=== PATIENT | male | born 1990 | race Caucasian/White ===

== ENCOUNTER → 2017-01-16 | Outpatient (CLI) | payer OTHER | END | disposition home or self-care (01) | LOC: CPPFTMAIN 11:48 | PROVIDERS: ATTEND Family Medicine | DX: J45.40 Moderate persistent asthma, uncomplicated (principal) | CPT/HCPCS: 94060; 94726; 94729 ==

== ENCOUNTER → 2017-08-08 | Outpatient (CLI) | payer OTHER ==
--- NOTE | 2017-08-15 10:40 | P.ARTDOP ---
Arterial Doppler LOWER EXTREMITY ARTERIAL DOPPLER: DATE OF SERVICE: 08/08/2017 Reason for study: Foot pain. Doppler waveforms: Multiphasic bilaterally throughout. Pulse volume recording: Normal configuration. Pressure gradients: None. Ankle-brachial indices: Greater than 1 bilaterally. Toe pressures: 77 on the right, 98 on the left Impression: Normal study.
== END | disposition home or self-care (01) ==
LOC: RADUSWWP 12:45
PROVIDERS: ATTEND Family Medicine
DX: R20.2 Paresthesia of skin (principal)
CPT/HCPCS: 93923

== ENCOUNTER 2017-09-08 08:36 | Emergency (ER) | payer OTHER ==
[2017-09-08 08:45] VITALS: PULSE 83; TEMP 98.2
--- NOTE | 2017-09-08 10:07 | ED ---
URI HPI - General Chief Complaint: Upper Respiratory Infection Stated Complaint: drainage Time Seen by Provider: 09/08/17 08:53 Source: patient, RN notes reviewed Mode of arrival: ambulatory Limitations: no limitations - History of Present Illness Initial Comments: This a 27-year-old male presents emergency Department with chief complaint of cough congestion over the last week. Patient states symptoms do not seem to be improving. He states he did have a fever beginning and states that currently he just feels very rundown and achy. He's been taking some DayQuil and NyQuil with minimal relief. He denies any shortness of breath though that he does have asthma and uses his breathing treatments as needed. Patient denies any nausea vomiting diarrhea constipation - Related Data Home Medications Medication Instructions Recorded Confirmed Albuterol Nebulized [Ventolin 2.5 mg INHALATION DAILY PRN 03/27/17 03/27/17 Nebulized] Aspirin 325 mg PO DAILY PRN 03/27/17 03/27/17 Budesonide-Formot 160-4.5 Mcg 2 puff INHALATION BID PRN 03/27/17 03/27/17 [Symbicort 160-4.5 Mcg Inhaler] Montelukast [Singulair] 10 mg PO HS 03/27/17 03/27/17 Allergies Allergy/AdvReac Type Severity Reaction Status Date / Time egg Allergy Rash/Hives Verified 09/08/17 08:46 latex Allergy Rash/Hives Verified 09/08/17 08:46 Penicillins Allergy Unknown Verified 09/08/17 08:46 antibiotics Allergy Unknown Uncoded 09/08/17 08:46 antihistamines Allergy Unknown Uncoded 09/08/17 08:46 Review of Systems ROS Statement: Those systems with pertinent positive or pertinent negative responses have been documented in the HPI. ROS Other: All systems not noted in ROS Statement are negative. Past Medical History Past Medical History: Asthma, GERD/Reflux, Osteoarthritis (OA), Pneumonia Additional Past Medical History / Comment(s): eosinophilic gastroenteritis, osteoporosis, History of Any Multi-Drug Resistant Organisms: None Reported Past Surgical History: Unable to Obtain Additional Past Surgical History / Comment(s): surgery for undescended testicle , EGD, colonocopy Past Anesthesia/Blood Transfusion Reactions: Previous Problems w/ Anesthesia, Motion Sickness Additional Past Anesthesia/Blood Transfusion Reaction / Comment(s): "My heart stopped and I stopped breathing age 10 during a EGD/colonoscopy", was done at [facility] about 15 yrs ago. Past Psychological History: Anxiety, Depression, PTSD Smoking Status: Never smoker Past Alcohol Use History: None Reported Past Drug Use History: None Reported - Past Family History Mother Family Medical History: Cancer Father Family Medical History: Cancer General Exam Limitations: no limitations General appearance: alert, in no apparent distress Head exam: Present: atraumatic, normocephalic, normal inspection Eye exam: Present: normal appearance, PERRL, EOMI. Absent: scleral icterus, conjunctival injection, periorbital swelling ENT exam: Present: normal exam, normal oropharynx, mucous membranes moist, TM's normal bilaterally, normal external ear exam Neck exam: Present: normal inspection, full ROM. Absent: tenderness, meningismus, lymphadenopathy Respiratory exam: Present: normal lung sounds bilaterally. Absent: respiratory distress, wheezes, rales, rhonchi, stridor Cardiovascular Exam: Present: regular rate, normal rhythm, normal heart sounds. Absent: systolic murmur, diastolic murmur, rubs, gallop, clicks Course Vital Signs 09/08/17 08:43 Temperature 98.2 F Pulse Rate 83 Respiratory 22 Rate Blood Pressure 115/86 O2 Sat by Pulse 100 Oximetry Medical Decision Making - Medical Decision Making 27-year-old male presented for cough congestion. Patient has influenza a chest x-ray within normal limits. Patient symptoms aren't present for 5-6 days will not be treated with him was reviewed at this time. Patient will follow-up for recheck. - Lab Data Lab Results 09/08/17 Range/Units 09:17 Influenza Type A RNA Detected H (Not Detectd) Influenza Type B (PCR) Not Detected (Not Detectd) Disposition Clinical Impression: Influenza Disposition: HOME SELF-CARE Condition: Stable Instructions: Influenza (ED) Additional Instructions: Please return to the Emergency Department if symptoms worsen or any other concerns. Referrals: Breanna Mao MD [Primary Care Provider] - 1-2 days Time of Disposition: 10:23
--- NOTE | 2017-09-08 10:21 | XR ---
EXAMINATION TYPE: XR chest 2V DATE OF EXAM: 09/08/2017 HISTORY: Cough. REFERENCE: Previous study dated 09/13/2015. FINDINGS: The lungs are clear. Pleural space are clear. The heart is not enlarged. IMPRESSION: NORMAL CHEST.
[2017-09-08 10:38] VITALS: BP 121/56; RESP 20
== END 2017-09-08 10:38 | disposition home or self-care (01) ==
LOC: EC 08:36
DX: J10.1 Influenza due to other identified influenza virus with other respiratory manifestations (principal); J45.909 Unspecified asthma, uncomplicated; Z79.899 Other long term (current) drug therapy; Z88.0 Allergy status to penicillin; Z88.1 Allergy status to other antibiotic agents; Z88.8 Allergy status to other drugs, medicaments and biological substances; Z91.012 Allergy to eggs; Z91.040 Latex allergy status; Z87.01 Personal history of pneumonia (recurrent)
CPT/HCPCS: 71046; 87502; 99283

== ENCOUNTER → 2018-10-03 | Outpatient (CLI) | payer OTHER ==
--- NOTE | 2018-10-03 16:12 | XR ---
EXAMINATION TYPE: XR chest 1V DATE OF EXAM: 10/03/2018 COMPARISON: Prior chest x-ray 09/08/2017 HISTORY: Abdominal pain, bowel habit changes TECHNIQUE: Single frontal view of the chest is obtained. FINDINGS: There is no focal air space opacity, pleural effusion, or pneumothorax seen. The cardiac silhouette size is within normal limits. The osseous structures are intact. IMPRESSION: No acute process.
--- NOTE | 2018-10-03 16:13 | XR ---
EXAMINATION TYPE: XR abdomen 2V DATE OF EXAM: 10/03/2018 4:08 PM CLINICAL HISTORY: Lower abdominal pain TECHNIQUE: Supine and upright views of the abdomen were obtained. COMPARISON: None. FINDINGS: There is a dextroscoliotic curvature on the upright view does not persist on the supine vie w and is positional. Scattered gas is seen in non-distended small bowel loops. Gas and fecal material is seen in non-distended colon. There is no pneumoperitoneum or abnormal calcification appreciated. The lung bases are clear and the osseous structures are intact. IMPRESSION: Nonobstructive bowel gas pattern.
== END | disposition home or self-care (01) ==
LOC: RADXRMAIN 15:48
PROVIDERS: ATTEND Family Medicine
DX: R10.84 Generalized abdominal pain (principal); R19.4 Change in bowel habit
CPT/HCPCS: 71045; 74019

== ENCOUNTER → 2018-10-04 | Outpatient (CLI) | payer OTHER ==
--- NOTE | 2018-10-04 10:47 | US ---
EXAMINATION TYPE: US abdomen complete DATE OF EXAM: 10/04/2018 COMPARISON: NONE CLINICAL HISTORY: R10.84 Gen Abd Pain, R19.4 Bowel Habit Changes. EXAM MEASUREMENTS: Liver Length: 12.7 cm Gallbladder Wall: 0.3 cm CBD: 0.3 cm Spleen: 10.3 cm Right Kidney: 9.8 x 3.6 x 4.4 cm Left Kidney: 9.4 x 5.1 x 4.3 cm Pancreas: Tail obscured by overlying bowel gas Liver: wnl Gallbladder: Wall measuring upper limits of normal Evidence for sonographic Woodruff's sign: No CBD: wnl Spleen: wnl Right Kidney: No hydronephrosis or masses seen Left Kidney: No hydronephrosis or masses seen Upper IVC: wnl Abd Aorta: wnl The liver is homogenous. The intrahepatic portion of the IVC and proximal abdominal aorta are within normal limits. There is no evidence of cholelithiasis. Common bile duct is unremarkable. The visu alized portions of the pancreas are homogenous. The spleen is unremarkable. Kidneys are symmetric a nd free of hydronephrosis. No renal lesions are seen. IMPRESSION: Gallbladder wall appears upper limits of normal. Otherwise unremarkable abdominal ultraso und. HIDA scan with CCK could evaluate for chronic cholecystitis or biliary dyskinesia there is furth er clinical concern.
== END | disposition home or self-care (01) ==
LOC: RADUSWWP 10:08
PROVIDERS: ATTEND Family Medicine
DX: R10.84 Generalized abdominal pain (principal); R19.4 Change in bowel habit
CPT/HCPCS: 76700

== ENCOUNTER → 2018-10-26 | Outpatient (CLI) | payer OTHER ==
--- NOTE | 2018-10-26 14:39 | NM ---
EXAMINATION TYPE: NM hepatobiliary w CCK DATE OF EXAM: 10/26/2018 COMPARISON: Abdominal ultrasound dated 10/04/2018 HISTORY: Abdominal pain TECHNIQUE: After the intravenous administration of 5.1 mCi Tc 99m Mebrofenin hepatobiliary scintigrap hy is performed. Immediate images post injection. FINDINGS: There is satisfactory initial accumulation of tracer by the liver. The gallbladder is visualized wit hin 34 minutes. The small bowel activity is noted within 12 minutes. At one hour CCK was administer ed, patient was injected with 1.1 mcg of Kinevac, and gallbladder ejection fraction is calculated at 19 %, abnormal. Therefore there is no scintigraphic evidence of cystic or common bile duct obstructi on to suggest acute cholecystitis or gallbladder dyskinesia. IMPRESSION: 1. Abnormal gallbladder ejection fraction of 19% corresponding to biliary dyskinesia. 2. No scintigraphic evidence of acute or chronic cholecystitis.
== END | disposition home or self-care (01) ==
LOC: RADNMMAIN 11:45
PROVIDERS: ATTEND Family Medicine
DX: K82.8 Other specified diseases of gallbladder (principal)
CPT/HCPCS: 78227; A9537; J2805

== ENCOUNTER 2019-11-03 18:16 | Emergency (ER) | payer OTHER ==
[2019-11-03 18:23] VITALS: BP 121/76; PULSE 81; TEMP 98
[2019-11-03 18:43] VITALS: RESP 16
--- NOTE | 2019-11-03 19:10 | XR ---
EXAMINATION TYPE: XR chest 2V DATE OF EXAM: 11/03/2019 COMPARISON: 10/03/2018 HISTORY: Chest pain. Cough TECHNIQUE: FINDINGS: Heart and mediastinum are normal. Lungs are clear. Diaphragm is normal. Bony thorax is inta ct. IMPRESSION: Normal chest. No change.
--- NOTE | 2019-11-03 19:23 | ED ---
URI HPI - General Chief Complaint: Upper Respiratory Infection Stated Complaint: REJI Time Seen by Provider: 11/03/19 18:27 Source: patient Mode of arrival: ambulatory Limitations: no limitations - History of Present Illness Initial Comments: Patient is a 29-year-old male presenting to emergency Department with complaints of a mild cough 2 days. He states he has a history of severe asthma. He did call his PCPs office today but they were not able to see him for a checkup so patient said to come to the ER. He denies any fever, shortness of breath, chest pain, abdominal pain, nausea, vomiting. He simply states that he feels like his cough is getting worse and he feels like he might need a round of steroids. He said he tried his nebulizer treatment at home with only mild improvement in symptoms. He has no other complaints at this time. Upon arrival to the ER, his vital signs are stable. - Related Data Home Medications Medication Instructions Recorded Confirmed Albuterol Nebulized [Ventolin 2.5 mg INHALATION DAILY PRN 03/27/17 03/27/17 Nebulized] Aspirin 325 mg PO DAILY PRN 03/27/17 03/27/17 Budesonide-Formot 160-4.5 Mcg 2 puff INHALATION BID PRN 03/27/17 03/27/17 [Symbicort 160-4.5 Mcg Inhaler] Montelukast [Singulair] 10 mg PO HS 03/27/17 03/27/17 Previous Rx's Medication Instructions Recorded methylPREDNISolone [Medrol Dose 4 mg PO DIRECTED #1 pack 11/03/19 Pack] Allergies Allergy/AdvReac Type Severity Reaction Status Date / Time egg Allergy Rash/Hives Verified 11/03/19 18:23 latex Allergy Rash/Hives Verified 11/03/19 18:23 Penicillins Allergy Unknown Verified 11/03/19 18:23 antibiotics Allergy Unknown Uncoded 11/03/19 18:23 antihistamines Allergy Unknown Uncoded 11/03/19 18:23 Review of Systems ROS Statement: Those systems with pertinent positive or pertinent negative responses have been documented in the HPI. ROS Other: All systems not noted in ROS Statement are negative. Past Medical History Past Medical History: Asthma, GERD/Reflux, Osteoarthritis (OA), Pneumonia Additional Past Medical History / Comment(s): eosinophilic gastroenteritis, osteoporosis, History of Any Multi-Drug Resistant Organisms: None Reported Past Surgical History: Unable to Obtain Additional Past Surgical History / Comment(s): surgery for undescended testicle, EGD, colonocopy Past Anesthesia/Blood Transfusion Reactions: Previous Problems w/ Anesthesia, Motion Sickness Additional Past Anesthesia/Blood Transfusion Reaction / Comment(s): "My heart stopped and I stopped breathing age 10 during a EGD/colonoscopy", was done at [facility] about 15 yrs ago. Past Psychological History: Anxiety, Depression, PTSD Smoking Status: Never smoker Past Alcohol Use History: None Reported Past Drug Use History: None Reported - Past Family History Mother Family Medical History: Cancer Father Family Medical History: Cancer General Exam - General Exam Comments Initial Comments: GENERAL: Well-appearing, well-nourished and in no acute distress. HEAD: Atraumatic, normocephalic. EYES: Pupils equal round and reactive to light, extraocular movements intact, sclera anicteric, conjunctiva are normal. ENT: TMs normal, nares patent, oropharynx clear without exudates. Moist mucous membranes. NECK: Normal range of motion, supple without lymphadenopathy or JVD. LUNGS: Breath sounds clear to auscultation bilaterally and equal. No wheezes rales or rhonchi. HEART: Regular rate and rhythm without murmurs, rubs or gallops. ABDOMEN: Soft, nontender, normoactive bowel sounds. No guarding, no rebound. No masses appreciated. : Deferred EXTREMITIES: Normal range of motion, no pitting or edema. No clubbing or cyanosis. NEUROLOGICAL: Normal speech, normal gait. PSYCH: Normal mood, normal affect. SKIN: Warm, Dry, normal turgor, no rashes or lesions noted. Limitations: no limitations Course Vital Signs 11/03/19 11/03/19 18:20 18:42 Temperature 98.0 F Pulse Rate 81 Respiratory 18 16 Rate Blood Pressure 121/76 O2 Sat by Pulse 99 Oximetry Medical Decision Making - Medical Decision Making Patient is a 29-year-old male presenting with a cough 2 days. He does have a history of severe asthma. Patient's exam is unremarkable. His vital signs are stable. Chest x-ray shows no acute findings. Patient is influenza-negative. I discussed with patient this is most likely viral in nature. He will be given a short course of steroids secondary to acute asthma exacerbation. He is in agreement with this plan of care. Patient will follow up with PCP as needed. Return parameters were discussed with the patient and he verbalized understanding. Case discussed with Dr. Diaz. - Lab Data Lab Results 11/03/19 Range/Units 18:37 Influenza Type A RNA Not Detected (Not Detectd) Influenza Type B (PCR) Not Detected (Not Detectd) Disposition Clinical Impression: Viral infection Disposition: HOME SELF-CARE Condition: Stable Instructions (If sedation given, give patient instructions): Upper Respiratory Infection (ED) Additional Instructions: Please return to the Emergency Department if symptoms worsen or any other concerns. Take steroids as prescribed. Follow-up with PCP as needed. Prescriptions: methylPREDNISolone [Medrol Dose Pack] 4 mg PO DIRECTED #1 pack Is patient prescribed a controlled substance at d/c from ED?: No Referrals: Breanna Mao MD [Primary Care Provider] - 1-2 days
== END 2019-11-03 19:28 | disposition home or self-care (01) ==
LOC: EC 18:16
DX: B34.9 Viral infection, unspecified (principal); J45.901 Unspecified asthma with (acute) exacerbation; Z79.899 Other long term (current) drug therapy; Z88.0 Allergy status to penicillin; Z91.040 Latex allergy status; Z88.1 Allergy status to other antibiotic agents; Z88.8 Allergy status to other drugs, medicaments and biological substances; Z91.012 Allergy to eggs
CPT/HCPCS: 71046; 87502; 99285

== ENCOUNTER 2020-02-26 06:04 | Emergency (ER) | payer OTHER ==
[2020-02-26] MEDS ORDERED: IPRATROPIUM-ALBUTEROL 3 ML NEB INHALATION STA (06:29)
--- NOTE | 2020-02-26 06:35 | ED ---
SOB HPI - General Chief Complaint: Shortness of Breath Stated Complaint: REIJ Time Seen by Provider: 02/26/20 06:15 Source: patient Mode of arrival: ambulatory - History of Present Illness Initial Comments: Patient is a 30-year-old male, with history of asthma, presenting to the emergency Department with complaints of shortness of breath and chest tightness over the last week. Patient states he was seen at [facility] 2 days ago for same complaint and was sent home with a steroid Dosepak. He states his chest x- ray was clear at that time. He states he did try an albuterol treatment at approximately 11 PM or midnight last night. He states he woke up this morning feeling the same so he wanted to be seen again. He states that his family member recently tested positive for COVID, so he was concerned for that as well and wanted to be tested. He denies any recent fever, chills, nausea, vomiting. He states he has had one episode of diarrhea. He has no further complaints at this time. Upon arrival to the ER, his vital signs are stable. - Related Data Home Medications Medication Instructions Recorded Confirmed Albuterol Nebulized [Ventolin 2.5 mg INHALATION DAILY PRN 03/27/17 03/27/17 Nebulized] Aspirin 325 mg PO DAILY PRN 03/27/17 03/27/17 Budesonide-Formot 160-4.5 Mcg 2 puff INHALATION BID PRN 03/27/17 03/27/17 [Symbicort 160-4.5 Mcg Inhaler] Montelukast [Singulair] 10 mg PO HS 03/27/17 03/27/17 Previous Rx's Medication Instructions Recorded methylPREDNISolone [Medrol Dose 4 mg PO DIRECTED #1 pack 11/03/19 Pack] Allergies Allergy/AdvReac Type Severity Reaction Status Date / Time egg Allergy Rash/Hives Verified 02/26/20 06:12 latex Allergy Rash/Hives Verified 02/26/20 06:12 Penicillins Allergy Unknown Verified 02/26/20 06:12 antibiotics Allergy Unknown Uncoded 11/03/19 18:23 antihistamines Allergy Unknown Uncoded 11/03/19 18:23 Review of Systems ROS Statement: Those systems with pertinent positive or pertinent negative responses have been documented in the HPI. ROS Other: All systems not noted in ROS Statement are negative. Past Medical History Past Medical History: Asthma, GERD/Reflux, Osteoarthritis (OA), Pneumonia Additional Past Medical History / Comment(s): eosinophilic gastroenteritis, osteoporosis, History of Any Multi-Drug Resistant Organisms: None Reported Past Surgical History: Unable to Obtain Additional Past Surgical History / Comment(s): surgery for undescended testicle, EGD, colonocopy Past Anesthesia/Blood Transfusion Reactions: Previous Problems w/ Anesthesia, Motion Sickness Additional Past Anesthesia/Blood Transfusion Reaction / Comment(s): "My heart stopped and I stopped breathing age 10 during a EGD/colonoscopy", was done at [facility] about 15 yrs ago. Past Psychological History: Anxiety, Depression, PTSD Smoking Status: Never smoker Past Alcohol Use History: Occasional Past Drug Use History: None Reported - Past Family History Mother Family Medical History: Cancer Father Family Medical History: Cancer General Exam - General Exam Comments Initial Comments: GENERAL: Patient appears anxious however he is well-appearing, well-nourished and in no acute distress. HEAD: Atraumatic, normocephalic. EYES: Pupils equal round and reactive to light, extraocular movements intact, sclera anicteric, conjunctiva are normal. ENT: TMs normal, nares patent, oropharynx clear without exudates. Moist mucous membranes. NECK: Normal range of motion, supple without lymphadenopathy or JVD. LUNGS: Breath sounds clear to auscultation bilaterally and equal. No wheezes rales or rhonchi. HEART: Regular rate and rhythm without murmurs, rubs or gallops. ABDOMEN: Soft, nontender, normoactive bowel sounds. No guarding, no rebound. No masses appreciated. : Deferred EXTREMITIES: Normal range of motion, no pitting or edema. No clubbing or cyanosis. NEUROLOGICAL: Normal speech, normal gait. PSYCH: Normal mood, normal affect. SKIN: Warm, Dry, normal turgor, no rashes or lesions noted. Course Vital Signs 02/26/20 02/26/20 02/26/20 06:09 06:16 07:03 Temperature 97.8 F Pulse Rate 74 75 Respiratory 23 22 Rate Blood Pressure 124/90 O2 Sat by Pulse 100 Oximetry 02/26/20 02/26/20 07:18 07:45 Temperature Pulse Rate 86 80 Respiratory 18 Rate Blood Pressure 109/74 O2 Sat by Pulse 98 Oximetry Medical Decision Making - Medical Decision Making Patient is a 30-year-old male with history of asthma presenting with stress of breath, chest tightness for the past week. He was seen at [facility] 2 days ago started dose pack. Vitals are stable upon arrival, stating percent on room air. His exam is unremarkable, no wheezing. Chest x-ray shows no acute abnormalities, EKG shows no signs of acute ischemia. Patient was given a breathing treatment and steroids in the ER. He states he feels improvement. Patient will be tested for Covid secondary to recent exposure. This is pending at this time. He is stable for discharge. He'll continue with his oral steroids tomorrow. Patient is agreement with this plan of care. He'll follow up with his PCP. Return parameters were discussed with the patient and he verbalized understanding. - EKG Data EKG Comments: Normal sinus rhythm, normal ECG, no signs of acute ischemia. Ventricular rate 79, NJ interval 116, QT 378. Disposition Clinical Impression: Asthma exacerbation, Viral illness Disposition: HOME SELF-CARE Condition: Stable Instructions (If sedation given, give patient instructions): Asthma (ED) Additional Instructions: Please return to the Emergency Department if symptoms worsen or any other concerns. Continue with oral steroids tomorrow. Follow-up with PCP. Is patient prescribed a controlled substance at d/c from ED?: No Referrals: Breanna Mao MD [Primary Care Provider] - 1-2 days
--- NOTE | 2020-02-26 06:52 | XR ---
EXAM: XR Chest, 2 Views CLINICAL HISTORY: Chest tightness TECHNIQUE: Frontal and lateral views of the chest. COMPARISON: No relevant prior studies available. FINDINGS: Lungs: Unremarkable. No consolidation. Pleural space: Unremarkable. No pneumothorax. Heart: Unremarkable. No cardiomegaly. Mediastinum: Unremarkable. Bones/joints: Unremarkable. IMPRESSION: Normal chest x-rays.
[2020-02-26] MEDS ORDERED: methylPREDNISolone SOD SUCCI 125 MG/2 ML VIAL IM ONE (07:27)
[2020-02-27 09:52] VITALS: BP 109/74; PULSE 80; RESP 18; TEMP 97.8
== END 2020-02-26 07:45 | disposition home or self-care (01) ==
LOC: EC 06:04
DX: J45.901 Unspecified asthma with (acute) exacerbation (principal); B34.9 Viral infection, unspecified; R19.7 Diarrhea, unspecified; Z20.828 Contact with and (suspected) exposure to other viral communicable diseases; Z79.51 Long term (current) use of inhaled steroids; Z79.899 Other long term (current) drug therapy; Z91.012 Allergy to eggs; Z91.040 Latex allergy status; Z88.0 Allergy status to penicillin; Z88.1 Allergy status to other antibiotic agents; Z88.8 Allergy status to other drugs, medicaments and biological substances
CPT/HCPCS: 71046; 93005; 94640; 96372; 99285

== ENCOUNTER 2020-03-29 15:13 | Emergency (ER) | payer OTHER ==
[2020-03-29 15:27] VITALS: TEMP 98.1
--- NOTE | 2020-03-29 16:09 | XR ---
EXAMINATION TYPE: XR chest 1V portable DATE OF EXAM: 03/29/2020 CLINICAL HISTORY: Cough and intermittent chest tightness for one week. TECHNIQUE: Upright portable view of the chest obtained. COMPARISON: 02/26/2020 chest radiograph. FINDINGS: Lungs are mildly hyperinflated. The cardiomediastinal silhouette is within normal limits fo r size. Pulmonary vasculature is normal. There is no focal air space opacity, pleural effusion, or pn eumothorax seen. The osseous structures are intact. IMPRESSION: Mild hyperinflation. No focal opacity.
--- NOTE | 2020-03-29 16:23 | ED ---
General Adult HPI - General Chief complaint: Shortness of Breath Stated complaint: Chest pain Time Seen by Provider: 03/29/20 15:37 Source: patient, RN notes reviewed, old records reviewed Mode of arrival: wheelchair Limitations: no limitations - History of Present Illness Initial comments: 30-year-old male history of asthma presenting for evaluation of cough and dyspnea. Patient states he had asthma exacerbation by one month ago and was placed on steroids at that time. Today he's had increased productive cough and mild dyspnea. He states is similar to previous asthma exacerbations. Denies fever. His main concern is that he came in contact with a person who may have had COVID and his doctor recommended he be tested. Patient denies chest pain. Denies fever. Denies abdominal pain nausea vomiting. - Related Data Home Medications Medication Instructions Recorded Confirmed Albuterol Nebulized [Ventolin 2.5 mg INHALATION DAILY PRN 03/27/17 03/27/17 Nebulized] Aspirin 325 mg PO DAILY PRN 03/27/17 03/27/17 Budesonide-Formot 160-4.5 Mcg 2 puff INHALATION BID PRN 03/27/17 03/27/17 [Symbicort 160-4.5 Mcg Inhaler] Montelukast [Singulair] 10 mg PO HS 03/27/17 03/27/17 Previous Rx's Medication Instructions Recorded methylPREDNISolone [Medrol Dose 4 mg PO DIRECTED #1 pack 11/03/19 Pack] methylPREDNISolone Dose Pack 4 mg PO DIRECTED #21 package 03/29/20 [Medrol Dose Pack] Allergies Allergy/AdvReac Type Severity Reaction Status Date / Time egg Allergy Rash/Hives Verified 03/29/20 15:27 latex Allergy Rash/Hives Verified 03/29/20 15:27 Penicillins Allergy Unknown Verified 03/29/20 15:27 antibiotics Allergy Unknown Uncoded 03/29/20 15:27 antihistamines Allergy Unknown Uncoded 03/29/20 15:27 Review of Systems ROS Statement: Those systems with pertinent positive or pertinent negative responses have been documented in the HPI. ROS Other: All systems not noted in ROS Statement are negative. Past Medical History Past Medical History: Asthma, GERD/Reflux, Osteoarthritis (OA), Pneumonia Additional Past Medical History / Comment(s): eosinophilic gastroenteritis, osteoporosis, History of Any Multi-Drug Resistant Organisms: None Reported Past Surgical History: Unable to Obtain Additional Past Surgical History / Comment(s): surgery for undescended testicle, EGD, colonocopy Past Anesthesia/Blood Transfusion Reactions: Previous Problems w/ Anesthesia, Motion Sickness Additional Past Anesthesia/Blood Transfusion Reaction / Comment(s): "My heart stopped and I stopped breathing age 10 during a EGD/colonoscopy", was done at [facility] about 15 yrs ago. Past Psychological History: Anxiety, Depression, PTSD Smoking Status: Never smoker Past Alcohol Use History: None Reported Past Drug Use History: None Reported - Past Family History Mother Family Medical History: Cancer Father Family Medical History: Cancer General Exam Limitations: no limitations General appearance: alert Head exam: Present: atraumatic, normocephalic Eye exam: Present: normal appearance, PERRL ENT exam: Present: normal exam Neck exam: Present: normal inspection. Absent: tenderness, meningismus Respiratory exam: Present: normal lung sounds bilaterally, other (Good air entry, no wheezing). Absent: respiratory distress, wheezes, rales, rhonchi Cardiovascular Exam: Present: regular rate, normal rhythm Extremities exam: Present: normal inspection, normal capillary refill. Absent: pedal edema, calf tenderness Neurological exam: Present: alert, oriented X3 Psychiatric exam: Present: normal affect, normal mood Course Vital Signs 03/29/20 15:23 Temperature 98.1 F Pulse Rate 93 Respiratory 22 Rate Blood Pressure 118/79 O2 Sat by Pulse 99 Oximetry Medical Decision Making - Medical Decision Making 30-year-old male with cough. Patient well-appearing with stable vitals, he has good air entry with no wheezing, no rhonchi. Chest x-ray performed which is negative for focal pneumonia or acute findings. Patient is concerned that he may have coronavirus. Patient is instructed to remained quarantined until his test results are available proximally 48 hours. He will be given a Medrol Dosepak for mild asthma exacerbation with bronchospastic cough. Disposition Clinical Impression: Asthma Disposition: HOME SELF-CARE Condition: Good Instructions (If sedation given, give patient instructions): Asthma (ED) Additional Instructions: Please remain quarantined until testing has resulted Prescriptions: methylPREDNISolone Dose Pack [Medrol Dose Pack] 4 mg PO DIRECTED #21 package Is patient prescribed a controlled substance at d/c from ED?: No Referrals: Breanna Mao MD [Primary Care Provider] - 1-2 days Time of Disposition: 16:22
[2020-03-29 16:40] VITALS: BP 112/78; PULSE 96; RESP 20
== END 2020-03-29 16:38 | disposition home or self-care (01) ==
LOC: EC 15:13
DX: J45.901 Unspecified asthma with (acute) exacerbation (principal); M19.90 Unspecified osteoarthritis, unspecified site; Z79.899 Other long term (current) drug therapy; Z91.012 Allergy to eggs; Z91.040 Latex allergy status; Z88.0 Allergy status to penicillin; Z88.6 Allergy status to analgesic agent; Z20.828 Contact with and (suspected) exposure to other viral communicable diseases
CPT/HCPCS: 71045; 99285; U0003

== ENCOUNTER 2020-04-08 11:58 | Emergency (ER) | payer OTHER ==
[2020-04-08] MEDS ORDERED: SODIUM CHLORIDE 0.9% 1,000 ML IV STA (12:23)
[2020-04-08] MEDS ORDERED: SODIUM CHLORIDE 0.9% 500 ML 500 ML IV STA (12:23)
[2020-04-08] MEDS ORDERED: KETOROLAC 15 MG/ML 1 ML VIAL IVP STA (12:23)
[2020-04-08] MEDS ORDERED: ONDANSETRON 4 MG/2 ML VIAL IVP STA (12:23)
[2020-04-08 12:53] LABS: Basophils # (A) 0.1 k/uL (0-0.2); Basophils % (A) 1 %; Eosinophils # (A) 0.1 k/uL (0-0.7); Eosinophils % (A) 1 %; HCT 46.6 % (39.0-53.0); HGB 15.4 gm/dL (13.0-17.5); Lymphocytes # (A) 1.5 k/uL (1.0-4.8); Lymphocytes % (A) 14 %; MCH 29.3 pg (25.0-35.0); Mean Platelet Volume 7.2; Monocytes # (A) 0.5 k/uL (0-1.0); Monocytes % (A) 4 %; Neutrophils # (A) 8.8 k/uL (1.3-7.7); Neutrophils % (A) 79 %; Platelet Count 381 k/uL (150-450); RBC 5.24 m/uL (4.30-5.90); WBC 11.1 k/uL (3.8-10.6)
[2020-04-08 13:03] LABS: ALT 18 U/L (4-49); AST 23 U/L (17-59); African American GFR (CKD) >90 (>60 ml/min/1.73 sqM); Albumin 4.6 g/dL (3.5-5.0); Alkaline Phosphatase 67 U/L (38-126); Anion Gap 10 mmol/L; Blood Urea Nitrogen 11 mg/dL (9-20); Calcium 9.8 mg/dL (8.4-10.2); Carbon Dioxide 21 mmol/L (22-30); Chloride 104 mmol/L (98-107); Glucose 109 mg/dL (74-99); Non-African American GFR(CKD) >90 (>60 ml/min/1.73 sqM); Potassium 4.1 mmol/L (3.5-5.1); Sodium 135 mmol/L (137-145); Total Bilirubin 0.5 mg/dL (0.2-1.3)
--- NOTE | 2020-04-08 13:13 | CT ---
EXAMINATION TYPE: CT abdomen pelvis wo con DATE OF EXAM: 04/08/2020 COMPARISON: None HISTORY: 30-year-old male Left flank pain. CT DLP: 466.9 mGycm. Automated exposure control for dose reduction was used. TECHNIQUE: Contiguous axial scanning of the abdomen and pelvis without IV contrast. Coronal and sagit buster reconstructions performed. FINDINGS: Heart normal size of the pericardial effusion. Lung bases clear without pleural effusion. Noncontrast appearance of the liver, gallbladder, adrenal glands, spleen, pancreas shows no gross abn ormality. Kidneys show no evidence for nephrolithiasis or hydronephrosis. No dilated small bowel, free fluid, free air. No mesenteric or retroperitoneal lymphadenopathy. Normal appendix. Scattered moderate stool. No pericolic inflammatory change. Bladder urine distended. Prostate gland is mildly enlarged at 4.2 cm wide. No abnormal fluid collecti on in the pelvis or pelvic lymphadenopathy. 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 Minimal disc bulg ing above that of L4-L5. IMPRESSION: 1. 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 Minimal posterior disc b ulge at L4-L5. 2. No nephrolithiasis or hydronephrosis. 3. Mild prostatomegaly at 4.2 cm wide.
--- NOTE | 2020-04-08 13:19 | ED ---
Abdominal Pain HPI - General Chief Complaint: Abdominal Pain Stated Complaint: abd pain Time Seen by Provider: 04/08/20 12:10 Source: patient, RN notes reviewed Mode of arrival: wheelchair Limitations: no limitations - History of Present Illness Initial Comments: 30-year-old male presents emergency Department chief complaint of left flank pain. Patient states though, out of that sleeping. Patient has had some diarrhea recently. 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 Patient denies any melena or hematochezia. Patient states she's had some nausea vomiting no dysuria no hematuria denies any history kidney stones no prior abdominal surgeries. - Related Data Home Medications Medication Instructions Recorded Confirmed Albuterol Nebulized [Ventolin 2.5 mg INHALATION RT-Q6H PRN 03/27/17 04/08/20 Nebulized] Aspirin 325 mg PO DAILY PRN 03/27/17 04/08/20 Montelukast [Singulair] 10 mg PO HS 03/27/17 04/08/20 Albuterol Sulfate [Ventolin HFA] 2 puff INHALATION RT-QID PRN 04/08/20 04/08/20 Beclomethasone Dipropionate [Qvar 2 puff PO RT-BID 04/08/20 04/08/20 80mcg Redihaler] Previous Rx's Medication Instructions Recorded Ibuprofen [Motrin] 600 mg PO Q8HR PRN #20 tab 04/08/20 Allergies Allergy/AdvReac Type Severity Reaction Status Date / Time egg Allergy Rash/Hives Verified 04/08/20 13:53 latex Allergy Rash/Hives Verified 04/08/20 13:53 Penicillins Allergy Unknown Verified 04/08/20 13:53 antibiotics Allergy Unknown Uncoded 04/08/20 12:14 antihistamines Allergy Unknown Uncoded 04/08/20 12:14 Review of Systems ROS Statement: Those systems with pertinent positive or pertinent negative responses have been documented in the HPI. ROS Other: All systems not noted in ROS Statement are negative. Past Medical History Past Medical History: Asthma, GERD/Reflux, Osteoarthritis (OA), Pneumonia Additional Past Medical History / Comment(s): eosinophilic gastroenteritis, osteoporosis, History of Any Multi-Drug Resistant Organisms: None Reported Past Surgical History: Unable to Obtain Additional Past Surgical History / Comment(s): surgery for undescended testicle, EGD, colonocopy Past Anesthesia/Blood Transfusion Reactions: Previous Problems w/ Anesthesia, Motion Sickness Additional Past Anesthesia/Blood Transfusion Reaction / Comment(s): "My heart stopped and I stopped breathing age 10 during a EGD/colonoscopy", was done at [facility] about 15 yrs ago. Past Psychological History: Anxiety, Depression, PTSD Smoking Status: Never smoker Past Alcohol Use History: None Reported Past Drug Use History: None Reported - Past Family History Mother Family Medical History: Cancer Father Family Medical History: Cancer General Exam Limitations: no limitations General appearance: alert, in no apparent distress Head exam: Present: atraumatic, normocephalic, normal inspection Respiratory exam: Present: normal lung sounds bilaterally. Absent: respiratory distress, wheezes, rales, rhonchi, stridor Cardiovascular Exam: Present: regular rate, normal rhythm, normal heart sounds. Absent: systolic murmur, diastolic murmur, rubs, gallop, clicks GI/Abdominal exam: Present: soft, tenderness (Mild left-sided), normal bowel sounds. Absent: distended, guarding, rebound, rigid Back exam: Present: CVA tenderness (L). Absent: CVA tenderness (R) Neurological exam: Present: alert, oriented X3 Skin exam: Present: warm, dry, intact, normal color. Absent: rash Course Vital Signs 04/08/20 12:11 Temperature 98 F Pulse Rate 96 Respiratory 18 Rate Blood Pressure 103/73 O2 Sat by Pulse 99 Oximetry - Reevaluation(s) Reevaluation #1: 04/08/20 14:03 Patient reevaluated states the pain is improving. Patient's updated on labs and CT. Medical Decision Making - Medical Decision Making Labs CT and urinalysis reviewed and found to have no sick abnormality's. Patient's pain is improving. Patient has chronic abdominal issues related to his GI disorder. Patient will be discharged in stable condition return paramet ers were discussed. - Lab Data Result diagrams: 04/08/20 12:38 04/08/20 12:38 Lab Results 04/08/20 04/08/20 04/08/20 Range/Units 12:38 12:38 13:25 WBC 11.1 H (3.8-10.6) k/uL RBC 5.24 (4.30-5.90) m/uL Hgb 15.4 (13.0-17.5) gm/dL Hct 46.6 (39.0-53.0) % MCV 89.0 (80.0-100.0) fL MCH 29.3 (25.0-35.0) pg MCHC 33.0 (31.0-37.0) g/dL RDW 13.0 (11.5-15.5) % Plt Count 381 (150-450) k/uL Neutrophils % 79 % Lymphocytes % 14 % Monocytes % 4 % Eosinophils % 1 % Basophils % 1 % Neutrophils # 8.8 H (1.3-7.7) k/uL Lymphocytes # 1.5 (1.0-4.8) k/uL Monocytes # 0.5 (0-1.0) k/uL Eosinophils # 0.1 (0-0.7) k/uL Basophils # 0.1 (0-0.2) k/uL Sodium 135 L (137-145) mmol/L Potassium 4.1 (3.5-5.1) mmol/L Chloride 104 (98-107) mmol/L Carbon Dioxide 21 L (22-30) mmol/L Anion Gap 10 mmol/L BUN 11 (9-20) mg/dL Creatinine 0.74 (0.66-1.25) mg/dL Est GFR (CKD-EPI)AfAm >90 (>60 ml/min/1.73 sqM) Est GFR (CKD-EPI)NonAf >90 (>60 ml/min/1.73 sqM) Glucose 109 H (74-99) mg/dL Calcium 9.8 (8.4-10.2) mg/dL Total Bilirubin 0.5 (0.2-1.3) mg/dL AST 23 (17-59) U/L ALT 18 (4-49) U/L Alkaline Phosphatase 67 (38-126) U/L Total Protein 7.0 (6.3-8.2) g/dL Albumin 4.6 (3.5-5.0) g/dL Lipase 48 (23-300) U/L Urine Color Light Yellow Urine Appearance Clear (Clear) Urine pH 6.5 (5.0-8.0) Ur Specific Alvin 1.011 (1.001-1.035) Urine Protein Negative (Negative) Urine Glucose (UA) Negative (Negative) Urine Ketones Negative (Negative) Urine Blood Negative (Negative) Urine Nitrite Negative (Negative) Urine Bilirubin Negative (Negative) Urine Urobilinogen <2.0 (<2.0) mg/dL Ur Leukocyte Esterase Negative (Negative) Disposition Clinical Impression: Abdominal pain Disposition: HOME SELF-CARE Condition: Stable Instructions (If sedation given, give patient instructions): Abdominal Pain (ED) Additional Instructions: Please return to the Emergency Department if symptoms worsen or any other concerns. Prescriptions: Ibuprofen [Motrin] 600 mg PO Q8HR PRN #20 tab PRN Reason: Pain Is patient prescribed a controlled substance at d/c from ED?: No Referrals: Breanna Mao MD [Primary Care Provider] - 1-2 days Time of Disposition: 14:04
[2020-04-08 13:51] LABS: Appearance,Urine Clear (Clear); Bilirubin,Urine Negative (Negative); Blood,Urine Negative (Negative); Color,Urine Light Yellow; Glucose,Urine (UA) Negative (Negative); Ketones,Urine Negative (Negative); Leukocyte Esterase,Urine Negative (Negative); Nitrite,Urine Negative (Negative); PH, Urine 6.5 (5.0-8.0); Protein,Urine Negative (Negative); Specific Gravity,Urine 1.011 (1.001-1.035); Urobilinogen,Urine <2.0 mg/dL (<2.0)
[2020-04-08 14:23] VITALS: BP 110/70; PULSE 72; RESP 16; TEMP 98.7
== END 2020-04-08 14:23 | disposition home or self-care (01) ==
LOC: EC 11:58
DX: R10.9 Unspecified abdominal pain (principal); R19.7 Diarrhea, unspecified; R11.2 Nausea with vomiting, unspecified; J45.909 Unspecified asthma, uncomplicated; Z79.51 Long term (current) use of inhaled steroids; Z91.012 Allergy to eggs; Z91.040 Latex allergy status; Z88.0 Allergy status to penicillin; Z88.1 Allergy status to other antibiotic agents; Z88.8 Allergy status to other drugs, medicaments and biological substances; Z98.890 Other specified postprocedural states
CPT/HCPCS: 36415; 80053; 83690; 85025; 81003; 74176; 99284; 96374; 96375; 96361; J2405; J1885

== ENCOUNTER 2020-10-04 22:37 | Emergency (ER) | payer OTHER ==
[2020-10-04 22:49] VITALS: PULSE 89; TEMP 98.6
[2020-10-04] MEDS ORDERED: ACETAMINOPHEN TAB 500 MG TAB PO STA (23:38)
[2020-10-04] MEDS ORDERED: IBUPROFEN 800 MG TAB PO STA (23:38)
--- NOTE | 2020-10-04 23:55 | XR ---
EXAMINATION TYPE: XR ribs RT w pa chest xray DATE OF EXAM: 10/04/2020 COMPARISON: Chest x-ray 03/29/2020 HISTORY: Chest pain. Fall. Right-sided rib pain. TECHNIQUE: 5 views FINDINGS: Heart and mediastinum are normal. Lungs are clear of infiltrate. There is no pleural effusi on or pneumothorax. There is no evidence of a rib fracture. IMPRESSION: Normal chest. Normal right rib exam. Chest x-ray unchanged compared to old exam.
--- NOTE | 2020-10-05 00:10 | ED ---
Fall HPI - General Chief Complaint: Fall Stated Complaint: Fall, REJI Time Seen by Provider: 10/04/20 22:56 Source: patient, RN notes reviewed, old records reviewed Mode of arrival: wheelchair Limitations: no limitations - History of Present Illness Initial Comments: This is a 30-year-old male presents here today for evaluation status post fall. Patient of fall with a right rib injury. Patient is right side of his ribs mild shortness of breath and pain with deep breath. No other injury from his fall is noted. Patient has no other complaints no medical history takes no medications MD Complaint: fall -: hour(s) Fall From: standing When Fall Occurred: unsure Fall Witnessed: no Place Fall Occurred: home Loss of Consciousness: none Prolonged Down Time?: no Symptoms Prior to Fall: none Location: chest (Right-sided) Severity: mild Severity scale (1-10): 5 Quality: sharp Context: tripped/slipped Associated Symptoms: denies - Related Data Home Medications Medication Instructions Recorded Confirmed Albuterol Nebulized [Ventolin 2.5 mg INHALATION RT-Q6H PRN 03/27/17 04/08/20 Nebulized] Aspirin 325 mg PO DAILY PRN 03/27/17 04/08/20 Montelukast [Singulair] 10 mg PO HS 03/27/17 04/08/20 Albuterol Sulfate [Ventolin HFA] 2 puff INHALATION RT-QID PRN 04/08/20 04/08/20 Beclomethasone Dipropionate [Qvar 2 puff PO RT-BID 04/08/20 04/08/20 80mcg Redihaler] Previous Rx's Medication Instructions Recorded Ibuprofen [Motrin] 600 mg PO Q8HR PRN #20 tab 04/08/20 Allergies Allergy/AdvReac Type Severity Reaction Status Date / Time egg Allergy Rash/Hives Verified 10/04/20 22:49 latex Allergy Rash/Hives Verified 10/04/20 22:49 Penicillins Allergy Unknown Verified 10/04/20 22:49 antibiotics Allergy Unknown Uncoded 10/04/20 22:49 antihistamines Allergy Unknown Uncoded 10/04/20 22:49 Review of Systems ROS Statement: Those systems with pertinent positive or pertinent negative responses have been documented in the HPI. ROS Other: All systems not noted in ROS Statement are negative. Past Medical History Past Medical History: Asthma, GERD/Reflux, Osteoarthritis (OA), Pneumonia Additional Past Medical History / Comment(s): eosinophilic gastroenteritis, osteoporosis, History of Any Multi-Drug Resistant Organisms: None Reported Past Surgical History: Unable to Obtain Additional Past Surgical History / Comment(s): surgery for undescended testicle, EGD, colonocopy Past Anesthesia/Blood Transfusion Reactions: Previous Problems w/ Anesthesia, Motion Sickness Additional Past Anesthesia/Blood Transfusion Reaction / Comment(s): "My heart stopped and I stopped breathing age 10 during a EGD/colonoscopy", was done at [facility] about 15 yrs ago. Past Psychological History: Anxiety, Depression, PTSD Smoking Status: Never smoker Past Alcohol Use History: None Reported Past Drug Use History: None Reported - Past Family History Mother Family Medical History: Cancer Father Family Medical History: Cancer General Exam Limitations: no limitations General appearance: alert, in no apparent distress Head exam: Present: atraumatic, normocephalic, normal inspection Eye exam: Present: normal appearance, PERRL, EOMI. Absent: scleral icterus, conjunctival injection, periorbital swelling ENT exam: Present: normal exam, mucous membranes moist Neck exam: Present: normal inspection. Absent: tenderness, meningismus, lymphadenopathy Respiratory exam: Present: normal lung sounds bilaterally. Absent: respiratory distress, wheezes, rales, rhonchi, stridor Cardiovascular Exam: Present: regular rate, normal rhythm, normal heart sounds. Absent: systolic murmur, diastolic murmur, rubs, gallop, clicks GI/Abdominal exam: Present: soft, normal bowel sounds. Absent: distended, tenderness, guarding, rebound, rigid Extremities exam: Present: normal inspection, full ROM, normal capillary refill. Absent: tenderness, pedal edema, joint swelling, calf tenderness Back exam: Present: normal inspection Neurological exam: Present: alert, oriented X3, CN II-XII intact Psychiatric exam: Present: normal affect, normal mood Skin exam: Present: warm, dry, intact, normal color. Absent: rash Course Vital Signs 10/04/20 10/05/20 22:47 00:15 Temperature 98.6 F Pulse Rate 89 Respiratory 16 18 Rate Blood Pressure 110/74 112/80 O2 Sat by Pulse 98 99 Oximetry - Reevaluation(s) Reevaluation #1: Medical record is reviewed Patient has adequate pain control Medical Decision Making - Medical Decision Making 30 male to the ER for evaluation patient to the ER for evaluation regarding fall. Patient fall from standing while getting into his car today landing on his right ribs. No triadic injury noted the patient can be discharged home - Radiology Data Radiology results: report reviewed (X-ray right rib and chest is negative for acute medical injury), image reviewed Disposition Clinical Impression: Fall, Chest pain, Contusion of rib on right side Disposition: HOME SELF-CARE Condition: Good Instructions (If sedation given, give patient instructions): Rib Contusion (ED) Is patient prescribed a controlled substance at d/c from ED?: No Referrals: Breanna Mao MD [Primary Care Provider] - 1-2 days
[2020-10-05 00:17] VITALS: BP 112/80; RESP 18
== END 2020-10-05 00:16 | disposition home or self-care (01) ==
LOC: EC 22:37
DX: S20.20XA Contusion of thorax, unspecified, initial encounter (principal); R06.02 Shortness of breath; J45.909 Unspecified asthma, uncomplicated; M19.90 Unspecified osteoarthritis, unspecified site; Z79.51 Long term (current) use of inhaled steroids; Z79.52 Long term (current) use of systemic steroids; Z79.82 Long term (current) use of aspirin; Z88.0 Allergy status to penicillin; Z88.1 Allergy status to other antibiotic agents; Z88.8 Allergy status to other drugs, medicaments and biological substances; Z91.012 Allergy to eggs; Z91.040 Latex allergy status; W18.30XA Fall on same level, unspecified, initial encounter; Y93.89 Activity, other specified
CPT/HCPCS: 99284

== ENCOUNTER → 2020-10-15 | Outpatient (CLI) | payer OTHER ==
--- NOTE | 2020-10-15 11:34 | CT ---
EXAMINATION TYPE: CT chest wo con DATE OF EXAM: 10/15/2020 COMPARISON: None HISTORY: Chest Injury CT DLP: 214.[address] of the chest was performed with lung and mediastinal window settings submitted. The la ck of contrast limits evaluation of the vascular, mediastinal and parenchymal structures including th e upper abdomen. LUNGS: The lungs are clear and free of infiltrate. No atelectasis. No pulmonary nodule or mass is de tected. No pleural effusion. No CT evidence of interstitial lung disease. MEDIASTINUM/BETSEY: Thoracic aorta is of normal caliber with limited evaluation given lack of contrast . The heart is not enlarged. No evidence for mediastinal mass. No lymph nodes greater than 1cm. UPPER ABDOMEN: No significant abnormality is seen. OTHER: No significant other abnormality. IMPRESSION: 1. No significant abnormality appreciated.
--- NOTE | 2020-10-15 15:07 | NM ---
EXAMINATION TYPE: NM bone scan whole body DATE OF EXAM: 10/15/2020 COMPARISON: CT chest 10/15/2020 HISTORY: Chest injury Delayed whole-body scanning was performed following the injection of 24.1 mCi Tc 99m MDP. Images acq uired 3 hours post injection. FINDINGS: There is a focal area of uptake noted in the anterior right fifth rib. Corresponding cortical irregul arity is seen on the CT scan consistent with nondisplaced fracture. Uptake within the feet, knees, wr ists, shoulders is likely degenerative. There is mild spinal curvature. IMPRESSION: Findings likely represent posttraumatic fracture, correlate for appropriate history, foll ow-up could be performed to assess for fracture healing
== END | disposition home or self-care (01) ==
LOC: RADCTMAIN 10:49
PROVIDERS: ATTEND Internal Medicine Pulmonary Disease
DX: J45.50 Severe persistent asthma, uncomplicated (principal); S29.9XXA Unspecified injury of thorax, initial encounter; Z88.0 Allergy status to penicillin; Z91.012 Allergy to eggs
CPT/HCPCS: 71250; 78306; A9503

== ENCOUNTER → 2020-12-08 | Outpatient (CLI) | payer OTHER | END | disposition home or self-care (01) | LOC: LABWHC1 16:10 | PROVIDERS: ATTEND Emergency Medicine | DX: Z20.822 Contact with and (suspected) exposure to COVID-19 (principal) | CPT/HCPCS: U0003; C9803; U0005 ==

== ENCOUNTER 2021-01-21 18:45 | Inpatient (IN) | payer MEDICAID, OTHER ==
[2021-01-21 20:24] LABS: Amphetamine Screen,Urine Not Detected (NotDetected); Barbiturate Screen,Urine Not Detected (NotDetected); Benzodiazepines Screen,Urine Not Detected (NotDetected); Cocaine Screen,Urine Not Detected (NotDetected); Methadone Screen, Urine Not Detected (NotDetected); Opiate Screen,Urine Not Detected (NotDetected); Oxycodone Screen, Urine Not Detected (NotDetected); Phencyclidine Screen,Urine Not Detected (NotDetected); Tricyclic Antidepressant,Urine Not Detected (NotDetected); Urn Cannabinoid Scrn Not Detected (NotDetected)
--- NOTE | 2021-01-21 20:30 | ED ---
Psych HPI - General Source: patient Mode of arrival: ambulatory <Amando Pham - Last Filed: 01/21/21 22:36> <Akash Oseguera - Last Filed: 01/30/21 06:43> - General Chief Complaint: Psychiatric Symptoms Stated Complaint: EPS alfonzo, "I don't want my mom to find me" Time Seen by Provider: 01/21/21 19:29 - History of Present Illness Initial Comments: 30-year-old male presents to the emergency department for psychiatric evaluation. Patient reports she has been contemplated suicide over the last several weeks with a plan to jump in June. He states he does "not want his mother to find his body." States she has been talking to her therapist but it is not helping him. Does not take any psychiatric medications. Denies any homicidal thoughts. Has no further complaints. (Amando Pham) - Related Data Home Medications Medication Instructions Recorded Confirmed Aspirin 325 mg PO DAILY PRN 03/27/17 01/22/21 Albuterol Sulfate [Ventolin HFA] 2 puff INHALATION RT-QID PRN 04/08/20 01/22/21 Budesonide [Pulmicort] 0.25 mg INHALATION RT-BID PRN 01/21/21 01/22/21 Fluticasone Propionate [Flovent 2 puff INHALATION RT-BID 01/21/21 01/22/21 Hfa 110 mcg] Previous Rx's Medication Instructions Recorded Acetaminophen Tab [Tylenol] 650 mg PO Q4HR PRN tab 01/26/21 Mirtazapine [Remeron] 15 mg PO HS 30 Days tab 01/26/21 Ondansetron Odt [Zofran ODT] 4 mg PO BID PRN #6 tab 01/26/21 Sertraline [Zoloft] 25 mg PO DAILY 30 Days tab 01/26/21 Allergies Allergy/AdvReac Type Severity Reaction Status Date / Time egg Allergy Rash/Hives Verified 01/22/21 03:53 latex Allergy Rash/Hives Verified 01/22/21 03:53 milk Allergy Anaphylaxis Verified 01/24/21 14:50 Penicillins Allergy Unknown Verified 01/22/21 03:53 antibiotics Allergy Unknown Uncoded 01/22/21 03:53 antihistamines Allergy Unknown Uncoded 01/22/21 03:53 Review of Systems ROS Other: All systems not noted in ROS Statement are negative. <Amando Pham - Last Filed: 01/21/21 22:36> ROS Other: All systems not noted in ROS Statement are negative. <FiorianAkash - Last Filed: 01/30/21 06:43> ROS Statement: Those systems with pertinent positive or pertinent negative responses have been documented in the HPI. Past Medical History Past Medical History: Asthma, GERD/Reflux, Osteoarthritis (OA), Pneumonia Additional Past Medical History / Comment(s): eosinophilic gastroenteritis, osteoporosis, History of Any Multi-Drug Resistant Organisms: None Reported Past Surgical History: Unable to Obtain Additional Past Surgical History / Comment(s): surgery for undescended testicle, EGD, colonocopy Past Anesthesia/Blood Transfusion Reactions: Previous Problems w/ Anesthesia, Motion Sickness Additional Past Anesthesia/Blood Transfusion Reaction / Comment(s): "My heart stopped and I stopped breathing age 10 during a EGD/colonoscopy", was done at [facility] about 15 yrs ago. Past Psychological History: Anxiety, Depression, PTSD Smoking Status: Never smoker Past Alcohol Use History: None Reported Past Drug Use History: None Reported - Past Family History Mother Family Medical History: Cancer Father Family Medical History: Cancer <IvannaAmando da silva - Last Filed: 01/21/21 22:36> General Exam Limitations: no limitations General appearance: alert, in no apparent distress Head exam: Present: atraumatic, normocephalic, normal inspection Eye exam: Present: normal appearance, PERRL, EOMI Pupils: Present: normal accommodation ENT exam: Present: normal exam, normal oropharynx, mucous membranes moist, TM's normal bilaterally, normal external ear exam Neck exam: Present: normal inspection, full ROM. Absent: tenderness, lymphadenopathy Respiratory exam: Present: normal lung sounds bilaterally. Absent: respiratory distress, wheezes, rales, rhonchi, stridor, chest wall tenderness, accessory muscle use Cardiovascular Exam: Present: regular rate, normal rhythm, normal heart sounds. Absent: systolic murmur, diastolic murmur Extremities exam: Present: normal inspection, full ROM Back exam: Present: normal inspection, full ROM Neurological exam: Present: alert, oriented X3, CN II-XII intact, normal gait Psychiatric exam: Present: normal affect, other (emotional and crying during evaluation) Skin exam: Present: warm, dry, intact, normal color <Amando Pham - Last Filed: 01/21/21 22:36> Course Vital Signs 01/21/21 19:20 Temperature 97.8 F Pulse Rate 83 Respiratory 18 Rate Blood Pressure 123/83 O2 Sat by Pulse 96 Oximetry Medical Decision Making <Amando Pham - Last Filed: 01/21/21 22:36> - Lab Data Result diagrams: 01/22/21 07:19 01/22/21 07:19 <Akash Oseguera - Last Filed: 01/30/21 06:43> - Medical Decision Making 30-year-old male presents to the emergency department for psychiatric evaluation. Physical examination is unremarkable. Patient is very emotional when discussing the situation. Urine drug screen unremarkable. Suicidal thoughts with the plan. EPS evaluation pending At this time, patient care signed off to (Amando Pham) - Lab Data Lab Results 01/21/21 01/22/21 Range/Units 19:57 00:50 Urine Opiates Screen Not Detected (NotDetected) Ur Oxycodone Screen Not Detected (NotDetected) Urine Methadone Screen Not Detected (NotDetected) Ur Propoxyphene Screen Not Detected (NotDetected) Ur Barbiturates Screen Not Detected (NotDetected) U Tricyclic Antidepress Not Detected (NotDetected) Ur Phencyclidine Scrn Not Detected (NotDetected) Ur Amphetamines Screen Not Detected (NotDetected) U Methamphetamines Scrn Not Detected (NotDetected) U Benzodiazepines Scrn Not Detected (NotDetected) Urine Cocaine Screen Not Detected (NotDetected) U Marijuana (THC) Screen Not Detected (NotDetected) Coronavirus (PCR) Not Detected (Not Detectd) Disposition <Amando Pham - Last Filed: 01/21/21 22:36> <Akash Oseguera - Last Filed: 01/30/21 06:43> Clinical Impression: Mood disorder Disposition: ADMITTED IP TO THIS [facility] Condition: Stable
[2021-01-22] MEDS ORDERED: LORazepam 1 MG TAB PO PRN (03:47)
[2021-01-22] MEDS ORDERED: MAG HYDROX/AL HYDROX/SIMETH 30 ML CUP PO PRN (03:47)
[2021-01-22] MEDS ORDERED: MAGNESIUM HYDROXIDE 2,400 MG/10 ML CUP PO PRN (03:47)
[2021-01-22] MEDS ORDERED: ALBUTEROL INHALER 60 PUFF/8 GM INHALER (MHU) INHALATION PRN (03:49)
[2021-01-22] MEDS ORDERED: BUDESONIDE 0.25 MG/2 ML NEBU INHALATION PRN (03:49)
[2021-01-22] MEDS ORDERED: LORazepam 2 MG/ML INJ IM PRN (03:50)
[2021-01-22] MEDS ORDERED: HALOPERIDOL LACTATE 5 MG/ML 1 ML VIAL IM PRN (03:51)
[2021-01-22 08:12] LABS: Basophils % (A) 1 %; Eosinophils # (A) 0.1 k/uL (0-0.7); Eosinophils % (A) 2 %; HCT 44.5 % (39.0-53.0); HGB 14.9 gm/dL (13.0-17.5); Lymphocytes # (A) 1.7 k/uL (1.0-4.8); Lymphocytes % (A) 30 %; MCH 30.1 pg (25.0-35.0); MCHC 33.5 g/dL (31.0-37.0); MCV 89.7 fL (80.0-100.0); Monocytes # (A) 0.3 k/uL (0-1.0); Monocytes % (A) 6 %; Neutrophils # (A) 3.3 k/uL (1.3-7.7); Neutrophils % (A) 60 %; Platelet Count 291 k/uL (150-450); RBC 4.96 m/uL (4.30-5.90); WBC 5.5 k/uL (3.8-10.6)
[2021-01-22 08:30] LABS: ALT 31 U/L (4-49); AST 30 U/L (17-59); African American GFR (CKD) >90 (>60 ml/min/1.73 sqM); Albumin 4.2 g/dL (3.5-5.0); Alkaline Phosphatase 67 U/L (38-126); Anion Gap 6 mmol/L; Bilirubin,Unconjugated 0.6 mg/dL (0.0-1.1); Blood Urea Nitrogen 11 mg/dL (9-20); Calcium 9.5 mg/dL (8.4-10.2); Carbon Dioxide 30 mmol/L (22-30); Chloride 104 mmol/L (98-107); Glucose 88 mg/dL (74-99); Non-African American GFR(CKD) >90 (>60 ml/min/1.73 sqM); Potassium 4.4 mmol/L (3.5-5.1); Sodium 140 mmol/L (137-145); Total Bilirubin 0.5 mg/dL (0.2-1.3); Total Protein 6.3 g/dL (6.3-8.2)
[2021-01-22] MEDS: FLUTICASONE 110 MCG INHALER (MHU) INHALATION PRN ×2 (09:12→21:22)
[2021-01-22] MEDS: ACETAMINOPHEN TAB 325 MG TAB PO PRN (12:18)
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
--- NOTE | 2021-01-22 16:27 | P.CONS ---
History of Present Illness - Reason for Consult Asthma, medical clearance - History of Present Illness Patient is an 30-year-old male admitted for major depression with suicidal thoughts does have history of postherpetic stress disorder. Patient does have history of bronchial asthma not a smoker. Patient is not in asthma exacerbation at this time. Review of Systems REVIEW OF SYSTEMS: CONSTITUTIONAL: No fever, no malaise, no fatigue. HEENT: No recent visual problems or hearing problems. Denied any sore throat. CARDIOVASCULAR: No chest pain, orthopnea, PND, no palpitations, no syncope. PULMONARY: No shortness of breath, no cough, no hemoptysis. GASTROINTESTINAL: No diarrhea, no nausea, no vomiting, no abdominal pain. NEUROLOGICAL: No headaches, no weakness, no numbness. HEMATOLOGICAL: Denies any bleeding or petechiae. GENITOURINARY: Denies any burning micturition, frequency, or urgency. MUSCULOSKELETAL/RHEUMATOLOGICAL: Denies any joint pain, swelling, or any muscle pain. ENDOCRINE: Denies any polyuria or polydipsia. The rest of the 14-point review of systems is negative. Past Medical History Past Medical History: Asthma, GERD/Reflux, Osteoarthritis (OA), Pneumonia Additional Past Medical History / Comment(s): eosinophilic gastroenteritis, osteoporosis, History of Any Multi-Drug Resistant Organisms: None Reported Past Surgical History: Unable to Obtain Additional Past Surgical History / Comment(s): surgery for undescended testicle, EGD, colonocopy Past Anesthesia/Blood Transfusion Reactions: Previous Problems w/ Anesthesia, Motion Sickness Additional Past Anesthesia/Blood Transfusion Reaction / Comm: "My heart stopped and I stopped breathing age 10 during a EGD/colonoscopy", was done at [facility] about 15 yrs ago. Past Psychological History: Anxiety, Depression, PTSD Smoking Status: Never smoker Past Alcohol Use History: None Reported Past Drug Use History: None Reported - Past Family History Mother Family Medical History: Cancer Father Family Medical History: Cancer Medications and Allergies Home Medications Medication Instructions Recorded Confirmed Type Albuterol Nebulized [Ventolin 2.5 mg INHALATION RT-Q6H PRN 03/27/17 01/22/21 History Nebulized] Aspirin 325 mg PO DAILY PRN 03/27/17 01/22/21 History Albuterol Sulfate [Ventolin HFA] 2 puff INHALATION RT-QID PRN 04/08/20 01/22/21 History Budesonide [Pulmicort] 0.25 mg INHALATION RT-BID PRN 01/21/21 01/22/21 History Fluticasone Propionate [Flovent 2 puff INHALATION RT-BID 01/21/21 01/22/21 History Hfa 110 mcg] Allergies Allergy/AdvReac Type Severity Reaction Status Date / Time egg Allergy Rash/Hives Verified 01/22/21 03:53 latex Allergy Rash/Hives Verified 01/22/21 03:53 Penicillins Allergy Unknown Verified 01/22/21 03:53 antibiotics Allergy Unknown Uncoded 01/22/21 03:53 antihistamines Allergy Unknown Uncoded 01/22/21 03:53 Physical Exam Vitals: Vital Signs Temp Pulse Pulse Resp BP BP Pulse Ox 01/22/21 03:13 97.8 F 78 16 114/72 96 01/22/21 02:44 98.2 F 74 18 129/79 97 01/21/21 19:20 97.8 F 83 18 123/83 96 Intake and Output 01/22/21 01/22/21 01/22/21 06:59 14:59 22:59 Other: Weight 60.895 kg PHYSICAL EXAMINATION: GENERAL: The patient is alert and oriented x3, not in any acute distress. Well developed, well nourished. HEENT: Pupils are round and equally reacting to light. EOMI. No scleral icterus. No conjunctival pallor. Normocephalic, atraumatic. No pharyngeal erythema. No thyromegaly. CARDIOVASCULAR: S1 and S2 present. No murmurs, rubs, or gallops. PULMONARY: Chest is clear to auscultation, no wheezing or crackles. ABDOMEN: Soft, nontender, nondistended, normoactive bowel sounds. No palpable organomegaly. MUSCULOSKELETAL: No joint swelling or deformity. EXTREMITIES: No cyanosis, clubbing, or pedal edema. NEUROLOGICAL: Gross neurological examination did not reveal any focal deficits. SKIN: No rashes. Results CBC & Chem 7: 01/22/21 07:19 01/22/21 07:19 Assessment and Plan Plan: -Mild intermittent asthma without any acute exacerbation can you to albuterol as needed -Major depression post traumatic stress disorder management as per primary service
[2021-01-22 18:11] LABS: Hemoglobin A1C 4.7 % (4.0-6.0)
[2021-01-23] MEDS ORDERED: SERTRALINE 100 MG TAB PO SCH (09:00)
[2021-01-23] MEDS: ARIPiprazole 2 MG TAB PO SCH (09:00)
[2021-01-23] MEDS: FLUTICASONE 110 MCG INHALER (MHU) INHALATION PRN (09:04)
[2021-01-23] MEDS ORDERED: ONDANSETRON 4 MG/2 ML VIAL IM STA (11:17)
[2021-01-23 13:12] VITALS: RESP 16
--- NOTE | 2021-01-23 13:29 | P.PN ---
Progress Note - Text Progress Note Date: 01/23/21 Interval History: Patient was seen in his room and was directable and agreeable to speak with staff writer. This patient continues to show neurovegetative symptoms of depression. He is isolative withdrawn and preoccupied.. At this time patient denies any suicidal or homical ideations, intent or plan. Patient denies any auditory, visual hallucinations and denies any paranoia or delusions. Patient denies any side effects from the medications and has been compliant with meds. Mental Status Exam: General Appearance: Patient appears to be stated age . Behavior: Patient is calm without any agitated behavior. Speech: Speech is low in volume, monotonous and monosyllable Mood/Affect: Mood is depressed and affect is constricted Suicidality/Homicidality: Patient denies having any suicidal or homicidal ideation intent or plan. Perceptions: Patient denies any visual hallucinations and denies any auditory hallucinations Though content/process: There is no evidence of any delusional thought content and thought process is linear and goal-directed. Memory and concentration: His memory is intact and concentration is poor Judgment and insight: Patient has poor insight and judgment is impaired Assessment This patient was admitted to Hospital because of depression and mood swings and continues to maintain status quo Plan: -Patient continues to meet criteria for inpatient psychiatric admission for symptom stabilization and safety. -Medications: Continue medication as before -When necessary Ativan and Haldol for agitation/aggression. -SW on board for discharge planning. Encouraged the patient to participate in milieu. [
[2021-01-23] MEDS: ONDANSETRON ODT 4 MG TAB PO PRN (16:56)
[2021-01-23] MEDS: ACETAMINOPHEN TAB 325 MG TAB PO PRN (18:18)
[2021-01-23 18:47] LABS: Appearance,Urine Clear (Clear); Bilirubin,Urine Negative (Negative); Blood,Urine Negative (Negative); Color,Urine Yellow; Glucose,Urine (UA) Negative (Negative); Ketones,Urine Negative (Negative); Leukocyte Esterase,Urine Negative (Negative); Nitrite,Urine Negative (Negative); Protein,Urine Trace (Negative)
[2021-01-24] MEDS: FLUTICASONE 110 MCG INHALER (MHU) INHALATION PRN ×2 (08:25→20:36)
[2021-01-24] MEDS: ARIPiprazole 2 MG TAB PO SCH (08:27)
--- NOTE | 2021-01-24 10:43 | P.PN ---
Progress Note - Text Progress Note Date: 01/24/21 Interval History: Patient was seen sitting in on group this morning and was directable and agree able to speak with communications writer in the office. Patient appears to be fairly timid and soft spoken with a communications writer. He appears to be younger than stated age. He claims that he was having a lot of stress and was feeling overwhelmed at home with his living situation and also from work. He claimed that he was having severe suicidal thoughts before coming into the hospital. He states that he took the Abilify yesterday and was feeling nauseous afterwards and refused to take it this morning. He claims that he is willing to try another medication to help him with his depression and anxiety. He states that his sleep has been "on and off" and claims that he has tried several other medications for sleep however has not done well with them. He states that he is still feeling fairly depressed and anxious. At this time patient denies any current suicidal or homical ideations, intent or plan. Patient denies any auditory, visual hallucinations and denies any paranoia or delusions. Mental Status Exam: General Appearance: Patient appears to be younger than stated age is alert, directable, and attempts to be cooperative. Fair hygiene and grooming Behavior: Patient is calmly seated without any agitated behavior. Timid Speech: Patient's speech is fluent and nonpressured. Soft spoken Mood/Affect: Mood is depressed and anxious, affect is congruent and constricted. Suicidality/Homicidality: Patient denies having any suicidal or homicidal ideation intent or plan. Perceptions: Patient denies any visual hallucinations and denies any auditory hallucinations Though content/process: There is no evidence of any delusional thought content and thought process is linear and goal-directed. Memory and concentration: AOX3, grossly intact for the purposes of this session Judgment and insight: Fair Assessment Major depression recurrent severe without psychotic features Posttraumatic stress disorder Bronchial Asthma Plan: -Patient continues to meet criteria for inpatient psychiatric admission for symptom stabilization and safety. Patient has signed adult voluntary form and medication consent and was placed in patient's chart. -Medications: Discontinued Abilify due to side effect of nausea and vomiting. Patient was agreeable to start Zoloft today 25 mg daily for mood/anxiety. Started Remeron 15 mg daily at bedtime for insomnia/mood/appetite. -When necessary Ativan and Haldol for agitation/aggression. -NRT - not needed as patient does not smoke -SW on board for discharge planning. Encouraged the patient to participate in milieu. Patient will likely be going back to his parents house upon discharge. Likely discharge in 2-3 days.
[2021-01-24] MEDS: SERTRALINE 25 MG TAB PO SCH (12:02)
[2021-01-24] MEDS: MIRTAZAPINE 15 MG TAB PO SCH (20:35)
[2021-01-25] MEDS: SERTRALINE 25 MG TAB PO SCH (08:29)
[2021-01-25] MEDS: ONDANSETRON ODT 4 MG TAB PO PRN ×2 (08:29→20:50)
--- NOTE | 2021-01-25 09:36 | P.PN ---
Progress Note - Text Progress Note Date: 01/25/21 Interval History: Patient was seen lying in his bed this morning and was directable and agreeable to speak with database report writer in the office. Patient appears to be more cooperative today and more talkative. He spoke about speaking to his mother and claims that he misses her and also misses his cats. He claims that he is looking forward to discharge when he is ready to go home. He claims that his mood and anxiety even gradually improving on the current medications. He states that he felt mildly anxious last night and also was feeling nauseous as well and had to take a Zofran tablet which helped. He appears to be younger than stated age. He states that he is sleeping better at night time approximately 6-7 hours. At this time patient denies any current suicidal or homical ideations, intent or plan. Patient denies any auditory, visual hallucinations and denies any paranoia or delusions. Mental Status Exam: General Appearance: Patient appears to be younger than stated age is alert, directable, and attempts to be cooperative. Fair hygiene and grooming Behavior: Patient is calmly seated without any agitated behavior. Timid Speech: Patient's speech is fluent and nonpressured. Mood/Affect: Mood is depressed and anxious, improving mildly, affect is congruent Suicidality/Homicidality: Patient denies having any suicidal or homicidal ideation intent or plan. Perceptions: Patient denies any visual hallucinations and denies any auditory hallucinations Though content/process: There is no evidence of any delusional thought content and thought process is linear and goal-directed. Memory and concentration: AOX3, grossly intact for the purposes of this session Judgment and insight: Improving mildly Assessment Major depression recurrent severe without psychotic features Posttraumatic stress disorder Bronchial Asthma Plan: -Patient continues to meet criteria for inpatient psychiatric admission for symptom stabilization and safety. Patient has signed adult voluntary form and medication consent and was placed in patient's chart. -Medications: Continue with Zoloft 25 mg daily for mood/anxiety. Remeron 15 mg daily at bedtime for insomnia/mood/appetite. Zofran when necessary for nausea/vomiting. We'll continue on same medication doses to monitor if patient's nausea is due to medication side effect or another condition -When necessary Ativan and Haldol for agitation/aggression. -NRT - not needed as patient does not smoke -SW on board for discharge planning. Encouraged the patient to participate in milieu. Patient will likely be going back to his parents house upon discharge. Likely discharge tomorrow
[2021-01-25] MEDS: ACETAMINOPHEN TAB 325 MG TAB PO PRN (11:25)
[2021-01-25] MEDS: MIRTAZAPINE 15 MG TAB PO SCH (20:50)
[2021-01-25] MEDS: FLUTICASONE 110 MCG INHALER (MHU) INHALATION PRN (20:51)
[2021-01-26 07:05] VITALS: BP 97/54; PULSE 74; TEMP 97.3
[2021-01-26] MEDS: SERTRALINE 25 MG TAB PO SCH (08:32)
[2021-01-26] MEDS: FLUTICASONE 110 MCG INHALER (MHU) INHALATION PRN (08:32)
--- NOTE | 2021-01-26 10:26 | P.DS ---
Providers Date of admission: 01/22/21 02:17 Expected date of discharge: 01/26/21 Attending physician: Prince Ko MD Consults: 01/22/21 03:47 Consult Physician Routine Consulting Provider: Heena Haque Consult Reason/Comments: For H & P for Medical Follow Up Do you want consulting provider notified?: Yes Primary care physician: Breanna Mao - Discharge Diagnosis(es) (1) Major depressive disorder, recurrent severe without psychotic features Current Visit: Yes Status: Acute Priority: High (2) Post traumatic stress disorder (PTSD) Current Visit: Yes Status: Acute Priority: Medium (3) Asthma Current Visit: Yes Status: Acute Priority: Low Hospital Course: Admission HPI: Admission note was completed by Dr. Corbett "Patient stated he did not want to hurt himself and he was severely depressed so his mother brought him to the hospital.Patient stated that sometimes he has mood swings where he becomes angry and agitated. Generally he is very depressed and things are getting worse for him. He does not sleep well and has very poor energy level. He stated this thing has happened before and he has been seeing a counselor at [facility]. He stated he was never in a psychiatric hospital before." Hospital course: Upon admission to the unit patient was initially depressed. Patient was however directable and agreeable to commence treatment and signed adult voluntary form. Patient got along well with other patients on the unit and followed unit prot ocol. Patient was compliant with the medications and denied any side effects throughout hospital course. Patient was started on Zoloft 25 mg daily for mood/anxiety. Patient was also started on Remeron 15 mg daily at bedtime for insomnia/mood/appetite. Patient was initially started on Abilify however due to nausea and vomiting, this medication was discontinued and patient was given Zofran as needed which alleviated his symptoms. Patient spoke of his stressors and engaged in therapy both group and individual. Patient was also seen by medical team for history and physical exam. Throughout the course of the hospitalization patient gradually improved with regards to mood, anxiety, sleep and became more future oriented with improved insight and judgment. On the day of discharge patient denied any suicidal or homicidal ideations intent or plan denied any auditory or visual hallucinations. Patient endorsed wanting to live for his future and family. The patient denied any access to guns or weapons. Patient denied any paranoia and did not endorse any delusions. Patient does not have a significant history of substance abuse however was counseled on abstaining from all substances including alcohol and marijuana. Patient was also counseled on the medications and need for regular compliance and was encouraged to follow-up with their outpatient appointment for mental health and also for primary care. Prior to discharge a family meeting will be arranged by oncology social worker to answer any questions and ensure safety upon discharge. Mental status exam: General Appearance: Patient appears to be short in stature, younger than stated age is alert, pleasant, and cooperative. Patient is in no acute distress and has improved hygiene and grooming Behavior: Patient is calmly seated without any agitated behavior. Speech: Patient's speech is fluent and nonpressured. Mood/Affect: Patient reports their mood is "better", affect is congruent and euthymic. Suicidality/Homicidality: Patient denies having any suicidal or homicidal ideation intent or plan. Perceptions: Patient denies any auditory or visual hallucinations. Though content/process: There is no evidence of any delusional thought content and thought process is linear and goal-directed. more future oriented Memory and concentration: AOX3, grossly intact for the purposes of this session. Can spell "WORLD" backwards correctly. Judgment and insight: improved with guarded prognosis Impression: Major depressive disorder, recurrent, severe without psychotic features PTSD Bronchial asthma Plan: -Continue with discharge today as patient has improved and stabilized psychiatrically and is not currently an imminent threat to himself and/or others. -Continue medications: Zoloft 25 mg daily for mood/anxiety, Remeron 15 mg daily at bedtime for insomnia/mood/appetite. Patient will be given a short supply of zofran prn for nausea -Patient was counseled on the need for medication compliance and appropriate follow-up at mental health and also primary care for medical issues. Patient verbalized understanding and agreed. -Social work to arrange for and conduct family meeting to ensure safety upon discharge and answer any questions/concerns. Social work also to arrange for patients follow up appointments with [facility] for psychiatric care along with follow up with primary care provider. Patient was encouraged to enroll in individual therapy. -Patient counseled on abstaining from recreational drugs and marijuana and alcohol. Was informed/educated on the adverse effects on their physical and mental health. Patient verbally agreed and understood. -Patient was instructed to return to the hospital or seek immediate medical care if their psychiatric or medical symptoms do worsen or reoccur. Allergies Allergy/AdvReac Type Severity Reaction Status Date / Time egg Allergy Rash/Hives Verified 01/22/21 03:53 latex Allergy Rash/Hives Verified 01/22/21 03:53 milk Allergy Anaphylaxis Verified 01/24/21 14:50 Penicillins Allergy Unknown Verified 01/22/21 03:53 antibiotics Allergy Unknown Uncoded 01/22/21 03:53 antihistamines Allergy Unknown Uncoded 01/22/21 03:53 Laboratory Results WBC 5.5 k/uL (3.8-10.6) 01/22/21 07:19 RBC 4.96 m/uL (4.30-5.90) 01/22/21 07:19 Hgb 14.9 gm/dL (13.0-17.5) 01/22/21 07:19 Hct 44.5 % (39.0-53.0) 01/22/21 07:19 MCV 89.7 fL (80.0-100.0) 01/22/21 07:19 MCH 30.1 pg (25.0-35.0) 01/22/21 07:19 MCHC 33.5 g/dL (31.0-37.0) 01/22/21 07:19 RDW 13.0 % (11.5-15.5) 01/22/21 07:19 Plt Count 291 k/uL (150-450) 01/22/21 07:19 MPV 7.0 01/22/21 07:19 Neutrophils % 60 % 01/22/21 07:19 Lymphocytes % 30 % 01/22/21 07:19 Monocytes % 6 % 01/22/21 07:19 Eosinophils % 2 % 01/22/21 07:19 Basophils % 1 % 01/22/21 07:19 Neutrophils # 3.3 k/uL (1.3-7.7) 01/22/21 07:19 Lymphocytes # 1.7 k/uL (1.0-4.8) 01/22/21 07:19 Monocytes # 0.3 k/uL (0-1.0) 01/22/21 07:19 Eosinophils # 0.1 k/uL (0-0.7) 01/22/21 07:19 Basophils # 0.0 k/uL (0-0.2) 01/22/21 07:19 Sodium 140 mmol/L (137-145) 01/22/21 07:19 Potassium 4.4 mmol/L (3.5-5.1) 01/22/21 07:19 Chloride 104 mmol/L (98-107) 01/22/21 07:19 Carbon Dioxide 30 mmol/L (22-30) 01/22/21 07:19 Anion Gap 6 mmol/L 01/22/21 07:19 BUN 11 mg/dL (9-20) 01/22/21 07:19 Creatinine 1.00 mg/dL (0.66-1.25) 01/22/21 07:19 Est GFR (CKD-EPI)AfAm >90 (>60 ml/min/1.73 sqM) 01/22/21 07:19 Est GFR (CKD-EPI)NonAf >90 (>60 ml/min/1.73 sqM) 01/22/21 07:19 Glucose 88 mg/dL (74-99) 01/22/21 07:[address] Glu mg/dL 88 01/22/21 07:19 Hemoglobin A1c 4.7 % (4.0-6.0) 01/22/21 07:19 Calcium 9.5 mg/dL (8.4-10.2) 01/22/21 07:19 Total Bilirubin 0.5 mg/dL (0.2-1.3) 01/22/21 07:19 Conjugated Bilirubin 0.0 mg/dL (0.0-0.3) 01/22/21 07:19 Unconjugated Bilirubin 0.6 mg/dL (0.0-1.1) 01/22/21 07:19 Delta Bilirubin 0.0 mg/dL (0.0-0.2) 01/22/21 07:19 AST 30 U/L (17-59) 01/22/21 07:19 ALT 31 U/L (4-49) 01/22/21 07:19 Alkaline Phosphatase 67 U/L (38-126) 01/22/21 07:19 Total Protein 6.3 g/dL (6.3-8.2) 01/22/21 07:19 Albumin 4.2 g/dL (3.5-5.0) 01/22/21 07:19 TSH 0.697 mIU/L (0.465-4.680) 01/22/21 07:19 Urine Color Yellow 01/23/21 18:15 Urine Appearance Clear (Clear) 01/23/21 18:15 Urine pH 7.0 (5.0-8.0) 01/23/21 18:15 Ur Specific [place] 1.030 (1.001-1.035) 01/23/21 18:15 Urine Protein Trace (Negative) H 01/23/21 18:15 Urine Glucose (UA) Negative (Negative) 01/23/21 18:15 Urine Ketones Negative (Negative) 01/23/21 18:15 Urine Blood Negative (Negative) 01/23/21 18:15 Urine Nitrite Negative (Negative) 01/23/21 18:15 Urine Bilirubin Negative (Negative) 01/23/21 18:15 Urine Urobilinogen 2.0 mg/dL (<2.0) 01/23/21 18:15 Ur Leukocyte Esterase Negative (Negative) 01/23/21 18:15 Urine Opiates Screen Not Detected (NotDetected) 01/21/21 19:57 Ur Oxycodone Screen Not Detected (NotDetected) 01/21/21 19:57 Urine Methadone Screen Not Detected (NotDetected) 01/21/21 19:57 Ur Propoxyphene Screen Not Detected (NotDetected) 01/21/21 19:57 Ur Barbiturates Screen Not Detected (NotDetected) 01/21/21 19:57 U Tricyclic Antidepress Not Detected (NotDetected) 01/21/21 19:57 Ur Phencyclidine Scrn Not Detected (NotDetected) 01/21/21 19:57 Ur Amphetamines Screen Not Detected (NotDetected) 01/21/21 19:57 U Methamphetamines Scrn Not Detected (NotDetected) 01/21/21 19:57 U Benzodiazepines Scrn Not Detected (NotDetected) 01/21/21 19:57 Urine Cocaine Screen Not Detected (NotDetected) 01/21/21 19:57 U Marijuana (THC) Screen Not Detected (NotDetected) 01/21/21 19:57 Coronavirus (PCR) Not Detected (Not Detectd) 01/22/21 00:50 Vital Signs Temp 97.3 F L 01/26/21 06:45 Pulse 74 01/26/21 06:45 Resp 16 01/26/21 06:45 BP 97/54 01/26/21 06:45 Pulse Ox 97 01/23/21 13:11 Patient Condition at Discharge: Stable Plan - Discharge Summary New Discharge Prescriptions: New Mirtazapine [Remeron] 15 mg PO HS 30 Days tab Ondansetron Odt [Zofran ODT] 4 mg PO BID PRN #6 tab PRN Reason: Nausea And Vomiting Sertraline [Zoloft] 25 mg PO DAILY 30 Days tab Acetaminophen Tab [Tylenol] 650 mg PO Q4HR PRN tab PRN Reason: Pain/Discomfort Continue Aspirin 325 mg PO DAILY PRN PRN Reason: Fever And/ Or Pain Albuterol Sulfate [Ventolin HFA] 2 puff INHALATION RT-QID PRN PRN Reason: Shortness Of Breath Budesonide [Pulmicort] 0.25 mg INHALATION RT-BID PRN PRN Reason: Shortness Of Breath Fluticasone Propionate [Flovent Hfa 110 mcg] 2 puff INHALATION RT-BID Discontinued Albuterol Nebulized [Ventolin Nebulized] 2.5 mg INHALATION RT-Q6H PRN PRN Reason: Shortness Of Breath Discharge Medication List Aspirin 325 mg PO DAILY PRN 03/27/17 [History] Albuterol Sulfate [Ventolin HFA] 2 puff INHALATION RT-QID PRN 04/08/20 [History] Budesonide [Pulmicort] 0.25 mg INHALATION RT-BID PRN 01/21/21 [History] Fluticasone Propionate [Flovent Hfa 110 mcg] 2 puff INHALATION RT-BID 01/21/21 [History] Acetaminophen Tab [Tylenol] 650 mg PO Q4HR PRN tab 01/26/21 [Rx] Mirtazapine [Remeron] 15 mg PO HS 30 Days tab 01/26/21 [Rx] Ondansetron Odt [Zofran ODT] 4 mg PO BID PRN #6 tab 01/26/21 [Rx] Sertraline [Zoloft] 25 mg PO DAILY 30 Days tab 01/26/21 [Rx] Follow up Appointment(s)/Referral(s): [facility] [Outside] - 01/27/21 12:30 pm (Appointment 01/27/21 at 12:30 pm with Iza at [facility].) Breanna Mao MD [Primary Care Provider] - 1-2 days Activity/Diet/Wound Care/Special Instructions: Activity and diet as tolerated. Avoid the use of street drugs and alcohol. Take all medications as prescribed. When you are in need of refills on your medications please contact your medical provider and/or outpatient psychiatrist to have this done. Please go to scheduled outpatient appointment for aftercare treatment. If symptoms return or become worse, call the crisis line at and/or go to the nearest emergency room for evaluation. Discharge Disposition: HOME SELF-CARE
== END 2021-01-26 13:26 | disposition home or self-care (01) | DRG 885 ==
LOC: EC 18:45 → 3MHU 01-22 02:17
PROVIDERS: ADMIT Psychiatry & Neurology Psychiatry; ATTEND Psychiatry & Neurology Psychiatry
DX: F33.2 Major depressive disorder, recurrent severe without psychotic features (principal); R45.851 Suicidal ideations; F43.10 Post-traumatic stress disorder, unspecified; G47.00 Insomnia, unspecified; J45.909 Unspecified asthma, uncomplicated; Z62.810 Personal history of physical and sexual abuse in childhood; Z79.51 Long term (current) use of inhaled steroids; Z79.82 Long term (current) use of aspirin; Z79.899 Other long term (current) drug therapy; Z82.5 Family history of asthma and other chronic lower respiratory diseases; Z88.0 Allergy status to penicillin; Z91.040 Latex allergy status; Z20.822 Contact with and (suspected) exposure to COVID-19
CPT/HCPCS: 80053; 80306; 81003; 82075; 82248; 83036; 84443; 85025; 87635; 99285

== ENCOUNTER 2021-07-24 00:34 | Emergency (ER) | payer OTHER ==
[2021-07-24] MEDS ORDERED: ONDANSETRON 4 MG/2 ML VIAL IVP STA (02:39)
[2021-07-24] MEDS ORDERED: SODIUM CHLORIDE 0.9% 1,000 ML IV STA (02:39)
[2021-07-24] MEDS ORDERED: MAG HYDROX/AL HYDROX/SIMETH 30 ML, HYOSCYAMINE ELIXIR 10 ML PO STA ×2 (02:40)
[2021-07-24] MEDS ORDERED: PANTOPRAZOLE 40 MG/10 ML VIAL IVP STA (02:40)
--- NOTE | 2021-07-24 02:41 | ED ---
Chest Pain HPI - General Chief Complaint: Chest Pain Stated Complaint: Chest Pain Time Seen by Provider: 07/24/21 02:26 Source: patient, RN notes reviewed, old records reviewed Mode of arrival: ambulatory Limitations: no limitations - History of Present Illness Initial Comments: This is a 31-year-old male to the emergency room today. Patient resents today for evaluation in regards to significant chest pain epigastric chest pain chest pain radiating to back. No current shortness of breath with sudden onset of pain began tonight. No recent travel history or sick contacts no similar complaints as pain was significantly worse a laying down and significant nausea MD Complaint: chest pain, other (Nausea and vomiting) -: hour(s) Onset: during rest, awoke with symptoms Pain Location: substernal, epigastric Pain Radiation: back Severity: severe Severity scale (1-10): 8 Quality: tightness, sharp Consistency: constant, intermittent Worsens With: supine Anginal Symptoms: nausea, vomiting Other Symptoms: acid taste in mouth, palpitations Treatments Prior to Arrival: none - Related Data Home Medications Medication Instructions Recorded Confirmed Aspirin 325 mg PO DAILY PRN 03/27/17 01/22/21 Albuterol Sulfate [Ventolin HFA] 2 puff INHALATION RT-QID PRN 04/08/20 01/22/21 Budesonide [Pulmicort] 0.25 mg INHALATION RT-BID PRN 01/21/21 01/22/21 Fluticasone Propionate [Flovent 2 puff INHALATION RT-BID 01/21/21 01/22/21 Hfa 110 mcg] Previous Rx's Medication Instructions Recorded Acetaminophen Tab [Tylenol] 650 mg PO Q4HR PRN tab 01/26/21 Mirtazapine [Remeron] 15 mg PO HS 30 Days tab 01/26/21 Ondansetron Odt [Zofran ODT] 4 mg PO BID PRN #6 tab 01/26/21 Sertraline [Zoloft] 25 mg PO DAILY 30 Days tab 01/26/21 Allergies Allergy/AdvReac Type Severity Reaction Status Date / Time egg Allergy Rash/Hives Verified 07/24/21 00:48 latex Allergy Rash/Hives Verified 07/24/21 00:48 milk Allergy Anaphylaxis Verified 07/24/21 00:48 Penicillins Allergy Unknown Verified 07/24/21 00:48 antibiotics Allergy Unknown Uncoded 07/24/21 00:48 antihistamines Allergy Unknown Uncoded 07/24/21 00:48 Review of Systems ROS Statement: Those systems with pertinent positive or pertinent negative responses have been documented in the HPI. ROS Other: All systems not noted in ROS Statement are negative. EKG Findings - EKG Comments: EKG Findings:: EKG shows sinus rhythm 81 TX 154 QRS 86 QTc 432 Past Medical History Past Medical History: Asthma, GERD/Reflux, Osteoarthritis (OA), Pneumonia Additional Past Medical History / Comment(s): eosinophilic gastroenteritis, osteoporosis, History of Any Multi-Drug Resistant Organisms: MRSA Date of last positivie culture/infection: 03/02/21 MDRO Source:: [place] Past Surgical History: Unable to Obtain Additional Past Surgical History / Comment(s): surgery for undescended testicle, EGD, colonocopy Past Anesthesia/Blood Transfusion Reactions: Previous Problems w/ Anesthesia, Motion Sickness Additional Past Anesthesia/Blood Transfusion Reaction / Comment(s): "My heart stopped and I stopped breathing age 10 during a EGD/colonoscopy", was done at [facility] about 15 yrs ago. Past Psychological History: Anxiety, Depression, PTSD Smoking Status: Never smoker Past Alcohol Use History: None Reported Past Drug Use History: None Reported - Past Family History Mother Family Medical History: Cancer Father Family Medical History: Cancer General Exam Limitations: no limitations Course Vital Signs 07/24/21 07/24/21 07/24/21 00:44 02:55 05:26 Temperature 98.2 F 97.6 F Pulse Rate 93 85 85 Respiratory 24 18 18 Rate Blood Pressure 119/64 119/85 107/81 O2 Sat by Pulse 97 98 98 Oximetry Disposition Clinical Impression: Chest pain, Atypical chest pain, Asthma, Abdominal pain, Gastritis Disposition: HOME SELF-CARE Condition: Good Instructions (If sedation given, give patient instructions): Chest Pain (ED), Abdominal Pain (ED) Is patient prescribed a controlled substance at d/c from ED?: No Referrals: Breanna Mao MD [Primary Care Provider] - 1-2 days
[2021-07-24 02:56] VITALS: PULSE 85; RESP 18
[2021-07-24 03:15] LABS: Basophils # (A) 0.1 k/uL (0-0.2); Basophils % (A) 1 %; Eosinophils # (A) 0.3 k/uL (0-0.7); Eosinophils % (A) 4 %; HCT 44.6 % (39.0-53.0); HGB 15.4 gm/dL (13.0-17.5); Lymphocytes # (A) 2.5 k/uL (1.0-4.8); Lymphocytes % (A) 32 %; MCH 30.7 pg (25.0-35.0); MCHC 34.6 g/dL (31.0-37.0); MCV 88.9 fL (80.0-100.0); Mean Platelet Volume 7.3; Monocytes # (A) 0.4 k/uL (0-1.0); Monocytes % (A) 5 %; Neutrophils # (A) 4.4 k/uL (1.3-7.7); Neutrophils % (A) 56 %; Platelet Count 281 k/uL (150-450); RBC 5.02 m/uL (4.30-5.90); RDW 13.7 % (11.5-15.5); WBC 7.7 k/uL (3.8-10.6)
[2021-07-24 03:30] LABS: ALT 26 U/L (4-49); AST 26 U/L (17-59); African American GFR (CKD) >90 (>60 ml/min/1.73 sqM); Albumin 4.1 g/dL (3.5-5.0); Alkaline Phosphatase 74 U/L (38-126); Anion Gap 10 mmol/L; Blood Urea Nitrogen 12 mg/dL (9-20); Carbon Dioxide 20 mmol/L (22-30); Chloride 106 mmol/L (98-107); Glucose 103 mg/dL (74-99); Lipase 77 U/L (23-300); Magnesium 1.9 mg/dL (1.6-2.3); Non-African American GFR(CKD) >90 (>60 ml/min/1.73 sqM); Sodium 136 mmol/L (137-145); Total Bilirubin 0.3 mg/dL (0.2-1.3); Total Protein 6.7 g/dL (6.3-8.2)
--- NOTE | 2021-07-24 04:31 | CT ---
EXAMINATION TYPE: CT angio chest DATE OF EXAM: 07/24/2021 COMPARISON: None HISTORY: pE CT DLP: 240 mGycm Automated exposure control for dose reduction was used. CONTRAST: Performed with IV Contrast, patient injected with 100 mL of Isovue 370. There are 3-D post processed images. The lungs are clear of consolidation. There is no pleural effusion. Heart size is normal. There is no pericardial effusion. There is no mediastinal adenopathy. There are no hilar masses. Thoracic aorta is intact. There is no aneurysm or dissection. There is normal contrast opacification of the pulmonary arteries. There are no filling defects. The thoracic spine is intact. Sternum is intact. IMPRESSION: Negative exam. No evidence of pulmonary embolism.
--- NOTE | 2021-07-24 04:40 | CT ---
EXAMINATION TYPE: CT abdomen pelvis w con DATE OF EXAM: 07/24/2021 COMPARISON: 04/08/2020 HISTORY: pain CT DLP: 694.4 mGycm Automated exposure control for dose reduction was used. CONTRAST: Performed with IV Contrast, patient injected with 100 mL of Isovue 370. Images obtained from the diaphragm to the floor the pelvis with IV contrast. Lung bases are clear. There is no pleural effusion. Heart size is normal. Liver spleen stomach pancre as gallbladder appear intact. The bile ducts are not dilated. There is no adrenal mass. Kidneys show satisfactory contrast opacification. There is no hydronephrosi s. Delayed images show normal renal excretion. There is no retroperitoneal adenopathy. Appendix is po sterior and appears normal. Ureters are not dilated. Bladder distends smoothly. There is no inguinal hernia. There is no free fluid in the pelvis. There is no mesenteric edema. There is no ascites or free air. There is no bowel obstruction. Lumbar vertebra have normal alignment. There is no compression fracture. Posterior elements are intac t. Bony pelvis is intact. Hip joints are intact. There is 8 mm cyst in the right lobe of the liver. IMPRESSION: Negative CT scan abdomen and pelvis. No adverse change compared to old exam.
[2021-07-24 05:29] VITALS: BP 107/81; TEMP 97.6
== END 2021-07-24 05:29 | disposition home or self-care (01) ==
LOC: EC 00:34
DX: R07.89 Other chest pain (principal); J45.909 Unspecified asthma, uncomplicated; K29.70 Gastritis, unspecified, without bleeding; M19.90 Unspecified osteoarthritis, unspecified site; F43.10 Post-traumatic stress disorder, unspecified; F41.9 Anxiety disorder, unspecified; F32.A Depression, unspecified; Z87.39 Personal history of other diseases of the musculoskeletal system and connective tissue; Z79.82 Long term (current) use of aspirin; Z79.51 Long term (current) use of inhaled steroids
CPT/HCPCS: 36415; 93005; 85379; 83880; 80053; 83690; 83735; 84484; 85025; 87635; 71275; 74177; 99285; 96374; 96375; 96361; J2405; C9113; Q9967

== ENCOUNTER 2021-08-26 13:22 | Emergency (ER) | payer OTHER ==
[2021-08-26 13:30] VITALS: BP 109/78; PULSE 70; RESP 20; TEMP 98.4
[2021-08-26] MEDS ORDERED: PANTOPRAZOLE 40 MG/10 ML VIAL IVP STA (13:46)
[2021-08-26] MEDS ORDERED: KETOROLAC 15 MG/ML 1 ML VIAL IVP STA (13:46)
[2021-08-26] MEDS ORDERED: SODIUM CHLORIDE 0.9% 1,000 ML IV STA (13:46)
--- NOTE | 2021-08-26 13:53 | ED ---
General Adult HPI - General Chief complaint: Abdominal Pain Stated complaint: Abd pain Time Seen by Provider: 08/26/21 13:29 Source: patient, EMS, RN notes reviewed Mode of arrival: EMS Limitations: no limitations - History of Present Illness Initial comments: Patient is a pleasant 31-year-old male presenting to the emergency department with left flank abdominal discomfort. Onset of symptoms was an hour and a half ago. Onset was fairly sudden fairly severe. Movement does not make much difference. No nausea vomiting. No fever. No urinary symptoms. No history of similar symptoms previously. - Related Data Home Medications Medication Instructions Recorded Confirmed Aspirin 325 mg PO DAILY PRN 03/27/17 01/22/21 Albuterol Sulfate [Ventolin HFA] 2 puff INHALATION RT-QID PRN 04/08/20 01/22/21 Budesonide [Pulmicort] 0.25 mg INHALATION RT-BID PRN 01/21/21 01/22/21 Fluticasone Propionate [Flovent 2 puff INHALATION RT-BID 01/21/21 01/22/21 Hfa 110 mcg] Previous Rx's Medication Instructions Recorded Acetaminophen Tab [Tylenol] 650 mg PO Q4HR PRN tab 01/26/21 Mirtazapine [Remeron] 15 mg PO HS 30 Days tab 01/26/21 Ondansetron Odt [Zofran ODT] 4 mg PO BID PRN #6 tab 01/26/21 Sertraline [Zoloft] 25 mg PO DAILY 30 Days tab 01/26/21 Allergies Allergy/AdvReac Type Severity Reaction Status Date / Time egg Allergy Rash/Hives Verified 08/26/21 13:30 latex Allergy Rash/Hives Verified 08/26/21 13:30 milk Allergy Anaphylaxis Verified 08/26/21 13:30 Penicillins Allergy Unknown Verified 08/26/21 13:30 antibiotics Allergy Unknown Uncoded 08/26/21 13:30 antihistamines Allergy Unknown Uncoded 08/26/21 13:30 Review of Systems ROS Statement: Those systems with pertinent positive or pertinent negative responses have been documented in the HPI. ROS Other: All systems not noted in ROS Statement are negative. Constitutional: Denies: fever Eyes: Denies: eye pain ENT: Denies: ear pain Respiratory: Denies: cough Cardiovascular: Denies: chest pain Endocrine: Denies: fatigue Gastrointestinal: Reports: as per HPI, abdominal pain. Denies: nausea, vomiting, diarrhea Genitourinary: Denies: dysuria Musculoskeletal: Denies: back pain Skin: Denies: rash Neurological: Denies: weakness Past Medical History Past Medical History: Asthma, GERD/Reflux, Osteoarthritis (OA), Pneumonia Additional Past Medical History / Comment(s): eosinophilic gastroenteritis, osteoporosis, History of Any Multi-Drug Resistant Organisms: MRSA Date of last positivie culture/infection: 03/02/21 MDRO Source:: [place] Past Surgical History: Unable to Obtain Additional Past Surgical History / Comment(s): surgery for undescended testicle, EGD, colonocopy Past Anesthesia/Blood Transfusion Reactions: Previous Problems w/ Anesthesia, Motion Sickness Additional Past Anesthesia/Blood Transfusion Reaction / Comment(s): "My heart stopped and I stopped breathing age 10 during a EGD/colonoscopy", was done at [facility] about 15 yrs ago. Past Psychological History: Anxiety, Depression, PTSD Smoking Status: Never smoker Past Alcohol Use History: None Reported Past Drug Use History: None Reported - Past Family History Mother Family Medical History: Cancer Father Family Medical History: Cancer General Exam Limitations: no limitations General appearance: alert, in no apparent distress Head exam: Present: normocephalic Eye exam: Present: normal appearance ENT exam: Present: normal oropharynx Neck exam: Present: normal inspection Respiratory exam: Present: normal lung sounds bilaterally Cardiovascular Exam: Present: regular rate, normal rhythm Expanded Peripheral pulses: 2+: Posterior Tibialis (R), Posterior Tibialis (L) GI/Abdominal exam: Present: soft, tenderness (Minimal left flank tenderness), normal bowel sounds. Absent: distended, guarding, rebound, rigid, pulsatile ma ss Extremities exam: Present: normal inspection Neurological exam: Present: alert Psychiatric exam: Present: normal affect, normal mood Skin exam: Present: normal color Course Vital Signs 08/26/21 13:25 Temperature 98.4 F Pulse Rate 70 Respiratory 20 Rate Blood Pressure 109/78 O2 Sat by Pulse 96 Oximetry Medical Decision Making - Medical Decision Making Patient reevaluated and feeling much better. Family is present. Patient updated on results and need for follow-up. - Lab Data Result diagrams: 08/26/21 13:57 08/26/21 13:57 Lab Results 08/26/21 08/26/2122 Range/Units 13:57 13:57 13:57 WBC 11.5 H (3.8-10.6) k/uL RBC 5.29 (4.30-5.90) m/uL Hgb 15.7 (13.0-17.5) gm/dL Hct 47.8 (39.0-53.0) % MCV 90.3 (80.0-100.0) fL MCH 29.6 (25.0-35.0) pg MCHC 32.8 (31.0-37.0) g/dL RDW 13.0 (11.5-15.5) % Plt Count 326 (150-450) k/uL MPV 8.0 Neutrophils % 78 % Lymphocytes % 15 % Monocytes % 4 % Eosinophils % 2 % Basophils % 0 % Neutrophils # 9.0 H (1.3-7.7) k/uL Lymphocytes # 1.7 (1.0-4.8) k/uL Monocytes # 0.4 (0-1.0) k/uL Eosinophils # 0.2 (0-0.7) k/uL Basophils # 0.1 (0-0.2) k/uL PT 10.3 (9.0-12.0) sec INR 1.0 (<1.2) APTT 20.3 L (22.0-30.0) sec Sodium 139 (137-145) mmol/L Potassium 4.2 (3.5-5.1) mmol/L Chloride 107 (98-107) mmol/L Carbon Dioxide 23 (22-30) mmol/L Anion Gap 9 mmol/L BUN 10 (9-20) mg/dL Creatinine 1.10 (0.66-1.25) mg/dL Est GFR (CKD-EPI)AfAm >90 (>60 ml/min/1.73 sqM) Est GFR (CKD-EPI)NonAf 89 (>60 ml/min/1.73 sqM) Glucose 124 H (74-99) mg/dL Calcium 9.4 (8.4-10.2) mg/dL Total Bilirubin 0.7 (0.2-1.3) mg/dL AST 28 (17-59) U/L ALT 34 (4-49) U/L Alkaline Phosphatase 82 (38-126) U/L Total Protein 7.3 (6.3-8.2) g/dL Albumin 4.6 (3.5-5.0) g/dL Amylase 58 (30-110) U/L Lipase 67 (23-300) U/L - Radiology Data Radiology results: report reviewed (Punctate calculus in the bladder, correlate for recently passed stone.) Disposition Clinical Impression: Ureterolithiasis Disposition: HOME SELF-CARE Condition: Stable Instructions (If sedation given, give patient instructions): Kidney Stones (ED) Additional Instructions: Please follow-up with primary care physician in the next couple days for recheck. Return for increased pain, fever, worsening or changing symptoms or other concerns. Is patient prescribed a controlled substance at d/c from ED?: No Referrals: Breanna Mao MD [Primary Care Provider] - 1-2 days Time of Disposition: 14:59
[2021-08-26 14:18] LABS: Basophils # (A) 0.1 k/uL (0-0.2); Basophils % (A) 0 %; Eosinophils # (A) 0.2 k/uL (0-0.7); Eosinophils % (A) 2 %; HCT 47.8 % (39.0-53.0); HGB 15.7 gm/dL (13.0-17.5); Lymphocytes # (A) 1.7 k/uL (1.0-4.8); Lymphocytes % (A) 15 %; MCH 29.6 pg (25.0-35.0); MCHC 32.8 g/dL (31.0-37.0); MCV 90.3 fL (80.0-100.0); Monocytes # (A) 0.4 k/uL (0-1.0); Monocytes % (A) 4 %; Neutrophils % (A) 78 %; Platelet Count 326 k/uL (150-450); RBC 5.29 m/uL (4.30-5.90); WBC 11.5 k/uL (3.8-10.6)
[2021-08-26 14:27] LABS: ALT 34 U/L (4-49); AST 28 U/L (17-59); African American GFR (CKD) >90 (>60 ml/min/1.73 sqM); Albumin 4.6 g/dL (3.5-5.0); Alkaline Phosphatase 82 U/L (38-126); Amylase 58 U/L (30-110); Anion Gap 9 mmol/L; Blood Urea Nitrogen 10 mg/dL (9-20); Calcium 9.4 mg/dL (8.4-10.2); Carbon Dioxide 23 mmol/L (22-30); Chloride 107 mmol/L (98-107); Glucose 124 mg/dL (74-99); Lipase 67 U/L (23-300); Non-African American GFR(CKD) 89 (>60 ml/min/1.73 sqM); Potassium 4.2 mmol/L (3.5-5.1); Sodium 139 mmol/L (137-145); Total Bilirubin 0.7 mg/dL (0.2-1.3); Total Protein 7.3 g/dL (6.3-8.2)
[2021-08-26 14:30] LABS: Prothrombin Time 10.3 sec (9.0-12.0)
[2021-08-26 14:33] LABS: Partial Thromboplastin Time 20.3 sec (22.0-30.0)
--- NOTE | 2021-08-26 14:48 | CT ---
EXAMINATION TYPE: CT abdomen pelvis wo con DATE OF EXAM: 08/26/2021 COMPARISON: 07/24/2021 HISTORY: 31-year-old male Left sided abdominal/flank pain. CT DLP: 465.7 mGycm. Automated exposure control for dose reduction was used. TECHNIQUE: Contiguous axial scanning of the abdomen and pelvis without IV contrast. Coronal and sagit buster reconstructions performed. FINDINGS: Heart normal size without pericardial effusion. Lung bases clear without pleural effusion. Tiny 6 mm hypodensity right liver lobe, likely cyst. Otherwise, no focal liver lesions. Gallbladder, adrenal glands, kidneys, spleen, pancreas show no gross abnormal by noncontrast CT. No nephrolithiasis or hydronephrosis. No dilated small bowel, free fluid, or free air. No mesenteric or retroperitoneal lymphadenopathy. Normal appendix. Mild stool burden. Some submucosal fat deposition along the left side of the colon. No wall thickening. No pericolic inflammatory change. Findings probably idiopathic due to body habitu s. Bladder partially distended. Prostate gland measures 4.5 cm wide, mildly enlarged. Punctate 3 mm calc ulus dependent within the right paramedian bladder lumen. No abnormal fluid collection the pelvis or pelvic lymphadenopathy. Bones: Left L5 hemisacralization with an assimilation joint. Slight levoconvex curvature of the lumb ar spine. IMPRESSION: 1. A punctate 3 mm calculus dependently in the bladder lumen. Correlate for a recently passed left u reteral calculus. There is no additional nephrolithiasis or hydronephrosis seen. 2. Mild prostatomegaly (4.5 cm wide).
== END 2021-08-26 15:37 | disposition home or self-care (01) ==
LOC: EC 13:22
DX: N20.1 Calculus of ureter (principal); J45.909 Unspecified asthma, uncomplicated; K21.9 Gastro-esophageal reflux disease without esophagitis; M19.90 Unspecified osteoarthritis, unspecified site; M81.0 Age-related osteoporosis without current pathological fracture; F41.9 Anxiety disorder, unspecified; F32.A Depression, unspecified; F43.12 Post-traumatic stress disorder, chronic; Z79.82 Long term (current) use of aspirin; Z91.040 Latex allergy status; Z88.0 Allergy status to penicillin; Z88.1 Allergy status to other antibiotic agents
CPT/HCPCS: 99284; 96374; 96375; 96361 ×2; 36415; 80053; 82150; 83690; 85025; 85610; 85730; 74176; J1885; C9113

== ENCOUNTER → 2021-10-06 | Outpatient (CLI) | payer OTHER ==
--- NOTE | 2021-10-07 07:22 | US ---
EXAMINATION TYPE: US scrotum with doppler. Grayscale and color Doppler Duplex imaging performed of t he scrotum. DATE OF EXAM: 10/06/2021 COMPARISON: NONE CLINICAL HISTORY: N50.81. right side pain EXAM MEASUREMENTS: TESTICLES: Right Testicle: 5.1 x 2.1 x 3.2 cm Left Testicle4.3 x 2.0 x 3.4 cm EPIDIDYMIS HEAD: Right Epididymis: complex septated area seen 3.0 x 09 x 2.5 cm superior to right testicle. Left Epididymis: .6 x .8 cm Doppler performed to assess for testicular vascularity; good bilateral color flow and waveforms are s een. There is no evidence of testicular torsion. Presence of hydroceles: no Presence of varicoceles: no IMPRESSION: Complex right epididymal cyst.
== END | disposition home or self-care (01) ==
LOC: RADUSWWP 16:00
PROVIDERS: ATTEND Family Medicine
DX: N50.3 Cyst of epididymis (principal)
CPT/HCPCS: 76870; 93975

== ENCOUNTER 2022-01-12 17:23 | Emergency (ER) | payer OTHER ==
[2022-01-12 18:36] VITALS: RESP 18; TEMP 98.2
--- NOTE | 2022-01-12 23:14 | ED ---
General Adult HPI - General Chief complaint: Recheck/Abnormal Lab/Rx Stated complaint: Covid+/SOB Time Seen by Provider: 01/12/22 22:25 Source: patient, RN notes reviewed Mode of arrival: ambulatory Limitations: no limitations - History of Present Illness Initial comments: This is a 31-year-old male with a past medical history of asthma presents to the emergency department requesting Covid antibody infusion. Patient states he has had symptoms of cough and body aches for the the past 4 days. States he tested positive today at his PCPs office. Reports he also has loss of taste and decreased appetite. Patient denies fever, chills, dizziness, sore throat, chest pain, abdominal pain, nausea, vomiting, diarrhea, or dysuria. - Related Data Home Medications Medication Instructions Recorded Confirmed Aspirin 325 mg PO DAILY PRN 03/27/17 01/22/21 Albuterol Sulfate [Ventolin HFA] 2 puff INHALATION RT-QID PRN 04/08/20 01/22/21 Budesonide [Pulmicort] 0.25 mg INHALATION RT-BID PRN 01/21/21 01/22/21 Fluticasone Propionate [Flovent 2 puff INHALATION RT-BID 01/21/21 01/22/21 Hfa 110 mcg] Previous Rx's Medication Instructions Recorded Acetaminophen Tab [Tylenol] 650 mg PO Q4HR PRN tab 01/26/21 Mirtazapine [Remeron] 15 mg PO HS 30 Days tab 01/26/21 Ondansetron Odt [Zofran ODT] 4 mg PO BID PRN #6 tab 01/26/21 Sertraline [Zoloft] 25 mg PO DAILY 30 Days tab 01/26/21 Dexamethasone [Decadron] 6 mg PO DAILY 10 Days #10 tablet 01/13/22 Allergies Allergy/AdvReac Type Severity Reaction Status Date / Time egg Allergy Rash/Hives Verified 08/26/21 13:30 latex Allergy Rash/Hives Verified 08/26/21 13:30 milk Allergy Anaphylaxis Verified 08/26/21 13:30 Penicillins Allergy Unknown Verified 08/26/21 13:30 antibiotics Allergy Unknown Uncoded 08/26/21 13:30 antihistamines Allergy Unknown Uncoded 08/26/21 13:30 Review of Systems ROS Statement: Those systems with pertinent positive or pertinent negative responses have been documented in the HPI. ROS Other: All systems not noted in ROS Statement are negative. Past Medical History Past Medical History: Asthma, GERD/Reflux, Osteoarthritis (OA), Pneumonia Additional Past Medical History / Comment(s): eosinophilic gastroenteritis, osteoporosis, History of Any Multi-Drug Resistant Organisms: MRSA Date of last positivie culture/infection: 03/02/21 MDRO Source:: Axilla Past Surgical History: Unable to Obtain Additional Past Surgical History / Comment(s): surgery for undescended testicle, EGD, colonocopy Past Anesthesia/Blood Transfusion Reactions: Previous Problems w/ Anesthesia, Motion Sickness Additional Past Anesthesia/Blood Transfusion Reaction / Comment(s): "My heart stopped and I stopped breathing age 10 during a EGD/colonoscopy", was done at [facility] about 15 yrs ago. Past Psychological History: Anxiety, Depression, PTSD Smoking Status: Never smoker Past Alcohol Use History: None Reported Past Drug Use History: None Reported - Past Family History Mother Family Medical History: Cancer Father Family Medical History: Cancer General Exam Limitations: no limitations (Well-developed, well-nourished male in no acute distress. Initial temperature 98.2, pulse 98, respirations 18, blood pressure 117/89, pulse ox 98% on room air.) General appearance: alert, in no apparent distress, other (Patient does have cognitive impairment. His mother is available via telephone for clarification as needed.) ENT exam: Present: normal exam, normal oropharynx, mucous membranes moist, TM's normal bilaterally Neck exam: Present: normal inspection, full ROM. Absent: tenderness, meningismus, lymphadenopathy Respiratory exam: Present: normal lung sounds bilaterally, other (dry cough). Absent: respiratory distress, wheezes, rales, rhonchi, stridor, chest wall tenderness Cardiovascular Exam: Present: regular rate, normal rhythm, normal heart sounds. Absent: systolic murmur, diastolic murmur, rubs, gallop, clicks GI/Abdominal exam: Present: soft, normal bowel sounds. Absent: distended, tenderness, guarding, rebound, rigid Neurological exam: Present: alert, oriented X3, CN II-XII intact Psychiatric exam: Present: anxious, other (Patient is somewhat anxious, though is easily reassured.) Skin exam: Present: warm, dry, intact, normal color. Absent: rash Course Vital Signs 01/12/22 01/13/22 18:33 02:25 Temperature 98.2 F Pulse Rate 98 71 Respiratory 18 Rate Blood Pressure 117/89 129/74 O2 Sat by Pulse 98 98 Oximetry - Reevaluation(s) Reevaluation #1: 01/13/22 00:57 Upon reevaluation, patient is resting comfortably with stable vital signs. He tolerated the antibody infusion with out any adverse side effect. He will be discharged home to follow up with his PCP. Return parameters discussed in detail. Medical Decision Making - Medical Decision Making This is a 31-year-old male with a history of asthma and eosinophilic gastroenteritis who presents to the emergency department requesting the monoc lonal antibody infusion after testing positive for Covid today. Upon exam, patient is well-appearing and in no acute distress. Vital signs are stable. Patient is not short of breath or having chest pain. Given his history of asthma, he is a candidate for the infusion and tolerated it well. He is prescribed decadron and will be discharged home to follow up with his PCP for reevaluation as needed. Return parameters discussed in detail. Patient verbalizes understanding and agrees with this plan. Attending: Ana Rosa. - Lab Data Lab Results 01/12/22 Range/Units 23:45 Coronavirus (PCR) Detected A (Not Detectd) Disposition Clinical Impression: COVID-19 Disposition: HOME SELF-CARE Condition: Stable Instructions (If sedation given, give patient instructions): COVID-19 (Coronavirus Disease 2019) (ED) Additional Instructions: You should wear a mask while in contact with others for the next 5 days. Alternate Tylenol and Motrin if needed for fever or body aches. Use your albuterol every 4-6 hours as needed for wheezing or shortness of breath. Take the steroid once daily. Increase your intake of fluids such as water, Gatorade, or Powerade. Follow-up with your PCP via telephone or video visit for a recheck next week. Return to the emergency department with any new, worsening, or concerning symptoms. Prescriptions: Dexamethasone [Decadron] 6 mg PO DAILY 10 Days #10 tablet Is patient prescribed a controlled substance at d/c from ED?: No Referrals: Breanna Mao MD [Primary Care Provider] - 1-2 days Time of Disposition: 01:54
[2022-01-13] MEDS ORDERED: BEBTELOVIMAB (EUA) 175 MG/2 ML VIAL IV ONE (00:30)
[2022-01-13] MEDS ORDERED: dexAMETHasone ORAL SOLUTION 4 MG/ML VIAL PO STA (02:11)
[2022-01-13 02:29] VITALS: BP 129/74; PULSE 71
== END 2022-01-13 02:32 | disposition home or self-care (01) ==
LOC: EC 17:23
DX: U07.1 COVID-19 (principal); J45.909 Unspecified asthma, uncomplicated; K21.9 Gastro-esophageal reflux disease without esophagitis; M19.90 Unspecified osteoarthritis, unspecified site; F32.A Depression, unspecified; F41.9 Anxiety disorder, unspecified; Z79.82 Long term (current) use of aspirin; Z79.51 Long term (current) use of inhaled steroids; Z79.899 Other long term (current) drug therapy
CPT/HCPCS: 87635; 99283

== ENCOUNTER 2022-07-17 03:58 | Emergency (ER) | payer OTHER ==
[2022-07-17 04:27] VITALS: RESP 16
[2022-07-17] MEDS ORDERED: SODIUM CHLORIDE 0.9% 1,000 ML IV STA (05:24)
[2022-07-17] MEDS ORDERED: ONDANSETRON 4 MG/2 ML VIAL IVP STA (05:24)
[2022-07-17] MEDS ORDERED: MORPHINE SULFATE 4 MG/ML SYRINGE IV STA (05:24)
[2022-07-17 05:35] LABS: Appearance,Urine Turbid (Clear); Bacteria,Urine Rare /hpf; Bilirubin,Urine Negative (Negative); Blood,Urine Negative (Negative); Color,Urine Yellow; Glucose,Urine (UA) Negative (Negative); Ketones,Urine Trace (Negative); Leukocyte Esterase,Urine Negative (Negative); Mucus,Urine Many /hpf; Nitrite,Urine Negative (Negative); Protein,Urine Trace (Negative); Specific Gravity,Urine 1.037 (1.001-1.035); WBC,Urine 2 /hpf (0-5)
[2022-07-17 05:38] LABS: Basophils # (A) 0.1 k/uL (0-0.2); Basophils % (A) 1 %; Eosinophils # (A) 0.5 k/uL (0-0.7); Eosinophils % (A) 6 %; HCT 47.3 % (39.0-53.0); HGB 16.2 gm/dL (13.0-17.5); Lymphocytes # (A) 2.5 k/uL (1.0-4.8); Lymphocytes % (A) 28 %; MCH 29.9 pg (25.0-35.0); MCHC 34.3 g/dL (31.0-37.0); MCV 87.1 fL (80.0-100.0); Mean Platelet Volume 8.6; Monocytes # (A) 0.5 k/uL (0-1.0); Monocytes % (A) 6 %; Neutrophils # (A) 5.2 k/uL (1.3-7.7); Neutrophils % (A) 58 %; Platelet Count 284 k/uL (150-450); RBC 5.43 m/uL (4.30-5.90); RDW 13.4 % (11.5-15.5); WBC 8.9 k/uL (3.8-10.6)
[2022-07-17 05:46] LABS: ALT 28 U/L (4-49); AST 27 U/L (17-59); African American GFR (CKD) >90 (>60 ml/min/1.73 sqM); Albumin 4.9 g/dL (3.5-5.0); Alkaline Phosphatase 72 U/L (38-126); Anion Gap 13 mmol/L; Blood Urea Nitrogen 9 mg/dL (9-20); Calcium 9.1 mg/dL (8.4-10.2); Carbon Dioxide 21 mmol/L (22-30); Chloride 107 mmol/L (98-107); Glucose 130 mg/dL (74-99); Lipase 73 U/L (23-300); Non-African American GFR(CKD) >90 (>60 ml/min/1.73 sqM); Potassium 4.3 mmol/L (3.5-5.1); Sodium 141 mmol/L (137-145); Total Bilirubin 0.7 mg/dL (0.2-1.3); Total Protein 7.2 g/dL (6.3-8.2)
--- NOTE | 2022-07-17 06:04 | CT ---
EXAMINATION TYPE: CT abdomen pelvis w con DATE OF EXAM: 07/17/2022 COMPARISON: 08/26/2021 HISTORY: Lower abdominal pain, nausea, diarrhea x [address] DLP: 681 mGycm Automated exposure control for dose reduction was used. CONTRAST: Performed with IV Contrast, patient injected with 100ml mL of Isovue 300. The lung bases are clear. No pleural effusion. Heart size is normal. No pericardial effusion. Liver spleen stomach pancreas appear intact. Gallbladder is intact. The bile ducts are not dilated. T here is 1 cm cyst in the right lobe of the liver. There is no adrenal mass. Kidneys show satisfactory contrast opacification. No hydronephrosis. Ureter s are not dilated. No retroperitoneal adenopathy. The bladder distends smoothly. No inguinal hernia. No free fluid in the pelvis. There is no mesenteric edema. No ascites or free air. No sign of a bowel obstruction. Appendix is pos terior and appears normal. The bowel gas pattern is normal. No intestinal wall thickening. Lumbar vertebrae have normal alignment. No compression fracture. Posterior elements are intact. Bony pelvis is intact. The hip joints are intact. IMPRESSION: Negative CT scan of the abdomen and pelvis. Normal appendix. There is clearing of the small right-russel ed bladder calculus compared to old exam.
[2022-07-17] MEDS ORDERED: cefTRIAXone IN SWFI 1,000 MG/10 ML SYRINGE IVP STA (06:53)
--- NOTE | 2022-07-17 06:58 | ED ---
Abdominal Pain HPI - General Chief Complaint: Abdominal Pain Stated Complaint: Abdominal Pain, nausea Time Seen by Provider: 07/17/22 04:05 Source: patient Mode of arrival: ambulatory Limitations: no limitations - History of Present Illness Initial Comments: 32-year-old male past medical history of eosinophilic gastroenteritis, nephrolithiasis who presents emergency Department with right lower quadrant abdominal pain. States the pain has been going on for the past 5 days. He has accompanied nausea, vomiting and diarrhea. The pain increased this morning. Denies fevers. Does admit to dysuria and suprapubic pressure. Admits to malodorous urine. Has history of urinary tract infections before. He denies any black or bloody stools. Follows with Dr. Heath for his chronic GI issues. Patient states he had some old antibiotics at that he took with some improvement in his dysuria. No other alleviating, precipitating or modifying factors. - Related Data Home Medications Medication Instructions Recorded Confirmed Aspirin 325 mg PO DAILY PRN 03/27/17 01/22/21 Albuterol Sulfate [Ventolin HFA] 2 puff INHALATION RT-QID PRN 04/08/20 01/22/21 Budesonide [Pulmicort] 0.25 mg INHALATION RT-BID PRN 01/21/21 01/22/21 Fluticasone Propionate [Flovent 2 puff INHALATION RT-BID 01/21/21 01/22/21 Hfa 110 mcg] Previous Rx's Medication Instructions Recorded Acetaminophen Tab [Tylenol] 650 mg PO Q4HR PRN tab 01/26/21 Mirtazapine [Remeron] 15 mg PO HS 30 Days tab 01/26/21 Ondansetron Odt [Zofran ODT] 4 mg PO BID PRN #6 tab 01/26/21 Sertraline [Zoloft] 25 mg PO DAILY 30 Days tab 01/26/21 dexAMETHasone [Decadron] 6 mg PO DAILY 10 Days #10 tablet 01/13/22 Cephalexin [Keflex] 500 mg PO Q6HR #28 cap 07/17/22 Allergies Allergy/AdvReac Type Severity Reaction Status Date / Time egg Allergy Rash/Hives Verified 07/17/22 04:03 latex Allergy Rash/Hives Verified 07/17/22 04:03 milk Allergy Anaphylaxis Verified 07/17/22 04:03 Penicillins Allergy Unknown Verified 07/17/22 04:03 antibiotics Allergy Unknown Uncoded 07/17/22 04:03 antihistamines Allergy Unknown Uncoded 07/17/22 04:03 Review of Systems ROS Statement: Those systems with pertinent positive or pertinent negative responses have been documented in the HPI. ROS Other: All systems not noted in ROS Statement are negative. Past Medical History Past Medical History: Asthma, GERD/Reflux, Osteoarthritis (OA), Pneumonia Additional Past Medical History / Comment(s): eosinophilic gastroenteritis, osteoporosis, kidney stones History of Any Multi-Drug Resistant Organisms: MRSA Date of last positivie culture/infection: 03/02/21 MDRO Source:: Axilla Past Surgical History: Unable to Obtain Additional Past Surgical History / Comment(s): surgery for undescended testicle, EGD, colonocopy Past Anesthesia/Blood Transfusion Reactions: Previous Problems w/ Anesthesia, Motion Sickness Additional Past Anesthesia/Blood Transfusion Reaction / Comment(s): "My heart stopped and I stopped breathing age 10 during a EGD/colonoscopy", was done at [facility] about 15 yrs ago. Past Psychological History: Anxiety, Depression, PTSD Smoking Status: Never smoker Past Alcohol Use History: None Reported Past Drug Use History: None Reported - Past Family History Mother Family Medical History: Cancer Father Family Medical History: Cancer General Exam Limitations: no limitations General appearance: alert, in no apparent distress Head exam: Present: atraumatic, normocephalic, normal inspection Eye exam: Present: normal appearance, PERRL, EOMI. Absent: scleral icterus, conjunctival injection, periorbital swelling ENT exam: Present: normal exam, mucous membranes moist Neck exam: Present: normal inspection. Absent: tenderness, meningismus, lymphadenopathy Respiratory exam: Present: normal lung sounds bilaterally. Absent: respiratory distress, wheezes, rales, rhonchi, stridor Cardiovascular Exam: Present: regular rate, normal rhythm, normal heart sounds. Absent: systolic murmur, diastolic murmur, rubs, gallop, clicks GI/Abdominal exam: Present: soft, tenderness (rlq), normal bowel sounds. Absent: distended, guarding, rebound, rigid Extremities exam: Present: normal inspection, full ROM, normal capillary refill. Absent: tenderness, pedal edema, joint swelling, calf tenderness Back exam: Present: normal inspection Neurological exam: Present: alert, oriented X3, CN II-XII intact Psychiatric exam: Present: normal affect, normal mood Skin exam: Present: warm, dry, intact, normal color. Absent: rash Course Vital Signs 07/17/22 07/17/22 07/17/22 04:00 04:27 05:03 Temperature 97.5 F L 97.9 F Pulse Rate 76 72 76 Respiratory 18 16 16 Rate Blood Pressure 100/75 118/76 114/85 O2 Sat by Pulse 97 98 96 Oximetry 07/17/22 07:00 Temperature 97.8 F Pulse Rate 73 Respiratory 16 Rate Blood Pressure 110/77 O2 Sat by Pulse 100 Oximetry Medical Decision Making - Medical Decision Making Upon arrival the patient is placed in room 14. Thorough history and physical exam is performed. IV access established. Patient is given 4 mg of morphine for pain control, 4 mg of Zofran for nausea and a liter bolus of normal saline. Laboratory studies are conducted. Patient does go for CT of the abdomen with contrast to rule out appendicitis. Every studies within normal limits except for lactic acid 2.8. Urinalysis does demonstrate rare bacteria. CT of abdomen and pelvis demonstrates a normal appendix with no other, but caning process. Patient is reevaluated and reports to improvement in his symptoms. I did discuss diagnosis, differential and treatment options. Patient elects for antibiotic treatment at this time due to bacteria in urine. He'll follow up with his primary care doctor in 2-4 days. Return for any new or worsening symptoms. Patient agreeable to treatment plan and was discharged home in stable condition - Lab Data Result diagrams: 07/17/22 05:26 07/17/22 05:26 Lab Results 07/17/22 07/17/22 07/17/22 Range/Units 04:09 05:26 05:26 WBC 8.9 (3.8-10.6) k/uL RBC 5.43 (4.30-5.90) m/uL Hgb 16.2 (13.0-17.5) gm/dL Hct 47.3 (39.0-53.0) % MCV 87.1 (80.0-100.0) fL MCH 29.9 (25.0-35.0) pg MCHC 34.3 (31.0-37.0) g/dL RDW 13.4 (11.5-15.5) % Plt Count 284 (150-450) k/uL MPV 8.6 Neutrophils % 58 % Lymphocytes % 28 % Monocytes % 6 % Eosinophils % 6 % Basophils % 1 % Neutrophils # 5.2 (1.3-7.7) k/uL Lymphocytes # 2.5 (1.0-4.8) k/uL Monocytes # 0.5 (0-1.0) k/uL Eosinophils # 0.5 (0-0.7) k/uL Basophils # 0.1 (0-0.2) k/uL Sodium 141 (137-145) mmol/L Potassium 4.3 (3.5-5.1) mmol/L Chloride 107 (98-107) mmol/L Carbon Dioxide 21 L (22-30) mmol/L Anion Gap 13 mmol/L BUN 9 (9-20) mg/dL Creatinine 0.91 (0.66-1.25) mg/dL Est GFR (CKD-EPI)AfAm >90 (>60 ml/min/1.73 sqM) Est GFR (CKD-EPI)NonAf >90 (>60 ml/min/1.73 sqM) Glucose 130 H (74-99) mg/dL Lactic Ac Sepsis Rflx Plasma Lactic Acid Félix (0.7-2.0) mmol/L Calcium 9.1 (8.4-10.2) mg/dL Total Bilirubin 0.7 (0.2-1.3) mg/dL AST 27 (17-59) U/L ALT 28 (4-49) U/L Alkaline Phosphatase 72 (38-126) U/L Total Protein 7.2 (6.3-8.2) g/dL Albumin 4.9 (3.5-5.0) g/dL Lipase 73 (23-300) U/L Urine Color Yellow Urine Appearance Turbid (Clear) Urine pH 6.0 (5.0-8.0) Ur Specific Burwell 1.037 H (1.001-1.035) Urine Protein Trace H (Negative) Urine Glucose (UA) Negative (Negative) Urine Ketones Trace H (Negative) Urine Blood Negative (Negative) Urine Nitrite Negative (Negative) Urine Bilirubin Negative (Negative) Urine Urobilinogen 4.0 (<2.0) mg/dL Ur Leukocyte Esterase Negative (Negative) Urine WBC 2 (0-5) /hpf Urine Bacteria Rare H (None) /hpf Urine Mucus Many H (None) /hpf 07/17/22 07/17/22 Range/Units 05:26 05:57 WBC (3.8-10.6) k/uL RBC (4.30-5.90) m/uL Hgb (13.0-17.5) gm/dL Hct (39.0-53.0) % MCV (80.0-100.0) fL MCH (25.0-35.0) pg MCHC (31.0-37.0) g/dL RDW (11.5-15.5) % Plt Count (150-450) k/uL MPV Neutrophils % % Lymphocytes % % Monocytes % % Eosinophils % % Basophils % % Neutrophils # (1.3-7.7) k/uL Lymphocytes # (1.0-4.8) k/uL Monocytes # (0-1.0) k/uL Eosinophils # (0-0.7) k/uL Basophils # (0-0.2) k/uL Sodium (137-145) mmol/L Potassium (3.5-5.1) mmol/L Chloride (98-107) mmol/L Carbon Dioxide (22-30) mmol/L Anion Gap mmol/L BUN (9-20) mg/dL Creatinine (0.66-1.25) mg/dL Est GFR (CKD-EPI)AfAm (>60 ml/min/1.73 sqM) Est GFR (CKD-EPI)NonAf (>60 ml/min/1.73 sqM) Glucose (74-99) mg/dL Lactic Ac Sepsis Rflx Y Plasma Lactic Acid Félix 2.8 H* (0.7-2.0) mmol/L Calcium (8.4-10.2) mg/dL Total Bilirubin (0.2-1.3) mg/dL AST (17-59) U/L ALT (4-49) U/L Alkaline Phosphatase (38-126) U/L Total Protein (6.3-8.2) g/dL Albumin (3.5-5.0) g/dL Lipase (23-300) U/L Urine Color Urine Appearance (Clear) Urine pH (5.0-8.0) Ur Specific Burwell (1.001-1.035) Urine Protein (Negative) Urine Glucose (UA) (Negative) Urine Ketones (Negative) Urine Blood (Negative) Urine Nitrite (Negative) Urine Bilirubin (Negative) Urine Urobilinogen (<2.0) mg/dL Ur Leukocyte Esterase (Negative) Urine WBC (0-5) /hpf Urine Bacteria (None) /hpf Urine Mucus (None) /hpf Disposition Clinical Impression: Bacteria in urine, Dysuria, RLQ abdominal pain Disposition: HOME SELF-CARE Condition: Stable Instructions (If sedation given, give patient instructions): Abdominal Pain (ED) Additional Instructions: Take antibiotics as directed. Follow-up with your primary care doctor in 2-4 days and return for any new or worsening symptoms Prescriptions: Cephalexin [Keflex] 500 mg PO Q6HR #28 cap Is patient prescribed a controlled substance at d/c from ED?: No Referrals: Breanna Mao MD [Primary Care Provider] - 1-2 days Jennifer Serra MD [STAFF PHYSICIAN] - 1-2 days Time of Disposition: 06:57
[2022-07-17 07:00] VITALS: BP 110/77; PULSE 73; TEMP 97.8
== END 2022-07-17 07:02 | disposition home or self-care (01) ==
LOC: EC 03:58
DX: R82.71 Bacteriuria (principal); R30.0 Dysuria; J45.909 Unspecified asthma, uncomplicated; Z91.040 Latex allergy status; Z91.012 Allergy to eggs; Z91.011 Allergy to milk products; Z88.0 Allergy status to penicillin; Z88.1 Allergy status to other antibiotic agents; Z88.8 Allergy status to other drugs, medicaments and biological substances; Z79.82 Long term (current) use of aspirin
CPT/HCPCS: 36415; 80053; 83605; 83690; 85025; 81001; 74177; 99284; 96374; 96375; 96361; J2270; J2405; J0696; Q9967

== ENCOUNTER 2022-09-16 18:30 | Emergency (ER) | payer OTHER ==
[2022-09-16 19:06] VITALS: BP 110/78; PULSE 91; RESP 18; TEMP 98
--- NOTE | 2022-09-16 19:26 | ED ---
General Adult HPI - General Chief complaint: Urogenital Stated complaint: urogenital Time Seen by Provider: 09/16/22 19:19 Source: patient Mode of arrival: ambulatory Limitations: no limitations - History of Present Illness Initial comments: Patient presents to the ED complaining of having suprapubic abdominal pressure, urinary urgency, urinary frequency and dysuria for the past 4 days or so. Patient states that he has a history of renal stones. Patient denies trauma or injury, fever or chills, headache, chest pain or pressure, dyspnea, dizziness, upper abdominal pain, back or flank pain, nausea/vomiting/diarrhea, constipation, bloody or melanotic stool, hematuria, penile pain or discharge or any other symptoms or complaints. - Related Data Home Medications Medication Instructions Recorded Confirmed Aspirin 325 mg PO DAILY PRN 03/27/17 01/22/21 Albuterol Sulfate [Ventolin HFA] 2 puff INHALATION RT-QID PRN 04/08/20 01/22/21 Budesonide [Pulmicort] 0.25 mg INHALATION RT-BID PRN 01/21/21 01/22/21 Fluticasone Propionate [Flovent 2 puff INHALATION RT-BID 01/21/21 01/22/21 Hfa 110 mcg] Previous Rx's Medication Instructions Recorded Acetaminophen Tab [Tylenol] 650 mg PO Q4HR PRN tab 01/26/21 Mirtazapine [Remeron] 15 mg PO HS 30 Days tab 01/26/21 Ondansetron Odt [Zofran ODT] 4 mg PO BID PRN #6 tab 01/26/21 Sertraline [Zoloft] 25 mg PO DAILY 30 Days tab 01/26/21 dexAMETHasone [Decadron] 6 mg PO DAILY 10 Days #10 tablet 01/13/22 Cephalexin [Keflex] 500 mg PO Q6HR #28 cap 07/17/22 Allergies Allergy/AdvReac Type Severity Reaction Status Date / Time egg Allergy Rash/Hives Verified 09/16/22 19:06 latex Allergy Rash/Hives Verified 09/16/22 19:06 milk Allergy Anaphylaxis Verified 09/16/22 19:06 Penicillins Allergy Unknown Verified 09/16/22 19:06 antibiotics Allergy Unknown Uncoded 09/16/22 19:06 antihistamines Allergy Unknown Uncoded 09/16/22 19:06 Review of Systems ROS Statement: Those systems with pertinent positive or pertinent negative responses have been documented in the HPI. ROS Other: All systems not noted in ROS Statement are negative. Past Medical History Past Medical History: Asthma, GERD/Reflux, Osteoarthritis (OA), Pneumonia Additional Past Medical History / Comment(s): eosinophilic gastroenteritis, osteoporosis, kidney stones History of Any Multi-Drug Resistant Organisms: MRSA Date of last positivie culture/infection: 03/02/21 MDRO Source:: [place] Past Surgical History: Unable to Obtain Additional Past Surgical History / Comment(s): surgery for undescended testicle, EGD, colonocopy Past Anesthesia/Blood Transfusion Reactions: Previous Problems w/ Anesthesia, Motion Sickness Additional Past Anesthesia/Blood Transfusion Reaction / Comment(s): "My heart st opped and I stopped breathing age 10 during a EGD/colonoscopy", was done at [facility] about 15 yrs ago. Past Psychological History: Anxiety, Depression, PTSD Smoking Status: Never smoker Past Alcohol Use History: None Reported Past Drug Use History: None Reported - Past Family History Mother Family Medical History: Cancer Father Family Medical History: Cancer General Exam Limitations: no limitations General appearance: alert, in no apparent distress Head exam: Present: atraumatic, normocephalic Eye exam: Present: normal appearance, EOMI ENT exam: Present: mucous membranes moist Respiratory exam: Present: normal lung sounds bilaterally. Absent: respiratory distress, wheezes, rales, rhonchi, stridor Cardiovascular Exam: Present: regular rate, normal rhythm, normal heart sounds, other (Normal radial pulses bilaterally) GI/Abdominal exam: Present: soft, normal bowel sounds, other (Mild suprapubic abdominal tenderness). Absent: distended, guarding, rebound Extremities exam: Absent: pedal edema Back exam: Absent: CVA tenderness (R), CVA tenderness (L) Neurological exam: Present: alert, oriented X3. Absent: motor sensory deficit Psychiatric exam: Present: normal affect, normal mood Skin exam: Present: warm, dry, intact, normal color Course Vital Signs 09/16/22 19:02 Temperature 98.0 F Pulse Rate 91 Respiratory 18 Rate Blood Pressure 110/78 O2 Sat by Pulse 98 Oximetry Medical Decision Making - Medical Decision Making Was pt. sent in by a medical professional or institution (, PA, PEANUT PICKER, urgent care, hospital, or fci...) When possible be specific @ -[No] Did you speak to anyone other than the patient for history (EMS, parent, family, police, friend...)? What history was obtained from this source @ -[No] Did you review nursing and triage notes (agree or disagree)? Why? @ -[I reviewed and agree with nursing and triage notes] Were old charts reviewed (outside hosp., previous admission, EMS record, old EKG, old radiological studies, urgent care reports/EKG's, fci records)? Report findings @ -[No old charts were reviewed] Differential Diagnosis (chest pain, altered mental status, abdominal pain women, abdominal pain men, vaginal bleeding, weakness, fever, dyspnea, syncope, headache, dizziness, GI bleed, back pain, seizure, CVA, palpatations, mental health)? @ -UTI, pyelonephritis, prostatitis, bladder spasm, urinary retention, renal stone, renal disease EKG interpreted by me (3pts min.). @ -None done X-rays interpreted by me (1pt min.). @ -[None done] CT interpreted by me (1pt min.). @ -No U/S interpreted by me (1pt. min.). @ -[None done] What testing was considered but not performed or refused? (CT, X-rays, U/S, lab s)? Why? @ -[None] What meds were considered but not given or refused? Why? @ -[None] Did you discuss the management of the patient with other professionals (professionals i.e. , PA, PEANUT PICKER, lab, RT, psych nurse, social media designer, ocean export coordinator, teacher, radiological defense officer, watch case polisher)? Give summary @ -[No] Was smoking cessation discussed for >3mins.? @ -[No] Was critical care preformed (if so, how long)? @ -[No] Were there social determinants of health that impacted care today? How? (Homelessness, low income, unemployed, alcoholism, drug addiction, transportation, low edu. Level, literacy, decrease access to med. care, fpc, rehab)? @ -[No] Was there de-escalation of care discussed even if they declined (Discuss DNR or withdrawal of care, Hospice)? DNR status @ -[No] What co-morbidities impacted this encounter? (DM, HTN, Smoking, COPD, CAD, Cancer, CVA, ARF, Chemo, Hep., AIDS, mental health diagnosis, sleep apnea, morbid obesity)? @ -History of renal stones Was patient admitted / discharged? Hospital course, mention meds given and route, prescriptions, significant lab abnormalities, going to OR and other pertinent info. @ -Patient's labs, UA and CT abdomen/pelvis are all fairly unremarkable. Patient's post void bladder scan showed only about 100 and smells of urine. I doubt significant urinary retention at this time. I suspect that the patient's symptoms may potentially be due to bladder spasms, but there is no evidence of UTI, nephrolithiasis or obstructive uropathy. Will discharge patient home at this time. Patient was instructed to follow up closely with his urologist. Patient feels comfortable with this plan. Undiagnosed new problem with uncertain prognosis? @ -[No] Drug Therapy requiring intensive monitoring for toxicity (Heparin, Nitro, Insulin, Cardizem)? @ -[No] Were any procedures done? @ -[No] Diagnosis/symptom? @ -[Dysuria and urinary urgency] Acute, or Chronic, or Acute on Chronic? @ -Acute Uncomplicated (without systemic symptoms) or Complicated (systemic symptoms)? @ -Uncomplicated Side effects of treatment? @ -[No] Exacerbation, Progression, or Severe Exacerbation? @ -[No] Poses a threat to life or bodily function? How? (Chest pain, [place], [place], pneumonia, PE, COPD, DKA, ARF, appy, cholecystitis, CVA, Diverticulitis, Homicidal, Suicidal, threat to staff... and all critical care pts) @ -[No] - Lab Data Result diagrams: 09/16/22 19:28 09/16/22 19:28 Lab Results 09/16/22 09/16/22 09/16/22 Range/Units 19:28 19:28 19:35 WBC 9.4 (3.8-10.6) k/uL RBC 5.09 (4.30-5.90) m/uL Hgb 14.9 (13.0-17.5) gm/dL Hct 44.5 (39.0-53.0) % MCV 87.4 (80.0-100.0) fL MCH 29.3 (25.0-35.0) pg MCHC 33.5 (31.0-37.0) g/dL RDW 13.2 (11.5-15.5) % Plt Count 293 (150-450) k/uL MPV 7.4 Neutrophils % 54 % Lymphocytes % 30 % Monocytes % 5 % Eosinophils % 8 % Basophils % 1 % Neutrophils # 5.1 (1.3-7.7) k/uL Lymphocytes # 2.8 (1.0-4.8) k/uL Monocytes # 0.5 (0-1.0) k/uL Eosinophils # 0.8 H (0-0.7) k/uL Basophils # 0.1 (0-0.2) k/uL Sodium 140 (137-145) mmol/L Potassium 4.1 (3.5-5.1) mmol/L Chloride 112 H (98-107) mmol/L Carbon Dioxide 20 L (22-30) mmol/L Anion Gap 8 mmol/L BUN 14 (9-20) mg/dL Creatinine 0.94 (0.66-1.25) mg/dL Est GFR (CKD-EPI)AfAm >90 (>60 ml/min/1.73 sqM) Est GFR (CKD-EPI)NonAf >90 (>60 ml/min/1.73 sqM) Glucose 89 (74-99) mg/dL Calcium 8.9 (8.4-10.2) mg/dL Total Bilirubin 0.4 (0.2-1.3) mg/dL AST 22 (17-59) U/L ALT 27 (4-49) U/L Alkaline Phosphatase 60 (38-126) U/L Total Protein 6.8 (6.3-8.2) g/dL Albumin 4.2 (3.5-5.0) g/dL Urine Color Yellow Urine Appearance Clear (Clear) Urine pH 5.0 (5.0-8.0) Ur Specific [place] 1.019 (1.001-1.035) Urine Protein Negative (Negative) Urine Glucose (UA) Negative (Negative) Urine Ketones Negative (Negative) Urine Blood Negative (Negative) Urine Nitrite Negative (Negative) Urine Bilirubin Negative (Negative) Urine Urobilinogen <2.0 (<2.0) mg/dL Ur Leukocyte Esterase Negative (Negative) - Radiology Data Noncontrast CT abdomen/pelvis: No evidence of obstructive uropathy or urolithiasis. Urinary bladder is partially distended without abnormality. Disposition Clinical Impression: Dysuria, Urinary urgency Narrative: Possible bladder spasms Disposition: HOME SELF-CARE Condition: Stable Instructions (If sedation given, give patient instructions): Dysuria (ED) Additional Instructions: Return to the ER immediately should you develop inability or decreased ability to urinate, new or worsening pain, a fever, vomiting, feeling dizzy or faint, shortness of breath, or new or worsening symptoms. Follow up closely with your primary care provider, as well as your urologist. Is patient prescribed a controlled substance at d/c from ED?: No Referrals: Breanna Mao MD [Primary Care Provider] - 1-2 days Morgan Mcclain MD [STAFF PHYSICIAN] - 1-2 days Time of Disposition: 21:25
[2022-09-16 19:40] LABS: Basophils # (A) 0.1 k/uL (0-0.2); Basophils % (A) 1 %; Eosinophils # (A) 0.8 k/uL (0-0.7); Eosinophils % (A) 8 %; HCT 44.5 % (39.0-53.0); HGB 14.9 gm/dL (13.0-17.5); Lymphocytes # (A) 2.8 k/uL (1.0-4.8); Lymphocytes % (A) 30 %; MCH 29.3 pg (25.0-35.0); MCHC 33.5 g/dL (31.0-37.0); MCV 87.4 fL (80.0-100.0); Mean Platelet Volume 7.4; Monocytes # (A) 0.5 k/uL (0-1.0); Monocytes % (A) 5 %; Neutrophils # (A) 5.1 k/uL (1.3-7.7); Neutrophils % (A) 54 %; Platelet Count 293 k/uL (150-450); RBC 5.09 m/uL (4.30-5.90); RDW 13.2 % (11.5-15.5); WBC 9.4 k/uL (3.8-10.6)
[2022-09-16 19:49] LABS: ALT 27 U/L (4-49); AST 22 U/L (17-59); African American GFR (CKD) >90 (>60 ml/min/1.73 sqM); Albumin 4.2 g/dL (3.5-5.0); Alkaline Phosphatase 60 U/L (38-126); Anion Gap 8 mmol/L; Blood Urea Nitrogen 14 mg/dL (9-20); Calcium 8.9 mg/dL (8.4-10.2); Carbon Dioxide 20 mmol/L (22-30); Chloride 112 mmol/L (98-107); Glucose 89 mg/dL (74-99); Non-African American GFR(CKD) >90 (>60 ml/min/1.73 sqM); Potassium 4.1 mmol/L (3.5-5.1); Sodium 140 mmol/L (137-145); Total Bilirubin 0.4 mg/dL (0.2-1.3); Total Protein 6.8 g/dL (6.3-8.2)
[2022-09-16 20:00] LABS: Appearance,Urine Clear (Clear); Bilirubin,Urine Negative (Negative); Blood,Urine Negative (Negative); Color,Urine Yellow; Glucose,Urine (UA) Negative (Negative); Ketones,Urine Negative (Negative); Leukocyte Esterase,Urine Negative (Negative); Nitrite,Urine Negative (Negative); Protein,Urine Negative (Negative); Specific Gravity,Urine 1.019 (1.001-1.035); Urobilinogen,Urine <2.0 mg/dL (<2.0)
--- NOTE | 2022-09-16 20:24 | CT ---
EXAMINATION TYPE: CT abdomen pelvis wo con CT DLP: 408.1 mGycm, Automated exposure control for dose reduction was used. DATE OF EXAM: 09/16/2022 8:15 PM COMPARISON: CT abdomen pelvis most recent from 07/17/2022 CLINICAL INDICATION:Male, 32 years old with history of lower abdominal pain, dysuria; lower abdominal pain, dysuria TECHNIQUE: Axial CT of the abdomen and pelvis. Sagittal and coronal reformats were created on a [employer] workstation. Contrast used: None Oral contrast used: without Oral Contrast FINDINGS: LOWER CHEST: Unremarkable ABDOMEN LIVER: Unremarkable GALLBLADDER AND BILE DUCTS: Unremarkable. PANCREAS: Unremarkable. SPLEEN: Unremarkable. ADRENAL GLANDS: Unremarkable. KIDNEYS AND URETERS: No evidence of hydronephrosis or renal calculus. The ureters are unremarkable. PELVIS BLADDER: Partially distended which limits evaluation. REPRODUCTIVE: Unremarkable. ABDOMEN & PELVIS STOMACH AND BOWEL: No evidence of bowel obstruction. Appendix is normal. PERITONEUM/RETROPERITONEUM: No evidence of pneumoperitoneum or free fluid. . VASCULATURE: No evidence of aortic aneurysm. MUSCULOSKELETAL: No acute osseous abnormalities LYMPH NODES: No gross evidence for lymphadenopathy. SOFT TISSUE/ABDOMINAL WALL: Unremarkable IMPRESSION: 1. No evidence of obstructive uropathy or urolithiasis. Urinary bladder is partially distended witho ut abnormality.
== END 2022-09-16 21:38 | disposition home or self-care (01) ==
LOC: EC 18:30
DX: R30.0 Dysuria (principal); R39.15 Urgency of urination; J45.909 Unspecified asthma, uncomplicated; M19.90 Unspecified osteoarthritis, unspecified site; F41.9 Anxiety disorder, unspecified; F32.A Depression, unspecified; Z88.0 Allergy status to penicillin; Z91.012 Allergy to eggs; Z91.011 Allergy to milk products; Z88.1 Allergy status to other antibiotic agents; Z88.8 Allergy status to other drugs, medicaments and biological substances; Z79.82 Long term (current) use of aspirin; Z79.899 Other long term (current) drug therapy
CPT/HCPCS: 36415; 51798; 74176; 80053; 81003; 85025; 99284

== ENCOUNTER 2023-02-14 15:40 | Emergency (ER) | payer OTHER ==
[2023-02-14 15:58] VITALS: TEMP 98.1
[2023-02-14] MEDS ORDERED: EMTRICITABINE/TENOFOVIR (TDF) 1 EACH, DOLUTEGRAVIR SODIUM 50 MG PO STA ×2 (17:07)
--- NOTE | 2023-02-14 17:17 | ED ---
General Adult HPI - General Chief complaint: Recheck/Abnormal Lab/Rx Stated complaint: labs Time Seen by Provider: 02/14/23 16:50 Source: patient Mode of arrival: ambulatory - History of Present Illness Initial comments: Patient is a 33-year-old male presents to the emergency department for HIV testing. Patient reports having anal intercourse on the receiving end on Sunday. The intercourse was unprotected the other individual has HIV. Viral load/treatment status unknown. Patient wants testing and treatment. He currently feels well denies any physical concerns other than anxiety. - Related Data Home Medications Medication Instructions Recorded Confirmed Dicyclomine [Bentyl] 10 mg PO TID 02/14/23 02/14/23 FLUoxetine HCL [PROzac] 20 mg PO DAILY 02/14/23 02/14/23 Famotidine 20 mg PO BID 02/14/23 02/14/23 Previous Rx's Medication Instructions Recorded Emtricitabine/Tenofovir (Tdf) 1 tab PO DAILY #28 tab 02/14/23 [Truvada 200 mg-300 mg Tablet] Raltegravir Potassium [Isentress] 400 mg PO BID #56 tablet 02/14/23 Allergies Allergy/AdvReac Type Severity Reaction Status Date / Time egg Allergy Rash/Hives Verified 02/14/23 18:06 latex Allergy Rash/Hives Verified 02/14/23 18:06 milk Allergy Anaphylaxis Verified 02/14/23 18:06 Penicillins Allergy Unknown Verified 02/14/23 18:06 antibiotics Allergy Unknown Uncoded 02/14/23 18:06 antihistamines Allergy Unknown Uncoded 02/14/23 18:06 Review of Systems ROS Statement: Those systems with pertinent positive or pertinent negative responses have been documented in the HPI. ROS Other: All systems not noted in ROS Statement are negative. Past Medical History Past Medical History: Asthma, GERD/Reflux, Osteoarthritis (OA), Pneumonia Additional Past Medical History / Comment(s): eosinophilic gastroenteritis, osteoporosis, kidney stones History of Any Multi-Drug Resistant Organisms: MRSA Date of last positivie culture/infection: 03/02/21 MDRO Source:: [place] Past Surgical History: Unable to Obtain Additional Past Surgical History / Comment(s): surgery for undescended testicle, EGD, colonocopy Past Anesthesia/Blood Transfusion Reactions: Previous Problems w/ Anesthesia, Motion Sickness Additional Past Anesthesia/Blood Transfusion Reaction / Comment(s): "My heart stopped and I stopped breathing age 10 during a EGD/colonoscopy", was done at [facility] about 15 yrs ago. Past Psychological History: Anxiety, Depression, PTSD Smoking Status: Never smoker Past Alcohol Use History: None Reported Past Drug Use History: None Reported - Past Family History Mother Family Medical History: Cancer Father Family Medical History: Cancer General Exam General appearance: alert, anxious Respiratory exam: Present: normal lung sounds bilaterally. Absent: respiratory distress, wheezes, rales, rhonchi, stridor Cardiovascular Exam: Present: regular rate, normal rhythm, normal heart sounds. Absent: systolic murmur, diastolic murmur, rubs, gallop, clicks Skin exam: Present: warm, dry, intact, normal color. Absent: rash Course Vital Signs 02/14/23 02/14/23 02/14/23 15:56 18:45 20:33 Temperature 98.1 F Pulse Rate 81 120 H 85 Respiratory 16 20 16 Rate Blood Pressure 108/71 124/91 124/87 O2 Sat by Pulse 97 97 97 Oximetry Medical Decision Making - Medical Decision Making Was pt. sent in by a medical professional or institution (, PA, GIANT TIRE REPAIRER, urgent care, hospital, or long term...) When possible be specific @ -No Did you speak to anyone other than the patient for history (EMS, parent, family, police, friend...)? What history was obtained from this source @ -No Did you review nursing and triage notes (agree or disagree)? Why? @ -I reviewed and agree with nursing and triage notes Were old charts reviewed (outside hosp., previous admission, EMS record, old EKG, old radiological studies, urgent care reports/EKG's, long term records)? Report findings @ -No old charts were reviewed Differential Diagnosis (chest pain, altered mental status, abdominal pain women, abdominal pain men, vaginal bleeding, weakness, fever, dyspnea, syncope, headache, dizziness, GI bleed, back pain, seizure, CVA, palpatations, mental health)? @ -HIV, gonorrhea, chlamydia EKG interpreted by me (3pts min.). @ -None X-rays interpreted by me (1pt min.). @ -No rib fracture no acute cardiopulmonary process CT interpreted by me (1pt min.). @ -None done U/S interpreted by me (1pt. min.). @ -None done What testing was considered but not performed or refused? (CT, X-rays, U/S, labs)? Why? @ -None What meds were considered but not given or refused? Why? @ -None Did you discuss the management of the patient with other professionals (professionals i.e. , PA, GIANT TIRE REPAIRER, lab, RT, psych nurse, social worker health services, stock ranch supervisor, teacher, risk officer, outsole caser)? Give summary @ -No Was smoking cessation discussed for >3mins.? @ -No Was critical care preformed (if so, how long)? @ -No Were there social determinants of health that impacted care today? How? (Homelessness, low income, unemployed, alcoholism, drug addiction, transportation, low edu. Level, literacy, decrease access to med. care, group home, rehab)? @ -No Was there de-escalation of care discussed even if they declined (Discuss DNR or withdrawal of care, Hospice)? DNR status @ -No What co-morbidities impacted this encounter? (DM, HTN, Smoking, COPD, CAD, Cancer, CVA, ARF, Chemo, Hep., AIDS, mental health diagnosis, sleep apnea, morbid obesity)? @ -None Was patient admitted / discharged? Hospital course, mention meds given and route, prescriptions, significant lab abnormalities, going to OR and other pertinent info. @ Patient presenting for HIV testing and treatment. He does not have any contraindications to treatment. Labs obtained which are unremarkable. Patient did choke on HIV medication Heimlich maneuver was performed by a nurse. Patient did cough up some of the pill. He did not show any signs of respiratory distress no wheezing. He did have some mild right rib pain after Heimlich maneuver x-ray obtained and interpreted by myself showing no rib fracture. Patient was able to swallow water and apple sauce. I discussed case with pharmacy patient will crush his medication at home in to take it. He will follow up with his primary care provider for further STD testing and monitoring. He is aware that he will likely need retesting. Undiagnosed new problem with uncertain prognosis? @ -No Drug Therapy requiring intensive monitoring for toxicity (Heparin, Nitro, Insulin, Cardizem)? @ -No Were any procedures done? @ -No Diagnosis/symptom? @ HIV exposure Acute, or Chronic, or Acute on Chronic? @ -acute Uncomplicated (without systemic symptoms) or Complicated (systemic symptoms)? @ uncomplicated Side effects of treatment? @ -No Exacerbation, Progression, or Severe Exacerbation? @ -No Poses a threat to life or bodily function? How? (Chest pain, [place], [place], pneumonia, PE, COPD, DKA, ARF, appy, cholecystitis, CVA, Diverticulitis, Homicidal, Suicidal, threat to staff... and all critical care pts) @ -No Dr. Reid is my attending - Lab Data Result diagrams: 02/14/23 17:33 02/14/23 17:33 Lab Results 02/14/23 02/14/23 Range/Units 17:33 17:33 WBC 8.5 (3.8-10.6) k/uL RBC 5.52 (4.30-5.90) m/uL Hgb 16.3 (13.0-17.5) gm/dL Hct 48.4 (39.0-53.0) % MCV 87.8 (80.0-100.0) fL MCH 29.5 (25.0-35.0) pg MCHC 33.6 (31.0-37.0) g/dL RDW 13.3 (11.5-15.5) % Plt Count 290 (150-450) k/uL MPV 7.9 Neutrophils % 68 % Lymphocytes % 24 % Monocytes % 5 % Eosinophils % 2 % Basophils % 0 % Neutrophils # 5.8 (1.3-7.7) k/uL Lymphocytes # 2.0 (1.0-4.8) k/uL Monocytes # 0.4 (0-1.0) k/uL Eosinophils # 0.2 (0-0.7) k/uL Basophils # 0.0 (0-0.2) k/uL Sodium 139 (137-145) mmol/L Potassium 4.5 (3.5-5.1) mmol/L Chloride 106 (98-107) mmol/L Carbon Dioxide 22 (22-30) mmol/L Anion Gap 11 mmol/L BUN 16 (9-20) mg/dL Creatinine 1.11 (0.66-1.25) mg/dL Est GFR (CKD-EPI)AfAm >90 (>60 ml/min/1.73 sqM) Est GFR (CKD-EPI)NonAf 87 (>60 ml/min/1.73 sqM) Glucose 88 (74-99) mg/dL Calcium 9.4 (8.4-10.2) mg/dL Total Bilirubin 0.7 (0.2-1.3) mg/dL AST 25 (17-59) U/L ALT 24 (4-49) U/L Alkaline Phosphatase 69 (38-126) U/L Total Protein 7.4 (6.3-8.2) g/dL Albumin 4.6 (3.5-5.0) g/dL Disposition Clinical Impression: HIV exposure Disposition: HOME SELF-CARE Condition: Good Instructions (If sedation given, give patient instructions): Sexually Transmitted Diseases (ED), HIV Transmission (ED) Additional Instructions: Take medication as directed. This medication may cause side effects including but not limited to fatigue, stomach upset, diarrhea and nausea. Follow-up with your primary care provider in one to 2 days. You should have full testing for other sexually transmitted infections. You will also need repeat HIV testing and monitoring while taking the antiviral medication. Return to the emergency department if you experience new, concerning, or worsening symptoms. Prescriptions: Raltegravir Potassium [Isentress] 400 mg PO BID #56 tablet Emtricitabine/Tenofovir (Tdf) [Truvada 200 mg-300 mg Tablet] 1 tab PO DAILY #28 tab Is patient prescribed a controlled substance at d/c from ED?: No Referrals: Breanna Mao MD [Primary Care Provider] - 1-2 days
[2023-02-14 18:08] LABS: Basophils % (A) 0 %; Eosinophils # (A) 0.2 k/uL (0-0.7); Eosinophils % (A) 2 %; HCT 48.4 % (39.0-53.0); HGB 16.3 gm/dL (13.0-17.5); Lymphocytes % (A) 24 %; MCH 29.5 pg (25.0-35.0); MCHC 33.6 g/dL (31.0-37.0); MCV 87.8 fL (80.0-100.0); Mean Platelet Volume 7.9; Monocytes # (A) 0.4 k/uL (0-1.0); Monocytes % (A) 5 %; Neutrophils # (A) 5.8 k/uL (1.3-7.7); Neutrophils % (A) 68 %; Platelet Count 290 k/uL (150-450); RBC 5.52 m/uL (4.30-5.90); RDW 13.3 % (11.5-15.5); WBC 8.5 k/uL (3.8-10.6)
[2023-02-14 18:17] LABS: ALT 24 U/L (4-49); AST 25 U/L (17-59); African American GFR (CKD) >90 (>60 ml/min/1.73 sqM); Albumin 4.6 g/dL (3.5-5.0); Alkaline Phosphatase 69 U/L (38-126); Anion Gap 11 mmol/L; Blood Urea Nitrogen 16 mg/dL (9-20); Calcium 9.4 mg/dL (8.4-10.2); Carbon Dioxide 22 mmol/L (22-30); Chloride 106 mmol/L (98-107); Glucose 88 mg/dL (74-99); Non-African American GFR(CKD) 87 (>60 ml/min/1.73 sqM); Potassium 4.5 mmol/L (3.5-5.1); Sodium 139 mmol/L (137-145); Total Bilirubin 0.7 mg/dL (0.2-1.3); Total Protein 7.4 g/dL (6.3-8.2)
[2023-02-14] MEDS ORDERED: GLUCAGON 1 MG/ML VIAL IM STA (18:47)
[2023-02-14] MEDS ORDERED: GLUCAGON 1 MG/ML VIAL IVP STA (18:49)
--- NOTE | 2023-02-14 19:26 | XR ---
EXAMINATION TYPE: XR ribs RT w pa chest xray DATE OF EXAM: 02/14/2023 CLINICAL HISTORY: Pain, Fall Four views of the ribs fail demonstrate evidence for displaced rib fracture or secondary sign of rib fracture. Visualized lungs are clear. No evidence for pneumothorax. Lungs are clear. No contusive c hange seen. IMPRESSION: 1. No displaced rib fracture is seen. ICD 10 NO FRACTURE, INITIAL EVALUATION
[2023-02-14 20:41] VITALS: BP 124/87; PULSE 85; RESP 16
[2023-02-15 03:57] LABS: HIV 2 AB Non-Reactive (Non-Reactive); HIV AB P24 Non-Reactive (Non-Reactive); HIV P24 AG Non-Reactive (Non-Reactive)
== END 2023-02-14 20:45 | disposition home or self-care (01) ==
LOC: EC 15:40
DX: Z20.6 Contact with and (suspected) exposure to human immunodeficiency virus [HIV] (principal); R07.81 Pleurodynia; F41.9 Anxiety disorder, unspecified; F32.A Depression, unspecified; Z79.899 Other long term (current) drug therapy; Z88.0 Allergy status to penicillin; Z88.1 Allergy status to other antibiotic agents; Z91.040 Latex allergy status; Z91.012 Allergy to eggs; Z91.011 Allergy to milk products; Z88.9 Allergy status to unspecified drugs, medicaments and biological substances
CPT/HCPCS: 36415; 80053; 85025; 87390; 71101; 99284; 96374; J1610

== ENCOUNTER 2023-04-30 17:22 | Emergency (ER) | payer OTHER ==
[2023-04-30 17:31] VITALS: TEMP 97.9
--- NOTE | 2023-04-30 19:22 | ED ---
SOB HPI - General Chief Complaint: Shortness of Breath Stated Complaint: SOB,Chest pain Time Seen by Provider: 04/30/23 19:09 Source: patient, RN notes reviewed Mode of arrival: ambulatory Limitations: no limitations - History of Present Illness Initial Comments: This is a 33 year old male who presents to the emergency department for coughing, chest pain, and shortness of breath. Symptoms have been going on for 3 weeks at this point. Patient does have a history of asthma, and states that this feels like a typical asthma exacerbation to him. The cough is productive with green/yellow mucus. He did complete a course of steroids and azithromycin with no relief in symptoms. His PCP subsequently instructed him to come to the emergency department for evaluation. He has had to be hospitalized many times for asthma exacerbations in the past. Currently using his albuterol inhaler and nebulizer treatments on a regular basis as well. Denies any fevers, chills, sore throat, palpitations, abdominal pain, nausea, vomiting, diarrhea, back pain, or headaches. MD Complaint: shortness of breath, cough, chest pain - Related Data Home Medications Medication Instructions Recorded Confirmed Dicyclomine [Bentyl] 10 mg PO TID 02/14/23 02/14/23 FLUoxetine HCL [PROzac] 20 mg PO DAILY 02/14/23 02/14/23 Famotidine 20 mg PO BID 02/14/23 02/14/23 Previous Rx's Medication Instructions Recorded Emtricitabine/Tenofovir (Tdf) 1 tab PO DAILY #28 tab 02/14/23 [Truvada 200 mg-300 mg Tablet] Raltegravir Potassium [Isentress] 400 mg PO BID #56 tablet 02/14/23 Dolutegravir Sodium [Tivicay] 50 mg PO DAILY #30 tablet 02/19/23 Clarithromycin [Biaxin] 500 mg PO BID 7 Days #14 tab 04/30/23 Ipratropium-Albuterol Nebulize 3 ml INHALATION Q4-6H PRN #90 ml 04/30/23 [Duoneb 0.5 mg-3 mg/3 ml Soln] predniSONE 50 mg PO DAILY 5 Days #5 tab 04/30/23 Allergies Allergy/AdvReac Type Severity Reaction Status Date / Time egg Allergy Rash/Hives Verified 04/30/23 17:31 latex Allergy Rash/Hives Verified 04/30/23 17:31 milk Allergy Anaphylaxis Verified 04/30/23 17:31 Penicillins Allergy Unknown Verified 04/30/23 17:31 antibiotics Allergy Unknown Uncoded 02/14/23 18:06 antihistamines Allergy Unknown Uncoded 04/30/23 17:31 Review of Systems ROS Statement: Those systems with pertinent positive or pertinent negative responses have been documented in the HPI. ROS Other: All systems not noted in ROS Statement are negative. Past Medical History Past Medical History: Asthma, GERD/Reflux, Osteoarthritis (OA), Pneumonia Additional Past Medical History / Comment(s): eosinophilic gastroenteritis, osteoporosis, kidney stones History of Any Multi-Drug Resistant Organisms: MRSA Date of last positivie culture/infection: 03/02/21 MDRO Source:: [place] Past Surgical History: Unable to Obtain Additional Past Surgical History / Comment(s): surgery for undescended testicle, EGD, colonocopy Past Anesthesia/Blood Transfusion Reactions: Previous Problems w/ Anesthesia, Motion Sickness Additional Past Anesthesia/Blood Transfusion Reaction / Comment(s): "My heart stopped and I stopped breathing age 10 during a EGD/colonoscopy", was done at [facility] about 15 yrs ago. Past Psychological History: Anxiety, Depression, PTSD Smoking Status: Never smoker Past Alcohol Use History: None Reported Past Drug Use History: None Reported - Past Family History Mother Family Medical History: Cancer Father Family Medical History: Cancer General Exam Limitations: no limitations General appearance: alert, in no apparent distress Head exam: Present: atraumatic, normocephalic, normal inspection Respiratory exam: Present: decreased breath sounds, prolonged expiratory Cardiovascular Exam: Present: regular rate, normal rhythm, normal heart sounds. Absent: systolic murmur, diastolic murmur, rubs, gallop, clicks Neurological exam: Present: alert, oriented X3, CN II-XII intact Psychiatric exam: Present: normal affect, normal mood Skin exam: Present: warm, dry, intact, normal color. Absent: rash Course Vital Signs 04/30/23 04/30/23 04/30/23 17:27 21:36 21:47 Temperature 97.9 F Pulse Rate 86 88 90 Respiratory 26 H 26 H Rate Blood Pressure 115/82 O2 Sat by Pulse 98 Oximetry 04/30/23 22:55 Temperature Pulse Rate 80 Respiratory 20 Rate Blood Pressure 103/77 O2 Sat by Pulse 100 Oximetry Medical Decision Making - Medical Decision Making This is a 33-year-old male who presents to the emergency department for coughing and shortness of breath. Was pt. sent in by a medical professional or institution? @ -His PCP Did you speak to anyone other than the patient for history? @ -No Did you review nursing and triage notes? @ -Yes, and I agree, it is accurate with regards to the patient's symptoms. Were old charts reviewed? @ -No Differential Diagnosis? @ -Differential Dyspnea: Coronary syndrome, arrhythmia, tamponade, asthma, COPD, pulmonary embolism, pneumonia, pneumothorax, pulmonary effusion, anaphylaxis, diabetic ketoacidosis, flailed chest, pulmonary contusion, diaphragmatic rupture, anemia, neuromuscular, this is not meant to be an all-inclusive list. EKG interpreted by me (3pts min.)? @ -EKG interpreted by me demonstrating the following: Sinus rhythm. Ventricular rate 86 bpm, MI interval 118 ms, QRS duration 86 ms, QTC 385 ms. X-rays interpreted by me (1pt min.)? @ -Chest x-ray obtained, my interpretation identifies no localized consolidations or infiltrates. CT interpreted by me (1pt min.)? @ -Not obtained U/S interpreted by me (1pt. min.)? @ -Not obtained What testing was considered but not performed? (CT, X-rays, U/S, labs)? Why? @ -None What meds were considered but not given? Why? @ -None Did you discuss the management of the patient with other professionals? @ -No Did you reconcile home meds? @ -No Was smoking cessation discussed for >3mins.? @ -No Was critical care preformed (if so, how long)? @ -No Were there social determinants of health that impacted care today? How? (Homelessness, low income, unemployed, alcoholism, drug addiction, transportation, low edu. Level, literacy, decrease access to med. care, assisted, rehab)? @ -No Was there de-escalation of care discussed even if they declined? (Discuss DNR or withdrawal of care, Hospice)? @ -No What co-morbidities impacted this encounter? (DM, HTN, Smoking, COPD, CAD, Cancer, CVA, Hep., AIDS, mental health diagnosis, sleep apnea, morbid obesity)? @ -Asthma Was patient admitted / discharged? @ -Discharged. Lab work obtained and found to be nonactionable. Chest x-ray reveals no acute process. Covid, influenza, and RSV testing were negative. I did offer the patient admission for asthma exacerbation and failed outpatient management. However, he did feel markedly improved after a DuoNeb breathing treatment and requested discharge home. He was given a prescription for an additional 5 day course of steroids, DuoNeb breathing treatments, and clarithromycin. States that clarithromycin is preferred over azithromycin for him and is typically much more effective with asthma exacerbations and asthmatic bronchitis. He is instructed to avoid using the DuoNeb and albuterol breathing treatments together, and to use one or the other. Strict return parameters reviewed as well and he will otherwise follow up with his PCP. Undiagnosed new problem with uncertain prognosis? @ -None Drug Therapy requiring intensive monitoring for toxicity (Heparin, Nitro, Insulin, Cardizem)? @ -None Were any procedures done? @ -None Diagnosis/symptom? @ -Asthmatic bronchitis Acute, or Chronic, or Acute on Chronic? @ -Acute Uncomplicated (without systemic symptoms) or Complicated (systemic symptoms)? @ -Uncomplicated Side effects of treatment? @ -None Exacerbation, Progression, or Severe Exacerbation] @ -Not applicable Poses a threat to life or bodily function? @ -No Return precautions reviewed in depth, the patient is instructed to return to the emergency department with any new, worsening, or concerning symptoms. Patient verbalized understanding. This case was discussed in detail with the attending ED physician, Dr. Diaz. Presentation, findings, and treatment plan discussed in detail as well. - Lab Data Result diagrams: 04/30/23 21:13 04/30/23 21:13 Lab Results 04/30/23 04/30/23 04/30/23 Range/Units 21:13 21:13 21:13 WBC 8.2 (3.8-10.6) k/uL RBC 5.19 (4.30-5.90) m/uL Hgb 15.8 (13.0-17.5) gm/dL Hct 48.1 (39.0-53.0) % MCV 92.7 (80.0-100.0) fL MCH 30.5 (25.0-35.0) pg MCHC 32.9 (31.0-37.0) g/dL RDW 13.4 (11.5-15.5) % Plt Count 281 (150-450) k/uL MPV 7.8 Neutrophils % 61 % Lymphocytes % 29 % Monocytes % 6 % Eosinophils % 2 % Basophils % 0 % Neutrophils # 5.0 (1.3-7.7) k/uL Lymphocytes # 2.4 (1.0-4.8) k/uL Monocytes # 0.5 (0-1.0) k/uL Eosinophils # 0.2 (0-0.7) k/uL Basophils # 0.0 (0-0.2) k/uL PT 9.9 (9.0-12.0) sec INR 0.9 (<1.2) APTT 27.7 (22.0-30.0) sec D-Dimer 0.25 (<0.60) mg/L FEU Sodium 140 (137-145) mmol/L Potassium 4.2 (3.5-5.1) mmol/L Chloride 102 (98-107) mmol/L Carbon Dioxide 28 (22-30) mmol/L Anion Gap 10 mmol/L BUN 12 (9-20) mg/dL Creatinine 1.07 (0.66-1.25) mg/dL Est GFR (CKD-EPI)AfAm >90 (>60 ml/min/1.73 sqM) Est GFR (CKD-EPI)NonAf >90 (>60 ml/min/1.73 sqM) Glucose 78 (74-99) mg/dL Plasma Lactic Acid Félix (0.7-2.0) mmol/L Calcium 9.7 (8.4-10.2) mg/dL Total Bilirubin 0.7 (0.2-1.3) mg/dL AST 38 (17-59) U/L ALT 50 H (4-49) U/L Alkaline Phosphatase 74 (38-126) U/L Troponin I (0.000-0.034) ng/mL Total Protein 7.7 (6.3-8.2) g/dL Albumin 4.5 (3.5-5.0) g/dL Influenza Type A (PCR) (Not Detectd) Influenza Type B (PCR) (Not Detectd) RSV (PCR) (Not Detectd) SARS-CoV-2 (PCR) (Not Detectd) 09/11/23 09/11/23 09/11/23 Range/Units 21:13 21:13 21:17 WBC (3.8-10.6) k/uL RBC (4.30-5.90) m/uL Hgb (13.0-17.5) gm/dL Hct (39.0-53.0) % MCV (80.0-100.0) fL MCH (25.0-35.0) pg MCHC (31.0-37.0) g/dL RDW (11.5-15.5) % Plt Count (150-450) k/uL MPV Neutrophils % % Lymphocytes % % Monocytes % % Eosinophils % % Basophils % % Neutrophils # (1.3-7.7) k/uL Lymphocytes # (1.0-4.8) k/uL Monocytes # (0-1.0) k/uL Eosinophils # (0-0.7) k/uL Basophils # (0-0.2) k/uL PT (9.0-12.0) sec INR (<1.2) APTT (22.0-30.0) sec D-Dimer (<0.60) mg/L FEU Sodium (137-145) mmol/L Potassium (3.5-5.1) mmol/L Chloride (98-107) mmol/L Carbon Dioxide (22-30) mmol/L Anion Gap mmol/L BUN (9-20) mg/dL Creatinine (0.66-1.25) mg/dL Est GFR (CKD-EPI)AfAm (>60 ml/min/1.73 sqM) Est GFR (CKD-EPI)NonAf (>60 ml/min/1.73 sqM) Glucose (74-99) mg/dL Plasma Lactic Acid Félix 1.3 (0.7-2.0) mmol/L Calcium (8.4-10.2) mg/dL Total Bilirubin (0.2-1.3) mg/dL AST (17-59) U/L ALT (4-49) U/L Alkaline Phosphatase (38-126) U/L Troponin I <0.012 (0.000-0.034) ng/mL Total Protein (6.3-8.2) g/dL Albumin (3.5-5.0) g/dL Influenza Type A (PCR) Not Detected (Not Detectd) Influenza Type B (PCR) Not Detected (Not Detectd) RSV (PCR) Not Detected (Not Detectd) SARS-CoV-2 (PCR) Not Detected (Not Detectd) - Radiology Data Radiology results: report reviewed, image reviewed Disposition Clinical Impression: Asthmatic bronchitis Disposition: HOME SELF-CARE Instructions (If sedation given, give patient instructions): Acute Bronchitis (ED) Additional Instructions: Return to the emergency department with any new, worsening, or concerning symptoms. Take the antibiotic as prescribed for 7 days. Take the prednisone daily for 5 days. You can use the DuoNeb breathing treatments every 4-6 hours as needed. Use either this or the albuterol breathing treatments, do not use them together. Follow up with your primary care provider in 1-2 days. Prescriptions: Clarithromycin [Biaxin] 500 mg PO BID 7 Days #14 tab Ipratropium-Albuterol Nebulize [Duoneb 0.5 mg-3 mg/3 ml Soln] 3 ml INHALATION Q4-6H PRN #90 ml PRN Reason: Shortness Of Breath predniSONE 50 mg PO DAILY 5 Days #5 tab Is patient prescribed a controlled substance at d/c from ED?: No Referrals: Breanna Mao MD [Primary Care Provider] - 1-2 days
--- NOTE | 2023-04-30 19:33 | XR ---
EXAMINATION TYPE: XR chest 2V DATE OF EXAM: 04/30/2023 COMPARISON: 02/14/2023 HISTORY: 33 year-old male shortness of breath, difficulty breathing TECHNIQUE: PA and lateral views FINDINGS: The cardiomediastinal silhouette, aorta, and pulmonary vasculature are within normal limits. Mild hyp erinflation. Otherwise, lungs and pleural spaces are clear. IMPRESSION: Mild hyperinflation likely relates to depth of inspiration given patient's age rather than underlying emphysema. Correlate with smoking history. Otherwise, no acute cardiopulmonary process.
[2023-04-30] MEDS ORDERED: IPRATROPIUM-ALBUTEROL 3 ML NEB INHALATION STA (21:14)
[2023-04-30 21:51] LABS: ALT 50 U/L (4-49); AST 38 U/L (17-59); African American GFR (CKD) >90 (>60 ml/min/1.73 sqM); Albumin 4.5 g/dL (3.5-5.0); Alkaline Phosphatase 74 U/L (38-126); Anion Gap 10 mmol/L; Blood Urea Nitrogen 12 mg/dL (9-20); Calcium 9.7 mg/dL (8.4-10.2); Carbon Dioxide 28 mmol/L (22-30); Chloride 102 mmol/L (98-107); Glucose 78 mg/dL (74-99); Non-African American GFR(CKD) >90 (>60 ml/min/1.73 sqM); Potassium 4.2 mmol/L (3.5-5.1); Sodium 140 mmol/L (137-145); Total Bilirubin 0.7 mg/dL (0.2-1.3); Total Protein 7.7 g/dL (6.3-8.2)
[2023-04-30 21:55] LABS: INR 0.9 (<1.2); Partial Thromboplastin Time 27.7 sec (22.0-30.0); Prothrombin Time 9.9 sec (9.0-12.0)
[2023-04-30 22:12] LABS: Basophils % (A) 0 %; Eosinophils # (A) 0.2 k/uL (0-0.7); Eosinophils % (A) 2 %; HCT 48.1 % (39.0-53.0); HGB 15.8 gm/dL (13.0-17.5); Lymphocytes # (A) 2.4 k/uL (1.0-4.8); Lymphocytes % (A) 29 %; MCH 30.5 pg (25.0-35.0); MCHC 32.9 g/dL (31.0-37.0); MCV 92.7 fL (80.0-100.0); Mean Platelet Volume 7.8; Monocytes # (A) 0.5 k/uL (0-1.0); Monocytes % (A) 6 %; Neutrophils % (A) 61 %; Platelet Count 281 k/uL (150-450); RBC 5.19 m/uL (4.30-5.90); RDW 13.4 % (11.5-15.5); WBC 8.2 k/uL (3.8-10.6)
[2023-04-30] MEDS ORDERED: DEXAMETHASONE SOD PHOSPHATE 10 MG/ML 1 ML VIAL IM STA (22:30)
[2023-04-30 22:57] VITALS: BP 103/77; PULSE 80; RESP 20
== END 2023-04-30 22:56 | disposition home or self-care (01) ==
LOC: EC 17:22
DX: J45.909 Unspecified asthma, uncomplicated (principal); M19.90 Unspecified osteoarthritis, unspecified site; F41.9 Anxiety disorder, unspecified; F32.A Depression, unspecified; Z88.0 Allergy status to penicillin; Z91.012 Allergy to eggs; Z91.040 Latex allergy status; Z91.011 Allergy to milk products; Z88.1 Allergy status to other antibiotic agents; Z88.8 Allergy status to other drugs, medicaments and biological substances; Z79.899 Other long term (current) drug therapy; Z20.822 Contact with and (suspected) exposure to COVID-19
CPT/HCPCS: 36415; 94640; 93005; 85379; 80053; 83605; 84484; 85025; 85610; 85730; 87636; 71046; 99285; 96372; J1100

== ENCOUNTER 2023-12-05 15:48 | Emergency (ER) | payer OTHER ==
[2023-12-05 16:13] VITALS: TEMP 97.8
--- NOTE | 2023-12-05 16:30 | ED ---
General Adult HPI - General Chief complaint: Shortness of Breath Stated complaint: REJI/chest pain Time Seen by Provider: 12/05/23 16:13 Source: patient Mode of arrival: ambulatory Limitations: no limitations - History of Present Illness Initial comments: Dictation was produced using [employer] dictation software. please excuse any grammatical, word or spelling errors. Chief Complaint: 33-year-old male presents with chest pain and shortness of breath History of Present Illness: Patient 33-year-old male presents emergency department chest pain shortness of breath he reports that he has extensive history of asthma requiring hospitalizations in the past. He was intubated once as a child. Patient follows up with his primary care doctor however his primary care doctor is out of town. He was instructed to come to the emergency department by PCP office staff. Patient [place] any fever. Complains of some mild sharp chest pain to the left anterior chest. Denies any fever. Does complain of some night sweats. States that he has a mild cough nonproductive sputum. The ROS documented in this emergency department record has been reviewed and confirmed by me. Those systems with pertinent positive or negative responses have been documented in the HPI. All other systems are other negative and/or noncontributory. - Related Data Home Medications Medication Instructions Recorded Confirmed Dicyclomine [Bentyl] 10 mg PO TID 02/14/23 02/14/23 FLUoxetine HCL [PROzac] 20 mg PO DAILY 02/14/23 02/14/23 Famotidine 20 mg PO BID 02/14/23 02/14/23 Previous Rx's Medication Instructions Recorded Emtricitabine/Tenofovir (Tdf) 1 tab PO DAILY #28 tab 02/14/23 [Truvada 200 mg-300 mg Tablet] Raltegravir Potassium [Isentress] 400 mg PO BID #56 tablet 02/14/23 Dolutegravir Sodium [Tivicay] 50 mg PO DAILY #30 tablet 02/19/23 Clarithromycin [Biaxin] 500 mg PO BID 7 Days #14 tab 04/30/23 Ipratropium-Albuterol Nebulize 3 ml INHALATION Q4-6H PRN #90 ml 04/30/23 [Duoneb 0.5 mg-3 mg/3 ml Soln] predniSONE 50 mg PO DAILY 5 Days #5 tab 04/30/23 Allergies Allergy/AdvReac Type Severity Reaction Status Date / Time egg Allergy Rash/Hives Verified 04/30/23 17:31 latex Allergy Rash/Hives Verified 04/30/23 17:31 milk Allergy Anaphylaxis Verified 04/30/23 17:31 Penicillins Allergy Unknown Verified 04/30/23 17:31 antibiotics Allergy Unknown Uncoded 02/14/23 18:06 antihistamines Allergy Unknown Uncoded 04/30/23 17:31 Review of Systems ROS Statement: Those systems with pertinent positive or pertinent negative responses have been documented in the HPI. ROS Other: All systems not noted in ROS Statement are negative. Past Medical History Past Medical History: Asthma, GERD/Reflux, Osteoarthritis (OA), Pneumonia Additional Past Medical History / Comment(s): eosinophilic gastroenteritis, osteoporosis, kidney stones History of Any Multi-Drug Resistant Organisms: MRSA Date of last positivie culture/infection: 03/02/21 MDRO Source:: [place] Past Surgical History: Unable to Obtain Additional Past Surgical History / Comment(s): surgery for undescended testicle, EGD, colonocopy Past Anesthesia/Blood Transfusion Reactions: Previous Problems w/ Anesthesia, Motion Sickness Additional Past Anesthesia/Blood Transfusion Reaction / Comment(s): "My heart stopped and I stopped breathing age 10 during a EGD/colonoscopy", was done at [facility] about 15 yrs ago. Past Psychological History: Anxiety, Depression, PTSD Smoking Status: Never smoker Past Alcohol Use History: None Reported Past Drug Use History: None Reported - Past Family History Mother Family Medical History: Cancer Father Family Medical History: Cancer General Exam - General Exam Comments Initial Comments: PHYSICAL EXAM: General Impression: Alert and oriented x3, not in acute distress HEENT: Normocephalic atraumatic, extra-ocular movements intact, pupils equal and reactive to light bilaterally, mucous membranes moist. Cardiovascular: Heart regular rate and rhythm Chest: Able to complete full sentences, no retractions, no tachypnea, clear to auscultation bilaterally Abdomen: abdomen soft, non-tender, non-distended, no organomegaly Musculoskeletal: Pulses present and equal in all extremities, no peripheral edema Motor: no focal deficits noted Neurological: CN II-XII grossly intact, no focal motor or sensory deficits noted Skin: Intact with no visualized rashes Psych: Mildly anxious Limitations: no limitations Course Vital Signs 12/05/23 16:07 Temperature 97.8 F Pulse Rate 95 Respiratory 16 Rate Blood Pressure 104/74 O2 Sat by Pulse 99 Oximetry EKG Findings - EKG Comments: EKG Findings:: My EKG interpretation: Ventricular rate 83, sinus rhythm,. 129, cures 96, QTc 397. No NM prolongation, no QTC prolongation, no ST or T-wave changes noted. Overall, this EKG is unremarkable Medical Decision Making - Medical Decision Making Was pt. sent in by a medical professional or institution ([facility], [employer], urgent care, hospital, or fdc...) When possible be specific @ -No Did you speak to anyone other than the patient for history (EMS, parent, family, police, friend...)? What history was obtained from this source @ -No Did you review nursing and triage notes (agree or disagree)? Why? @ -I reviewed and agree with nursing and triage notes Were old charts reviewed (outside hosp., previous admission, EMS record, old EKG, old radiological studies, urgent care reports/EKG's, fdc records)? Report findings @ -No old charts were reviewed Differential Diagnosis (chest pain, altered mental status, abdominal pain women, abdominal pain men, vaginal bleeding, musculoskeletal, weakness, fever, dyspnea, syncope, headache, dizziness, GI bleed, back pain, seizure, CVA, palpatations, mental health)? @ -Differential Chest Pain: Stable Angina, Unstable Angina, STEMI, NSTEMI Aortic Dissection, Pneumothorax, Musculoskeletal, Esophageal Spasm GERD, Cholecystitis, Pancreatitis, Zoster, this is not meant to be an all-inclusive list. EKG interpreted by me (3pts min.). @ - See above X-rays interpreted by me (1pt min.). @ -Chest x-ray is nonacute CT interpreted by me (1pt min.). @ -None done U/S interpreted by me (1pt. min.). @ -None done What testing was considered but not performed or refused? (CT, X-rays, U/S, labs)? Why? @ -None What meds were considered but not given or refused? Why? @ -None Did you discuss the management of the patient with other professionals (professionals i.e. [facility], [employer], lab, RT, psych nurse, social work faculty member, lead pourer, teacher, humane officer, pillowcase turner)? Give summary @ -No Was smoking cessation discussed for >3mins.? @ -No Was critical care preformed (if so, how long)? @ -No Were there social determinants of health that impacted care today? How? (Homelessness, low income, unemployed, alcoholism, drug addiction, transportation, low edu. Level, literacy, decrease access to med. care, correction, rehab)? @ -No Was there de-escalation of care discussed even if they declined (Discuss DNR or withdrawal of care, Hospice)? DNR status @ -No What co-morbidities impacted this encounter? (DM, HTN, Smoking, COPD, CAD, Cancer, CVA, ARF, Chemo, Hep., AIDS, mental health diagnosis, sleep apnea, morbid obesity)? @ -None Was patient admitted / discharged? Hospital course, mention meds given and route, prescriptions, significant lab abnormalities, going to OR and other pertinent info. @ -33-year-old male with past medical history of asthma presents to the ER for atypical chest pain with typical features. Vital signs upon arrival are within acceptable limits. Patient states that his pain is worse since he has been having some vomiting episodes. Laboratory evaluation obtained. Labs are unremarkable. D-dimer is normal. Troponin is negative. Patient given GI cocktail with improvement of symptoms. Patient has low heart score. Patient monitored in the emergency department for approximately 3 hours. Reevaluated bedside at 6:40 PM on to be stable condition. Patient will be discharged. Undiagnosed new problem with uncertain prognosis? @ -No Drug Therapy requiring intensive monitoring for toxicity (Heparin, Nitro, Insulin, Cardizem)? @ -No Were any procedures done? @ -No Diagnosis/symptom? Acute, or Chronic, or Acute on Chronic? Uncomplicated (without systemic symptoms) or Complicated (systemic symptoms)? @ -Chest pain Side effects of treatment? @ -No Exacerbation, Progression, or Severe Exacerbation? @ -No Poses a threat to life or bodily function? How? (Chest pain, [place], [place], pneumonia, PE, COPD, DKA, ARF, appy, cholecystitis, CVA, Diverticulitis, Homicidal, Suicidal, threat to staff... and all critical care pts) @ -No - Lab Data Result diagrams: 12/05/23 16:54 12/05/23 16:54 Lab Results 12/05/23 12/05/23 12/05/23 Range/Units 16:54 16:54 16:54 WBC 6.6 (3.8-10.6) k/uL RBC 5.38 (4.30-5.90) m/uL Hgb 15.8 (13.0-17.5) gm/dL Hct 47.9 (39.0-53.0) % MCV 89.1 (80.0-100.0) fL MCH 29.3 (25.0-35.0) pg MCHC 32.9 (31.0-37.0) g/dL RDW 12.9 (11.5-15.5) % Plt Count 317 (150-450) k/uL MPV 7.8 Neutrophils % 53 % Lymphocytes % 34 % Monocytes % 5 % Eosinophils % 6 % Basophils % 1 % Neutrophils # 3.5 (1.3-7.7) k/uL Lymphocytes # 2.2 (1.0-4.8) k/uL Monocytes # 0.3 (0-1.0) k/uL Eosinophils # 0.4 (0-0.7) k/uL Basophils # 0.1 (0-0.2) k/uL D-Dimer <0.17 (<0.60) mg/L FEU Sodium 139 (137-145) mmol/L Potassium 4.0 (3.5-5.1) mmol/L Chloride 108 H (98-107) mmol/L Carbon Dioxide 18 L (22-30) mmol/L Anion Gap 13 mmol/L BUN 10 (9-20) mg/dL Creatinine 0.99 (0.66-1.25) mg/dL Est GFR (CKD-EPI)AfAm >90 (>60 ml/min/1.73 sqM) Est GFR (CKD-EPI)NonAf >90 (>60 ml/min/1.73 sqM) Glucose 94 (74-99) mg/dL Calcium 9.4 (8.4-10.2) mg/dL Troponin I (0.000-0.034) ng/mL 12/05/23 Range/Units 16:54 WBC (3.8-10.6) k/uL RBC (4.30-5.90) m/uL Hgb (13.0-17.5) gm/dL Hct (39.0-53.0) % MCV (80.0-100.0) fL MCH (25.0-35.0) pg MCHC (31.0-37.0) g/dL RDW (11.5-15.5) % Plt Count (150-450) k/uL MPV Neutrophils % % Lymphocytes % % Monocytes % % Eosinophils % % Basophils % % Neutrophils # (1.3-7.7) k/uL Lymphocytes # (1.0-4.8) k/uL Monocytes # (0-1.0) k/uL Eosinophils # (0-0.7) k/uL Basophils # (0-0.2) k/uL D-Dimer (<0.60) mg/L FEU Sodium (137-145) mmol/L Potassium (3.5-5.1) mmol/L Chloride (98-107) mmol/L Carbon Dioxide (22-30) mmol/L Anion Gap mmol/L BUN (9-20) mg/dL Creatinine (0.66-1.25) mg/dL Est GFR (CKD-EPI)AfAm (>60 ml/min/1.73 sqM) Est GFR (CKD-EPI)NonAf (>60 ml/min/1.73 sqM) Glucose (74-99) mg/dL Calcium (8.4-10.2) mg/dL Troponin I <0.012 (0.000-0.034) ng/mL Disposition Clinical Impression: Chest pain Disposition: HOME SELF-CARE Condition: Good Instructions (If sedation given, give patient instructions): Chest Pain (ED) Is patient prescribed a controlled substance at d/c from ED?: No Referrals: Breanna Mao MD [Primary Care Provider] - 1-2 days Time of Disposition: 18:40
[2023-12-05] MEDS: DEXAMETHASONE SOD PHOSPHATE 10 MG/ML 1 ML VIAL IV STA (16:58)
[2023-12-05 17:09] LABS: Basophils # (A) 0.1 k/uL (0-0.2); Basophils % (A) 1 %; Eosinophils # (A) 0.4 k/uL (0-0.7); Eosinophils % (A) 6 %; HCT 47.9 % (39.0-53.0); HGB 15.8 gm/dL (13.0-17.5); Lymphocytes # (A) 2.2 k/uL (1.0-4.8); Lymphocytes % (A) 34 %; MCH 29.3 pg (25.0-35.0); MCHC 32.9 g/dL (31.0-37.0); MCV 89.1 fL (80.0-100.0); Mean Platelet Volume 7.8; Monocytes # (A) 0.3 k/uL (0-1.0); Monocytes % (A) 5 %; Neutrophils # (A) 3.5 k/uL (1.3-7.7); Neutrophils % (A) 53 %; Platelet Count 317 k/uL (150-450); RBC 5.38 m/uL (4.30-5.90); RDW 12.9 % (11.5-15.5); WBC 6.6 k/uL (3.8-10.6)
--- NOTE | 2023-12-05 17:22 | XR ---
EXAMINATION TYPE: XR chest 2V DATE OF EXAM: 12/05/2023 5:08 PM CLINICAL INDICATION:Male, 33 years old with history of chest pain, dyspnea; [facility] COMPARISON: None TECHNIQUE: XR chest 2V Frontal and lateral views of the chest. FINDINGS: Lungs/Pleura: There is no evidence of pleural effusion, focal consolidation, or pneumothorax. Pulmonary vascularity: Unremarkable. Heart/mediastinum: Cardiomediastinal silhouette is unremarkable. Musculoskeletal: No acute osseous pathology. Other findings: None IMPRESSION: No acute cardiopulmonary disease/process.
[2023-12-05 17:26] LABS: African American GFR (CKD) >90 (>60 ml/min/1.73 sqM); Anion Gap 13 mmol/L; Blood Urea Nitrogen 10 mg/dL (9-20); Calcium 9.4 mg/dL (8.4-10.2); Carbon Dioxide 18 mmol/L (22-30); Chloride 108 mmol/L (98-107); Glucose 94 mg/dL (74-99); Non-African American GFR(CKD) >90 (>60 ml/min/1.73 sqM); Sodium 139 mmol/L (137-145)
[2023-12-05] MEDS: KETOROLAC 15 MG/ML 1 ML VIAL IVP STA (17:51)
[2023-12-05] MEDS: MAG HYDROX/AL HYDROX/SIMETH 30 ML, HYOSCYAMINE ELIXIR 10 ML, LIDOCAINE VISCOUS 2% 10 ML PO STA ×2 (17:54→18:27)
[2023-12-05 19:22] VITALS: BP 117/74; PULSE 78; RESP 18
== END 2023-12-05 19:10 | disposition home or self-care (01) ==
LOC: EC 15:48
DX: R07.89 Other chest pain (principal); Z91.012 Allergy to eggs; Z91.040 Latex allergy status; Z88.0 Allergy status to penicillin; Z88.1 Allergy status to other antibiotic agents
CPT/HCPCS: 36415; 93005; 85379; 80048; 84484; 85025; 71046; 99285; 96374; 96375; J1100; J1885

== ENCOUNTER 2023-12-16 21:39 | Emergency (ER) | payer OTHER ==
[2023-12-16 22:04] VITALS: RESP 20; TEMP 98.2
[2023-12-16] MEDS: ONDANSETRON ODT 4 MG TAB PO STA (23:01)
[2023-12-16] MEDS: dexAMETHasone 4 MG TAB PO STA (23:01)
[2023-12-17] MEDS: IPRATROPIUM-ALBUTEROL 3 ML NEB INHALATION STA (00:12)
--- NOTE | 2023-12-17 01:01 | ED ---
URI HPI - General Chief Complaint: Upper Respiratory Infection Stated Complaint: cough REJI Time Seen by Provider: 12/16/23 21:45 Source: patient Mode of arrival: ambulatory - History of Present Illness Initial Comments: 33-year-old male presents emergency department with upper respiratory symptoms. Patient states for the past 3 weeks he has had a productive cough. He is producing green sputum. He does have a history of asthma. States he has been using his inhalers as directed but continues to be short of breath. He called his primary care office who recommended that he come to the emergency department for evaluation. He was originally here 3 weeks ago and was evaluated. No antibiotic use. He has been intubated once for his breathing as a child. He admits to fevers. Denies sick contacts. No ear pain or sore throat. No other alleviating, precipitating or modifying factors - Related Data Home Medications Medication Instructions Recorded Confirmed Dicyclomine [Bentyl] 10 mg PO TID 02/14/23 02/14/23 FLUoxetine HCL [PROzac] 20 mg PO DAILY 02/14/23 02/14/23 Famotidine 20 mg PO BID 02/14/23 02/14/23 Previous Rx's Medication Instructions Recorded Emtricitabine/Tenofovir (Tdf) 1 tab PO DAILY #28 tab 02/14/23 [Truvada 200 mg-300 mg Tablet] Raltegravir Potassium [Isentress] 400 mg PO BID #56 tablet 02/14/23 Dolutegravir Sodium [Tivicay] 50 mg PO DAILY #30 tablet 02/19/23 Clarithromycin [Biaxin] 500 mg PO BID 7 Days #14 tab 04/30/23 Ipratropium-Albuterol Nebulize 3 ml INHALATION Q4-6H PRN #90 ml 04/30/23 [Duoneb 0.5 mg-3 mg/3 ml Soln] predniSONE 50 mg PO DAILY 5 Days #5 tab 04/30/23 Doxycycline Hyclate 100 mg PO BID 1 Days #14 tab 12/17/23 methylPREDNISolone Dose Pack 4 mg PO DIRECTED #21 tab 12/17/23 [Medrol Dose Pack] predniSONE 60 mg PO DAILY #30 tab 12/23/23 Allergies Allergy/AdvReac Type Severity Reaction Status Date / Time egg Allergy Rash/Hives Verified 12/23/23 04:04 latex Allergy Rash/Hives Verified 12/23/23 04:04 milk Allergy Anaphylaxis Verified 12/23/23 04:04 Penicillins Allergy Unknown Verified 12/23/23 04:04 antibiotics Allergy Unknown Uncoded 12/23/23 04:04 antihistamines Allergy Unknown Uncoded 12/23/23 04:04 Review of Systems ROS Statement: Those systems with pertinent positive or pertinent negative responses have been documented in the HPI. ROS Other: All systems not noted in ROS Statement are negative. Past Medical History Past Medical History: Asthma, GERD/Reflux, Osteoarthritis (OA), Pneumonia Additional Past Medical History / Comment(s): eosinophilic gastroenteritis, osteoporosis, kidney stones History of Any Multi-Drug Resistant Organisms: MRSA Date of last positivie culture/infection: 03/02/21 MDRO Source:: [place] Past Surgical History: Unable to Obtain Additional Past Surgical History / Comment(s): surgery for undescended testicle, EGD, colonocopy Past Anesthesia/Blood Transfusion Reactions: Previous Problems w/ Anesthesia, Motion Sickness Additional Past Anesthesia/Blood Transfusion Reaction / Comment(s): "My heart stopped and I stopped breathing age 10 during a EGD/colonoscopy", was done at [facility] about 15 yrs ago. Past Psychological History: Anxiety, Depression, PTSD Smoking Status: Never smoker Past Alcohol Use History: Rare Past Drug Use History: None Reported - Past Family History Mother Family Medical History: Cancer Father Family Medical History: Cancer General Exam General appearance: alert, in no apparent distress Head exam: Present: atraumatic, normocephalic, normal inspection Eye exam: Present: normal appearance, PERRL, EOMI. Absent: scleral icterus, conjunctival injection, periorbital swelling ENT exam: Present: normal exam, mucous membranes moist Neck exam: Present: normal inspection. Absent: tenderness, meningismus, lymphadenopathy Respiratory exam: Present: normal lung sounds bilaterally. Absent: respiratory distress, wheezes, rales, rhonchi, stridor Cardiovascular Exam: Present: regular rate, normal rhythm, normal heart sounds. Absent: systolic murmur, diastolic murmur, rubs, gallop, clicks GI/Abdominal exam: Present: soft, normal bowel sounds. Absent: distended, tenderness, guarding, rebound, rigid Extremities exam: Present: normal inspection, full ROM, normal capillary refill. Absent: tenderness, pedal edema, joint swelling, calf tenderness Back exam: Present: normal inspection Neurological exam: Present: alert, oriented X3, CN II-XII intact Psychiatric exam: Present: normal affect, normal mood Skin exam: Present: warm, dry, intact, normal color. Absent: rash Course Vital Signs 12/16/23 12/17/23 12/17/23 21:40 00:12 00:23 Temperature 98.2 F Pulse Rate 101 H 90 92 Respiratory 20 Rate Blood Pressure 112/74 O2 Sat by Pulse 98 Oximetry 12/17/23 01:11 Temperature Pulse Rate 107 H Respiratory 20 Rate Blood Pressure 112/82 O2 Sat by Pulse 98 Oximetry Medical Decision Making - Medical Decision Making Was pt. sent in by a medical professional or institution (, PA, MOVE COORDINATOR, urgent care, hospital, or prison...) When possible be specific @ -No Did you speak to anyone other than the patient for history (EMS, parent, family, police, friend...)? What history was obtained from this source @ -No Did you review nursing and triage notes (agree or disagree)? Why? @ -I reviewed and agree with nursing and triage notes Were old charts reviewed (outside hosp., previous admission, EMS record, old EKG, old radiological studies, urgent care reports/EKG's, prison records)? Report findings @ -I reviewed patient's ED visit from 3 weeks ago Differential Diagnosis (chest pain, altered mental status, abdominal pain women, abdominal pain men, vaginal bleeding, weakness, fever, dyspnea, syncope, headache, dizziness, GI bleed, back pain, seizure, CVA, palpatations, mental health, musculoskeletal)? @ -Differential Dyspnea: Coronary syndrome, arrhythmia, tamponade, asthma, COPD, pulmonary embolism, pneumonia, pneumothorax, pulmonary effusion, anaphylaxis, diabetic ketoacidosis, flailed chest, pulmonary contusion, diaphragmatic rupture, anemia, neur omuscular, this is not meant to be an all-inclusive list. EKG interpreted by me (3pts min.). @ -Not done X-rays interpreted by me (1pt min.). @ -Yes and patient does have developing infiltrate right lower lung base which was not seen on previous chest x-ray CT interpreted by me (1pt min.). @ -None done U/S interpreted by me (1pt. min.). @ -None done What testing was considered but not performed or refused? (CT, X-rays, U/S, labs)? Why? @ -None What meds were considered but not given or refused? Why? @ -None Did you discuss the management of the patient with other professionals (smita dickey ino [place], PA, MOVE COORDINATOR, lab, RT, psych nurse, director of social work, auditing control clerk, teacher, national insurance officer, case managers)? Give summary @ -No Was smoking cessation discussed for >3mins.? @ -No Was critical care preformed (if so, how long)? @ -No Were there social determinants of health that impacted care today? How? (Homelessness, low income, unemployed, alcoholism, drug addiction, transportation, low edu. Level, literacy, decrease access to med. care, senior care, rehab)? @ -No Was there de-escalation of care discussed even if they declined (Discuss DNR or withdrawal of care, Hospice)? DNR status @ -No What co-morbidities impacted this encounter? (DM, HTN, Smoking, COPD, CAD, Cancer, CVA, ARF, Chemo, Hep., AIDS, mental health diagnosis, sleep apnea, morbid obesity)? @ -Asthma Was patient admitted / discharged? Hospital course, mention meds given and route, prescriptions, significant lab abnormalities, going to OR and other pertinent info. @ -Upon arrival patient was seen and evaluated in room 33. Thorough history and physical exam was performed. Chest x-ray was performed which does demonstrate developing infiltrate right lower base. Patient was given a breathing treatments and initiated on antibiotics and steroids. Patient will take the medications as directed and follow-up with his doctor. Return for any new or worsening symptoms. Patient discharged in stable condition Undiagnosed new problem with uncertain prognosis? @ -No Drug Therapy requiring intensive monitoring for toxicity (Heparin, Nitro, Insulin, Cardizem)? @ -No Were any procedures done? @ -No Diagnosis/symptom? @ -Acute cough, acute pneumonia Acute, or Chronic, or Acute on Chronic? @ -Acute Uncomplicated (without systemic symptoms) or Complicated (systemic symptoms)? @ -Complicated Side effects of treatment? @ -No Exacerbation, Progression, or Severe Exacerbation? @ -No Poses a threat to life or bodily function? How? (Chest pain, [place], [place], pneumonia, PE, COPD, DKA, ARF, appy, cholecystitis, CVA, Diverticulitis, Homicidal, Suicidal, threat to staff... and all critical care pts) @ -No - Lab Data Lab Results 12/16/23 Range/Units 23:04 Influenza Type A (PCR) Not Detected (Not Detectd) Influenza Type B (PCR) Not Detected (Not Detectd) RSV (PCR) Not Detected (Not Detectd) SARS-CoV-2 (PCR) Not Detected (Not Detectd) Disposition Clinical Impression: Pneumonia, Asthma Disposition: HOME SELF-CARE Condition: Stable Instructions (If sedation given, give patient instructions): Bacterial Pneumonia (ED) Additional Instructions: Please take the antibiotics as directed. Continue using your breathing treatments. Follow-up with your doctor and return for any new or worsening symptoms, especially if the antibiotics are not working within 72 hours Prescriptions: Doxycycline Hyclate 100 mg PO BID 1 Days #14 tab methylPREDNISolone Dose Pack [Medrol Dose Pack] 4 mg PO DIRECTED #21 tab Is patient prescribed a controlled substance at d/c from ED?: No Referrals: Breanna Mao MD [Primary Care Provider] - 1-2 days Time of Disposition: 01:01
[2023-12-17] MEDS: DOXYCYCLINE 100 MG CAP PO STA (01:04)
--- NOTE | 2023-12-17 01:04 | XR ---
EXAM: XR Chest, 2 Views CLINICAL HISTORY: ITS.REASON XR Reason: shortness of breath TECHNIQUE: Frontal and lateral views of the chest. COMPARISON: 12/05/2023. FINDINGS: Lungs: Unremarkable. No consolidative changes. Pleural space: Unremarkable. No pneumothorax. No pleural effusion. Heart: Heart is normal in size. No cardiomegaly. Mediastinum: Unremarkable. Normal mediastinal contour. Bones/joints: Osseous structures and soft tissues are unremarkable. No acute fracture. IMPRESSION: No active disease, unchanged.
[2023-12-17 02:53] VITALS: BP 112/82; PULSE 107
== END 2023-12-17 01:11 | disposition home or self-care (01) ==
LOC: EC 21:39
DX: J18.9 Pneumonia, unspecified organism (principal); J45.909 Unspecified asthma, uncomplicated; Z91.012 Allergy to eggs; Z91.040 Latex allergy status; Z91.011 Allergy to milk products; Z88.0 Allergy status to penicillin; Z88.8 Allergy status to other drugs, medicaments and biological substances
CPT/HCPCS: 94640; 87636; 71046; 99285; J8540

== ENCOUNTER 2023-12-23 03:46 | Emergency (ER) | payer OTHER ==
[2023-12-23 04:11] VITALS: RESP 18
[2023-12-23] MEDS: predniSONE 20 MG TAB PO STA (05:55)
[2023-12-23] MEDS: ALBUTEROL NEBULIZED 2.5 MG/3 ML INHALATION STA (06:11)
--- NOTE | 2023-12-23 06:31 | XR ---
EXAMINATION TYPE: XR chest 2V DATE OF EXAM: 12/23/2023 COMPARISON: 12/08/2023 HISTORY: Cough TECHNIQUE: Frontal and lateral views of the chest are obtained. FINDINGS: The interstitium is questionably mild prominent and unchanged compared to previous. The findings rais e a question interstitial pneumonia. There is no airspace consolidation. There is no pleural effusion or pneumothorax. The heart is normal in size. The osseous structures are intact IMPRESSION: Questionable interstitial prominence which is stable compared to previous. Findings rais e the question of possible interstitial pneumonia.
[2023-12-23 07:42] VITALS: BP 132/97; PULSE 88; TEMP 97.8
--- NOTE | 2024-02-24 05:58 | ED ---
General Adult HPI - General Chief complaint: Upper Respiratory Infection Stated complaint: REJI Time Seen by Provider: 12/23/23 05:18 Source: patient Mode of arrival: ambulatory Limitations: no limitations - History of Present Illness Initial comments: This patient is a 34-year-old man who presents to evaluation for cough and shortness of breath. Symptoms started a little bit over a week ago. The patient was seen and evaluated here, was diagnosed with pneumonia and given course of antibiotic but states he is not feeling much better. Currently no f madhu. He does have cough largely nonproductive and shortness of breath. Onset/Timin -: week(s) Severity scale (1-10): 0 Consistency: constant Improves with: none Worsens with: none Associated Symptoms: cough, shortness of breath Treatments Prior to Arrival: none - Related Data Home Medications Medication Instructions Recorded Confirmed Dicyclomine [Bentyl] 10 mg PO TID 02/14/23 02/14/23 FLUoxetine HCL [PROzac] 20 mg PO DAILY 02/14/23 02/14/23 Famotidine 20 mg PO BID 02/14/23 02/14/23 Previous Rx's Medication Instructions Recorded Emtricitabine/Tenofovir (Tdf) 1 tab PO DAILY #28 tab 02/14/23 [Truvada 200 mg-300 mg Tablet] Raltegravir Potassium [Isentress] 400 mg PO BID #56 tablet 02/14/23 Dolutegravir Sodium [Tivicay] 50 mg PO DAILY #30 tablet 02/19/23 Clarithromycin [Biaxin] 500 mg PO BID 7 Days #14 tab 04/30/23 Ipratropium-Albuterol Nebulize 3 ml INHALATION Q4-6H PRN #90 ml 04/30/23 [Duoneb 0.5 mg-3 mg/3 ml Soln] predniSONE 50 mg PO DAILY 5 Days #5 tab 04/30/23 Doxycycline Hyclate 100 mg PO BID 1 Days #14 tab 12/17/23 methylPREDNISolone Dose Pack 4 mg PO DIRECTED #21 tab 12/17/23 [Medrol Dose Pack] predniSONE 60 mg PO DAILY #30 tab 12/23/23 Allergies Allergy/AdvReac Type Severity Reaction Status Date / Time egg Allergy Rash/Hives Verified 12/23/23 04:04 latex Allergy Rash/Hives Verified 12/23/23 04:04 milk Allergy Anaphylaxis Verified 12/23/23 04:04 Penicillins Allergy Unknown Verified 12/23/23 04:04 antibiotics Allergy Unknown Uncoded 12/23/23 04:04 antihistamines Allergy Unknown Uncoded 12/23/23 04:04 Review of Systems ROS Statement: Those systems with pertinent positive or pertinent negative responses have been documented in the HPI. ROS Other: All systems not noted in ROS Statement are negative. Constitutional: Denies: fever, chills Respiratory: Reports: cough, dyspnea, wheezes. Denies: hemoptysis Cardiovascular: Denies: chest pain, palpitations, orthopnea, edema Gastrointestinal: Denies: abdominal pain, vomiting, diarrhea Genitourinary: Denies: hematuria Musculoskeletal: Denies: back pain Skin: Denies: rash Neurological: Denies: weakness Past Medical History Past Medical History: Asthma, GERD/Reflux, Osteoarthritis (OA), Pneumonia Additional Past Medical History / Comment(s): eosinophilic gastroenteritis, osteoporosis, kidney stones History of Any Multi-Drug Resistant Organisms: MRSA Date of last positivie culture/infection: 03/02/21 MDRO Source:: [place] Past Surgical History: Unable to Obtain Additional Past Surgical History / Comment(s): surgery for undescended testicle, EGD, colonocopy Past Anesthesia/Blood Transfusion Reactions: Previous Problems w/ Anesthesia, Motion Sickness Additional Past Anesthesia/Blood Transfusion Reaction / Comment(s): "My heart stopped and I stopped breathing age 10 during a EGD/colonoscopy", was done at [facility] about 15 yrs ago. Past Psychological History: Anxiety, Depression, PTSD Smoking Status: Never smoker Past Alcohol Use History: Rare Past Drug Use History: None Reported - Past Family History Mother Family Medical History: Cancer Father Family Medical History: Cancer General Exam Limitations: no limitations General appearance: alert, in no apparent distress Head exam: Present: atraumatic, normocephalic Eye exam: Present: normal appearance. Absent: scleral icterus, conjunctival injection ENT exam: Present: normal oropharynx Neck exam: Present: normal inspection Respiratory exam: Present: wheezes. Absent: respiratory distress, rales, rhonchi, stridor, accessory muscle use Cardiovascular Exam: Present: regular rate, normal rhythm, normal heart sounds. Absent: systolic murmur, diastolic murmur, rubs, gallop GI/Abdominal exam: Present: soft. Absent: distended, tenderness, guarding, rebound, rigid, mass Extremities exam: Present: normal inspection, normal capillary refill. Absent: pedal edema, calf tenderness Back exam: Present: normal inspection. Absent: CVA tenderness (R), CVA tenderness (L) Neurological exam: Present: alert Skin exam: Present: warm, dry, intact, normal color. Absent: rash Course Vital Signs 12/23/23 12/23/23 12/23/23 04:03 05:30 05:59 Temperature 98.6 F Pulse Rate 92 80 Respiratory 18 18 18 Rate Blood Pressure 120/78 110/85 O2 Sat by Pulse 98 98 Oximetry 12/23/23 12/23/23 12/23/23 06:11 06:18 07:12 Temperature 97.8 F Pulse Rate 80 82 88 Respiratory 18 Rate Blood Pressure 132/97 O2 Sat by Pulse 95 Oximetry Medical Decision Making - Medical Decision Making Please note that this is a replacement dictation the original appears to have been lost from the system. The patient had chest x-ray which I interpreted as showing diffuse interstitial findings consistent with viral pneumonia. No pneumothorax or congestive heart failure Was pt. sent in by a medical professional or institution (, PA, AUTOMOBILE MECHANIC MOTOR, urgent care, hospital, or [facility]...) When possible be specific @ -[No] Did you speak to anyone other than the patient for history (EMS, parent, family, police, friend...)? What history was obtained from this source @ -[No] Did you review nursing and triage notes (agree or disagree)? Why? @ -[I reviewed and agree with nursing and triage notes] Were old charts reviewed (outside hosp., previous admission, EMS record, old EKG, old radiological studies, urgent care reports/EKG's, [facility] records)? Report findings @ -[No old charts were reviewed] Differential Diagnosis (chest pain, altered mental status, abdominal pain women, abdominal pain men, vaginal bleeding, weakness, fever, dyspnea, syncope, headache, dizziness, GI bleed, back pain, seizure, CVA, palpatations, mental health, musculoskeletal)? @ -[Differential Dyspnea: Coronary syndrome, arrhythmia, tamponade, asthma, COPD, pulmonary embolism, pneumonia, pneumothorax, pulmonary effusion, anaphylaxis, diabetic ketoacidosis, flailed chest, pulmonary contusion, diaphragmatic rupture, anemia, neuromuscular, this is not meant to be an all-inclusive list. EKG interpreted by me (3pts min.). @ -[As above] X-rays interpreted by me (1pt min.). @ -[Interpreted as above CT interpreted by me (1pt min.). @ -[None done] U/S interpreted by me (1pt. min.). @ -[None done] What testing was considered but not performed or refused? (CT, X-rays, U/S, labs)? Why? @ -[None] What meds were considered but not given or refused? Why? @ -[None] Did you discuss the management of the patient with other professionals (professionals i.e. DrAlfredo, PA, AUTOMOBILE MECHANIC MOTOR, lab, RT, psych nurse, social sciences chair, item processor, teacher, plant protection officer, shelter case manager)? Give summary @ -[No] Was smoking cessation discussed for >3mins.? @ -[No] Was critical care preformed (if so, how long)? @ -[No] Were there social determinants of health that impacted care today? How? (Homelessness, low income, unemployed, alcoholism, drug addiction, transportation, low edu. Level, literacy, decrease access to med. care, [facility], rehab)? @ -[No] Was there de-escalation of care discussed even if they declined (Discuss DNR or withdrawal of care, Hospice)? DNR status @ -[No] What co-morbidities impacted this encounter? (DM, HTN, Smoking, COPD, CAD, Cancer, CVA, ARF, Chemo, Hep., AIDS, mental health diagnosis, sleep apnea, morbid obesity)? @ -[None] Was patient admitted / discharged? Hospital course, mention meds given and route, prescriptions, significant lab abnormalities, going to OR and other pertinent info. @ -[Patient had nebulized medications and did have relief of symptoms. Will discharge with course of steroid and inhaled medications and close follow-up. The patient did complete course of medication which would have covered atypical pneumonias and this does appear consistent with viral syndrome. Undiagnosed new problem with uncertain prognosis? @ -[No] Drug Therapy requiring intensive monitoring for toxicity (Heparin, Nitro, Insulin, Cardizem)? @ -[No] Were any procedures done? @ -[No] Diagnosis/symptom? @ -[Acute bronchitis/viral pneumonia Acute, or Chronic, or Acute on Chronic? @ -[Acute Uncomplicated (without systemic symptoms) or Complicated (systemic symptoms)? @ -[Uncomplicated Side effects of treatment? @ -[No] Exacerbation, Progression, or Severe Exacerbation? @ -[No] Poses a threat to life or bodily function? How? (Chest pain, [place], [place], pneumonia, PE, COPD, DKA, ARF, appy, cholecystitis, CVA, Diverticulitis, Homicidal, Suicidal, threat to staff... and all critical care pts) @ -[No] - Lab Data Lab Results 12/23/23 Range/Units 04:06 Influenza Type A (PCR) Not Detected (Not Detectd) Influenza Type B (PCR) Not Detected (Not Detectd) RSV (PCR) Not Detected (Not Detectd) SARS-CoV-2 (PCR) Not Detected (Not Detectd) Disposition Clinical Impression: Acute bronchitis Disposition: HOME SELF-CARE Condition: Good Prescriptions: predniSONE 60 mg PO DAILY #30 tab Is patient prescribed a controlled substance at d/c from ED?: No Referrals: Breanna Mao MD [Primary Care Provider] - 1-2 days
== END 2023-12-23 07:13 | disposition home or self-care (01) ==
LOC: EC 03:46
DX: J20.9 Acute bronchitis, unspecified (principal); Z88.0 Allergy status to penicillin; Z91.040 Latex allergy status; Z91.011 Allergy to milk products; Z91.012 Allergy to eggs; Z88.1 Allergy status to other antibiotic agents
CPT/HCPCS: 99284; 94640; 87636; 71046; 99285; J7512

== ENCOUNTER 2024-04-14 20:45 | Emergency (ER) | payer OTHER ==
[2024-04-14 20:49] VITALS: RESP 18
[2024-04-14] MEDS: DEXAMETHASONE SOD PHOSPHATE 10 MG/ML 1 ML VIAL IM STA (21:19)
[2024-04-14] MEDS: ALBUTEROL HFA INHALER INHALATION STA (21:19)
--- NOTE | 2024-04-14 21:22 | XR ---
EXAMINATION TYPE: XR chest 2V DATE OF EXAM: 04/14/2024 9:14 PM CLINICAL INDICATION:Male, 34 years old with history of sob; [facility] COMPARISON: Chest radiographs from 12/23/2023. TECHNIQUE: XR chest 2V Frontal view of the chest. FINDINGS: Lungs/Pleura: Mild interstitial prominence. There is no evidence of pleural effusion, focal consolida tion, or pneumothorax. Pulmonary vascularity: Unremarkable. Heart/mediastinum: Cardiomediastinal silhouette is unremarkable. Musculoskeletal: No acute osseous pathology. Other findings: None IMPRESSION: Mild interstitial prominence may relate to an acute infectious/inflammatory respiratory process. No c onsolidative changes.
--- NOTE | 2024-04-15 | ED ---
General Adult HPI - General Chief complaint: Upper Respiratory Infection Stated complaint: Covid +, SOB Time Seen by Provider: 04/14/24 20:55 Source: patient Mode of arrival: ambulatory Limitations: no limitations - History of Present Illness Initial comments: 34-year-old male with history of asthma presenting with chief complaint of shortness of breath. Patient tested positive for COVID at home. He has had cough and congestion as well as nausea and diarrhea. Taking his updraft treatments but is still having difficulty breathing. No chest pain. No abdominal pain. No vomiting. - Related Data Home Medications Medication Instructions Recorded Confirmed Dicyclomine [Bentyl] 10 mg PO TID 02/14/23 02/14/23 FLUoxetine HCL [PROzac] 20 mg PO DAILY 02/14/23 02/14/23 Famotidine 20 mg PO BID 02/14/23 02/14/23 Previous Rx's Medication Instructions Recorded Emtricitabine/Tenofovir (Tdf) 1 tab PO DAILY #28 tab 02/14/23 [Truvada 200 mg-300 mg Tablet] Raltegravir Potassium [Isentress] 400 mg PO BID #56 tablet 02/14/23 Dolutegravir Sodium [Tivicay] 50 mg PO DAILY #30 tablet 02/19/23 Clarithromycin [Biaxin] 500 mg PO BID 7 Days #14 tab 04/30/23 Ipratropium-Albuterol Nebulize 3 ml INHALATION Q4-6H PRN #90 ml 04/30/23 [Duoneb 0.5 mg-3 mg/3 ml Soln] predniSONE 50 mg PO DAILY 5 Days #5 tab 04/30/23 Doxycycline Hyclate 100 mg PO BID 1 Days #14 tab 12/17/23 methylPREDNISolone Dose Pack 4 mg PO DIRECTED #21 tab 12/17/23 [Medrol Dose Pack] predniSONE 60 mg PO DAILY #30 tab 12/23/23 Doxycycline [Vibramycin] 100 mg PO BID #14 capsule 03/22/24 Nirmatrelvir/Ritonavir [Paxlovid 1 each PO DAILY #1 pack 04/14/24 300-100 mg Dose Pack] predniSONE 50 mg PO DAILY 5 Days #5 tab 04/14/24 Allergies Allergy/AdvReac Type Severity Reaction Status Date / Time egg Allergy Rash/Hives Verified 04/14/24 20:50 latex Allergy Rash/Hives Verified 04/14/24 20:50 milk Allergy Anaphylaxis Verified 04/14/24 20:50 Penicillins Allergy Unknown Verified 04/14/24 20:50 antibiotics Allergy Unknown Uncoded 04/14/24 20:50 antihistamines Allergy Unknown Uncoded 04/14/24 20:50 Review of Systems ROS Statement: Those systems with pertinent positive or pertinent negative responses have been documented in the HPI. ROS Other: All systems not noted in ROS Statement are negative. Past Medical History Past Medical History: Asthma, GERD/Reflux, Osteoarthritis (OA), Pneumonia Additional Past Medical History / Comment(s): eosinophilic gastroenteritis, osteoporosis, kidney stones History of Any Multi-Drug Resistant Organisms: MRSA Date of last positivie culture/infection: 03/02/21 MDRO Source:: [place] Past Surgical History: Unable to Obtain Additional Past Surgical History / Comment(s): surgery for undescended testicle, EGD, colonocopy Past Anesthesia/Blood Transfusion Reactions: Previous Problems w/ Anesthesia, Motion Sickness Additional Past Anesthesia/Blood Transfusion Reaction / Comment(s): "My heart stopped and I stopped breathing age 10 during a EGD/colonoscopy", was done at [facility] about 15 yrs ago. Past Psychological History: Anxiety, Depression, PTSD Smoking Status: Never smoker Past Alcohol Use History: Rare Past Drug Use History: None Reported - Past Family History Mother Family Medical History: Cancer Father Family Medical History: Cancer General Exam Limitations: no limitations General appearance: alert, in no apparent distress Head exam: Present: atraumatic, normocephalic Eye exam: Present: normal appearance, EOMI ENT exam: Present: mucous membranes moist Neck exam: Present: normal inspection. Absent: meningismus Respiratory exam: Present: wheezes. Absent: respiratory distress, rales, rhonchi, stridor Cardiovascular Exam: Present: regular rate, normal rhythm, normal heart sounds. Absent: systolic murmur, diastolic murmur, rubs, gallop, clicks Neurological exam: Present: alert, oriented X3 Psychiatric exam: Present: normal affect, normal mood Skin exam: Present: warm, dry Course Vital Signs 04/14/24 04/14/24 04/15/24 20:46 21:22 00:14 Temperature 98.6 F 98.3 F Pulse Rate 82 78 Respiratory 18 18 18 Rate Blood Pressure 118/82 111/79 O2 Sat by Pulse 98 99 Oximetry Medical Decision Making - Medical Decision Making Was pt. sent in by a medical professional or institution ([facility] Ritchie, WASTE DISPOSAL PLANT OPERATOR, urgent care, hospital, or care home...) When possible be specific @ -No Did you speak to anyone other than the patient for history (EMS, parent, family, police, friend...)? What history was obtained from this source @ -No Did you review nursing and triage notes (agree or disagree)? Why? @ -I reviewed and agree with nursing and triage notes Were old charts reviewed (outside hosp., previous admission, EMS record, old EKG, old radiological studies, urgent care reports/EKG's, care home records)? Report findings @ -No old charts were reviewed Differential Diagnosis (chest pain, altered mental status, abdominal pain women, abdominal pain men, vaginal bleeding, weakness, fever, dyspnea, syncope, headache, dizziness, GI bleed, back pain, seizure, CVA, palpatations, mental health, musculoskeletal)? @ -MDM Differential Dyspnea: Coronary syndrome, arrhythmia, tamponade, asthma, COPD, pulmonary embolism, pneumonia, pneumothorax, pulmonary effusion, anaphylaxis, diabetic ketoacidosis, flailed chest, pulmonary contusion, diaphragmatic rupture, anemia, neuromuscular this is not meant to be an all-inclusive list. EKG interpreted by me (3pts min.). @ -As above X-rays interpreted by me (1pt min.). @ -Chest x-ray shows mild interstitial prominence may relate to an acute infectious/inflammatory respiratory process. No consolidative changes. CT interpreted by me (1pt min.). @ -None done U/S interpreted by me (1pt. min.). @ -None done What testing was considered but not performed or refused? (CT, X-rays, U/S, labs)? Why? @ -None What meds were considered but not given or refused? Why? @ -None Did you discuss the management of the patient with other professionals (professionals i.e. E[facility] Ritchie, W[employer] DIS[employer] PLANT OPERATOR, lab, RT, psych nurse, medical social worker, farm contractor, teacher, senior grants officer, director of casework services)? Give summary @ -No Was smoking cessation discussed for >3mins.? @ -No Was critical care preformed (if so, how long)? @ -No Were there social determinants of health that impacted care today? How? (Homelessness, low income, unemployed, alcoholism, drug addiction, transportation, low edu. Level, literacy, decrease access to med. care, fpc, rehab)? @ -No Was there de-escalation of care discussed even if they declined (Discuss DNR or withdrawal of care, Hospice)? DNR status @ -No What co-morbidities impacted this encounter? (DM, HTN, Smoking, COPD, CAD, Cancer, CVA, ARF, Chemo, Hep., AIDS, mental health diagnosis, sleep apnea, morbid obesity)? @ -None Was patient admitted / discharged? Hospital course, mention meds given and route, prescriptions, significant lab abnormalities, going to OR and other pertinent info. @ -34-year-old male presented with chief complaint of dyspnea cough congestion. Tested positive for COVID at home today. On exam wheezes are heard. He was given Decadron 10 mg IM and albuterol inhaler. He is positive for COVID here. Chest x-ray showed no consolidation. He reports improvement on reassessment. Educated on supportive management at home. He will continue using his inhalers and updraft treatments as needed. Prescribed Paxlovid and prednisone for COVID and asthma exacerbation. Discharged. Follow-up with PCP. Report back to ER with any new or worsening symptoms. Discussed return parameters and answered all questions. Patient conveyed verbal understanding and agreed to the plan. I discussed this case in detail with my attending Dr. Diaz Undiagnosed new problem with uncertain prognosis? @ -No Drug Therapy requiring intensive monitoring for toxicity (Heparin, Nitro, Insulin, Cardizem)? @ -No Were any procedures done? @ -No Diagnosis/symptom? @ -COVID, asthma exacerbation Acute, or Chronic, or Acute on Chronic? @ -Acute Uncomplicated (without systemic symptoms) or Complicated (systemic symptoms)? @ -Uncomplicated Side effects of treatment? @ -No Exacerbation, Progression, or Severe Exacerbation? @ -No, exacerbation Poses a threat to life or bodily function? How? (Chest pain, [place], [place], pneumonia, PE, COPD, DKA, ARF, appy, cholecystitis, CVA, Diverticulitis, Homicidal, Suicidal, threat to staff... and all critical care pts) @ -Potential but low likelihood at this time - Lab Data Lab Results 04/14/24 Range/Units 20:49 Influenza Type A (PCR) Not Detected (Not Detectd) Influenza Type B (PCR) Not Detected (Not Detectd) RSV (PCR) Not Detected (Not Detectd) SARS-CoV-2 (PCR) Detected A (Not Detectd) Disposition Clinical Impression: COVID-19 Disposition: HOME SELF-CARE Condition: Good Instructions (If sedation given, give patient instructions): COVID-19 (Coronavirus Disease 2019) (ED) Additional Instructions: Follow-up with PCP. Report back to ER with any new or worsening symptoms. Take your inhaler and updraft treatments as prescribed. Take medication as prescribed. Prescriptions: Nirmatrelvir/Ritonavir [Paxlovid 300-100 mg Dose Pack] 1 each PO DAILY #1 pack predniSONE 50 mg PO DAILY 5 Days #5 tab Is patient prescribed a controlled substance at d/c from ED?: No Referrals: Breanna Mao MD [Primary Care Provider] - 1-2 days Time of Disposition: 00:00
[2024-04-15 00:18] VITALS: BP 111/79; PULSE 78; TEMP 98.3
== END 2024-04-15 00:14 | disposition home or self-care (01) ==
LOC: EC 20:45
DX: U07.1 COVID-19 (principal); J45.901 Unspecified asthma with (acute) exacerbation; Z88.0 Allergy status to penicillin; Z88.1 Allergy status to other antibiotic agents; Z88.8 Allergy status to other drugs, medicaments and biological substances; Z91.040 Latex allergy status; Z91.012 Allergy to eggs; Z91.011 Allergy to milk products
CPT/HCPCS: 87636; 71046; 99285; 96372; J1100

== ENCOUNTER 2024-05-12 01:59 | Emergency (ER) | payer OTHER ==
[2024-05-12 02:07] VITALS: TEMP 98.3
--- NOTE | 2024-05-12 03:33 | ED ---
Male Urogenital HPI - General Chief complaint: Urogenital Stated complaint: ABD Pain Time Seen by Provider: 05/12/24 03:28 Source: patient, RN notes reviewed Mode of arrival: ambulatory Limitations: no limitations - History of Present Illness Initial comments: 34-year-old male presenting to the ER for STD testing. Patient states he was exposed to an STD by his female partner and would like to be tested and treated for STDs today. States he has been having some dysuria, however denies any penile discharge, penile lesions, testicular pain or swelling, abdominal pain, fevers, chills. - Related Data Home Medications Medication Instructions Recorded Confirmed Dicyclomine [Bentyl] 10 mg PO TID 02/14/23 02/14/23 FLUoxetine HCL [PROzac] 20 mg PO DAILY 02/14/23 02/14/23 Famotidine 20 mg PO BID 02/14/23 02/14/23 Previous Rx's Medication Instructions Recorded Emtricitabine/Tenofovir (Tdf) 1 tab PO DAILY #28 tab 02/14/23 [Truvada 200 mg-300 mg Tablet] Raltegravir Potassium [Isentress] 400 mg PO BID #56 tablet 02/14/23 Dolutegravir Sodium [Tivicay] 50 mg PO DAILY #30 tablet 02/19/23 Clarithromycin [Biaxin] 500 mg PO BID 7 Days #14 tab 04/30/23 Ipratropium-Albuterol Nebulize 3 ml INHALATION Q4-6H PRN #90 ml 04/30/23 [Duoneb 0.5 mg-3 mg/3 ml Soln] predniSONE 50 mg PO DAILY 5 Days #5 tab 04/30/23 Doxycycline Hyclate 100 mg PO BID 1 Days #14 tab 12/17/23 methylPREDNISolone Dose Pack 4 mg PO DIRECTED #21 tab 12/17/23 [Medrol Dose Pack] predniSONE 60 mg PO DAILY #30 tab 12/23/23 Doxycycline [Vibramycin] 100 mg PO BID #14 capsule 03/22/24 Nirmatrelvir/Ritonavir [Paxlovid 1 each PO DAILY #1 pack 04/14/24 300-100 mg Dose Pack] predniSONE 50 mg PO DAILY 5 Days #5 tab 04/14/24 Doxycycline [Vibramycin] 100 mg PO BID 7 Days #14 capsule 05/12/24 Allergies Allergy/AdvReac Type Severity Reaction Status Date / Time egg Allergy Rash/Hives Verified 05/12/24 02:07 latex Allergy Rash/Hives Verified 05/12/24 02:07 milk Allergy Anaphylaxis Verified 05/12/24 02:07 Penicillins Allergy Unknown Verified 05/12/24 02:07 antibiotics Allergy Unknown Uncoded 05/12/24 02:07 antihistamines Allergy Unknown Uncoded 05/12/24 02:07 Review of Systems ROS Statement: Those systems with pertinent positive or pertinent negative responses have been documented in the HPI. ROS Other: All systems not noted in ROS Statement are negative. Past Medical History Past Medical History: Asthma, GERD/Reflux, Osteoarthritis (OA), Pneumonia Additional Past Medical History / Comment(s): eosinophilic gastroenteritis, osteoporosis, kidney stones History of Any Multi-Drug Resistant Organisms: MRSA Date of last positivie culture/infection: 03/02/21 MDRO Source:: [place] Past Surgical History: Unable to Obtain Additional Past Surgical History / Comment(s): surgery for undescended testicle, EGD, colonocopy Past Anesthesia/Blood Transfusion Reactions: Previous Problems w/ Anesthesia, Motion Sickness Additional Past Anesthesia/Blood Transfusion Reaction / Comment(s): "My heart stopped and I stopped breathing age 10 during a EGD/colonoscopy", was done at [facility] about 15 yrs ago. Past Psychological History: Anxiety, Depression, PTSD Smoking Status: Never smoker Past Alcohol Use History: Rare Past Drug Use History: None Reported - Past Family History Mother Family Medical History: Cancer Father Family Medical History: Cancer General Exam Limitations: no limitations General appearance: alert, in no apparent distress GI/Abdominal exam: Present: soft, normal bowel sounds. Absent: distended, tenderness, guarding, rebound, rigid exam: Present: normal inspection, other (Susan ARGUELLO present for examination. No lesions noted.). Absent: testicular tenderness, urethral discharge, scrotal swelling Neurological exam: Present: alert, oriented X3 Psychiatric exam: Present: normal affect, normal mood Skin exam: Present: warm, dry, intact, normal color. Absent: rash Course Vital Signs 05/12/24 05/12/24 02:04 04:48 Temperature 98.3 F Pulse Rate 81 67 Respiratory 18 16 Rate Blood Pressure 106/75 115/79 O2 Sat by Pulse 100 99 Oximetry Medical Decision Making - Medical Decision Making Was pt. sent in by a medical professional or institution ([facility] Ritchie, VOCATIONAL REHABILITATION SPECIALIST, urgent care, hospital, or fpc...) When possible be specific @ -No Did you speak to anyone other than the patient for history (EMS, parent, family, police, friend...)? What history was obtained from this source @ -No Did you review nursing and triage notes (agree or disagree)? Why? @ -I reviewed and agree with nursing and triage notes Were old charts reviewed (outside hosp., previous admission, EMS record, old EKG, old radiological studies, urgent care reports/EKG's, fpc records)? Report findings @ -No old charts were reviewed Differential Diagnosis (chest pain, altered mental status, abdominal pain women, abdominal pain men, vaginal bleeding, weakness, fever, dyspnea, syncope, headache, dizziness, GI bleed, back pain, seizure, CVA, palpatations, mental health, musculoskeletal)? @ -Urinary tract infection, STD, herpes simplex, BPH EKG interpreted by me (3pts min.). @ -None X-rays interpreted by me (1pt min.). @ -None done CT interpreted by me (1pt min.). @ -None done U/S interpreted by me (1pt. min.). @ -None done What testing was considered but not performed or refused? (CT, X-rays, U/S, labs)? Why? @ -None What meds were considered but not given or refused? Why? @ -None Did you discuss the management of the patient with other professionals (professionals i.e. EMA Ritchie, VOCATIONAL REHABILITATION SPECIALIST, lab, RT, psych nurse, social service agency director, glaciologist, teacher, transportation officer, caser shoe parts)? Give summary @ -No Was smoking cessation discussed for >3mins.? @ -No Was critical care preformed (if so, how long)? @ -No Were there social determinants of health that impacted care today? How? (Homelessness, low income, unemployed, alcoholism, drug addiction, transportation, low edu. Level, literacy, decrease access to med. care, fci, rehab)? @ -No Was there de-escalation of care discussed even if they declined (Discuss DNR or withdrawal of care, Hospice)? DNR status @ -No What co-morbidities impacted this encounter? (DM, HTN, Smoking, COPD, CAD, Cancer, CVA, ARF, Chemo, Hep., AIDS, mental health diagnosis, sleep apnea, morbid obesity)? @ -None Was patient admitted / discharged? Hospital course, mention meds given and route, prescriptions, significant lab abnormalities, going to OR and other pertinent info. @ -Patient was discharged. This is a 34 old male presenting for STD testing. He does admit some dysuria, denies testicular pain or swelling. No red flag symptoms. examination unremarkable, Susan ARGUELLO present during examination. Patient was prophylactically treated with Rocephin and doxycycline. Urine chlamydia and gonorrhea sent. Patient discharged in stable condition. Case was discussed with my ED attending Dr. Garcia. Undiagnosed new problem with uncertain prognosis? @ -No Drug Therapy requiring intensive monitoring for toxicity (Heparin, Nitro, Insulin, Cardizem)? @ -No Were any procedures done? @ -No Diagnosis/symptom? @ -STD testing Acute, or Chronic, or Acute on Chronic? @ -Acute Uncomplicated (without systemic symptoms) or Complicated (systemic symptoms)? @ -Uncomplicated Side effects of treatment? @ -No Exacerbation, Progression, or Severe Exacerbation? @ -No Poses a threat to life or bodily function? How? (Chest pain, [place], [place], pneumonia, PE, COPD, DKA, ARF, appy, cholecystitis, CVA, Diverticulitis, Homicidal, Suicidal, threat to staff... and all critical care pts) @ -No - Lab Data Lab Results 05/12/24 Range/Units 03:45 Urine Color Yellow Urine Appearance Clear (Clear) Urine pH 6.0 (5.0-8.0) Ur Specific [place] 1.032 (1.001-1.035) Urine Protein Negative (Negative) Urine Glucose (UA) Negative (Negative) Urine Ketones Negative (Negative) Urine Blood Negative (Negative) Urine Nitrite Negative (Negative) Urine Bilirubin Negative (Negative) Urine Urobilinogen <2.0 (<2.0) mg/dL Ur Leukocyte Esterase Negative (Negative) Disposition Clinical Impression: Exposure to STD, Dysuria Disposition: HOME SELF-CARE Condition: Stable Instructions (If sedation given, give patient instructions): Sexually Transmitted Diseases (ED), Safe Sex Practices (ED) Additional Instructions: Take full course of doxycycline as prescribed. Please return to the Emergency Department if symptoms worsen or any other concerns. Prescriptions: Doxycycline [Vibramycin] 100 mg PO BID 7 Days #14 capsule Is patient prescribed a controlled substance at d/c from ED?: No Referrals: Breanna Mao MD [Primary Care Provider] - 1-2 days Time of Disposition: 04:32
[2024-05-12] MEDS: cefTRIAXone 1,000 MG VIAL (IM USE) IM STA (03:48)
[2024-05-12 04:25] LABS: Appearance,Urine Clear (Clear); Bilirubin,Urine Negative (Negative); Blood,Urine Negative (Negative); Color,Urine Yellow; Glucose,Urine (UA) Negative (Negative); Ketones,Urine Negative (Negative); Leukocyte Esterase,Urine Negative (Negative); Nitrite,Urine Negative (Negative); Protein,Urine Negative (Negative); Specific Gravity,Urine 1.032 (1.001-1.035); Urobilinogen,Urine <2.0 mg/dL (<2.0)
[2024-05-12 04:52] VITALS: BP 115/79; PULSE 67; RESP 16
[2024-05-14 07:42] LABS: C. trachomatis,PCR Negative (Negative); N. gonorrhoeae,PCR Negative (Negative)
== END 2024-05-12 04:48 | disposition home or self-care (01) ==
LOC: EC 01:59
CPT/HCPCS: 81003; 87491; 87591; 96372; 99283

== ENCOUNTER 2024-07-24 11:00 | Emergency (ER) | payer OTHER ==
[2024-07-24 11:04] VITALS: TEMP 97.6
--- NOTE | 2024-07-24 11:37 | ED ---
General Adult HPI - General Chief complaint: Shortness of Breath Stated complaint: REJI Time Seen by Provider: 07/24/24 11:09 Source: patient, RN notes reviewed Mode of arrival: wheelchair Limitations: no limitations - History of Present Illness Initial comments: 34-year-old male presents to the emergency department for evaluation of shortness of breath. Patient reports a history of asthma. He notes that the symptoms have been going on for around 3 weeks. He reports symptoms have continued to worsen. Admits to cough with yellow sputum production. He denies any recent fever, chills. Denies any palpitations. Denies recent travel. - Related Data Home Medications Medication Instructions Recorded Confirmed Albuterol Inhaler [Ventolin Hfa 2 puff INHALATION RT-QID PRN 07/24/24 07/24/24 Inhaler] Albuterol Nebulized [Ventolin 2.5 mg INHALATION RT-Q6H PRN 07/24/24 07/24/24 Nebulized] Atorvastatin [Lipitor] 10 mg PO HS 07/24/24 07/24/24 Dextroamphetamine/Amphetamine 10 mg PO DAILY 07/24/24 07/24/24 [Adderall Xr 10 mg Capsule] FLUoxetine HCL 40 mg PO DAILY 07/24/24 07/24/24 Famotidine [Pepcid] 20 mg PO BID 07/24/24 07/24/24 Fluticasone Propionate 110 Mcg 2 puff INHALATION RT-BID 07/24/24 07/24/24 [Flovent 110 Mcg Inhaler] Ipratropium-Albuterol Nebulize 3 ml INHALATION RT-Q6H PRN 07/24/24 07/24/24 [Duoneb 0.5 mg-3 mg/3 ml Soln] Montelukast [Singulair] 10 mg PO HS 07/24/24 07/24/24 Prazosin HCl [Minipress] 2 mg PO HS 07/24/24 07/24/24 traZODone HCL [Desyrel] 50 mg PO HS 07/24/24 07/24/24 Previous Rx's Medication Instructions Recorded Doxycycline [Vibramycin] 100 mg PO BID #14 capsule 07/24/24 predniSONE 50 mg PO DAILY #5 tab 07/24/24 Allergies Allergy/AdvReac Type Severity Reaction Status Date / Time egg Allergy Rash/Hives Verified 07/24/24 11:50 latex Allergy Rash/Hives Verified 07/24/24 11:50 milk Allergy Anaphylaxis Verified 07/24/24 11:50 Penicillins AdvReac Nausea & Verified 07/24/24 11:50 Vomiting & Diarrhea antibiotics Allergy Unknown Uncoded 05/12/24 02:07 antihistamines Allergy Unknown Uncoded 05/12/24 02:07 Review of Systems ROS Statement: Those systems with pertinent positive or pertinent negative responses have been documented in the HPI. ROS Other: All systems not noted in ROS Statement are negative. Past Medical History Past Medical History: Asthma, GERD/Reflux, Osteoarthritis (OA), Pneumonia Additional Past Medical History / Comment(s): eosinophilic gastroenteritis, osteoporosis, kidney stones History of Any Multi-Drug Resistant Organisms: MRSA Date of last positivie culture/infection: 03/02/21 MDRO Source:: [place] Past Surgical History: Unable to Obtain Additional Past Surgical History / Comment(s): surgery for undescended testicle, EGD, colonocopy Past Anesthesia/Blood Transfusion Reactions: Previous Problems w/ Anesthesia, Motion Sickness Additional Past Anesthesia/Blood Transfusion Reaction / Comment(s): "My heart stopped and I stopped breathing age 10 during a EGD/colonoscopy", was done at [facility] about 15 yrs ago. Past Psychological History: Anxiety, Depression, PTSD Smoking Status: Never smoker Past Alcohol Use History: Rare Past Drug Use History: None Reported - Past Family History Mother Family Medical History: Cancer Father Family Medical History: Cancer General Exam Limitations: no limitations General appearance: alert, in no apparent distress Head exam: Present: atraumatic, normocephalic, normal inspection Eye exam: Present: normal appearance, PERRL, EOMI. Absent: scleral icterus, conjunctival injection, periorbital swelling Course Vital Signs 07/24/24 07/24/24 07/24/24 11:00 12:00 12:04 Temperature 97.6 F Pulse Rate 90 71 82 Respiratory 22 22 Rate Blood Pressure 96/69 123/77 O2 Sat by Pulse 100 100 Oximetry 07/24/24 07/24/24 07/24/24 12:19 12:30 13:00 Temperature Pulse Rate 80 77 87 Respiratory 22 20 Rate Blood Pressure 123/75 118/67 O2 Sat by Pulse 100 100 Oximetry 07/24/24 07/24/24 13:30 14:00 Temperature Pulse Rate 90 90 Respiratory 20 17 Rate Blood Pressure 123/83 111/76 O2 Sat by Pulse 100 96 Oximetry Medical Decision Making - Medical Decision Making Was pt. sent in by a medical professional or institution (EMA Ritchie, CUSTOM TAILOR APPRENTICE, urgent care, hospital, or group home...) When possible be specific @ -No Did you speak to anyone other than the patient for history (EMS, parent, family, police, friend...)? What history was obtained from this source @ -No Did you review nursing and triage notes (agree or disagree)? Why? @ -I reviewed and agree with nursing and triage notes Were old charts reviewed (outside hosp., previous admission, EMS record, old EKG, old radiological studies, urgent care reports/EKG's, group home records)? Report findings @ -Reviewed chart from prior ED visit for asthma exacerbation Differential Diagnosis (chest pain, altered mental status, abdominal pain women, abdominal pain men, vaginal bleeding, weakness, fever, dyspnea, syncope, headache, dizziness, GI bleed, back pain, seizure, CVA, palpatations, mental health, musculoskeletal)? @ -Differential Dyspnea: Coronary syndrome, arrhythmia, tamponade, asthma, COPD, pulmonary embolism, pneumonia, pneumothorax, pulmonary effusion, anaphylaxis, diabetic ketoacidosis, flailed chest, pulmonary contusion, diaphragmatic rupture, anemia, neuromuscular, this is not meant to be an all-inclusive list. EKG interpreted by me (3pts min.). @ -EKG at 1120 shows sinus rhythm rate 92, DE 121, QRS 90, QTQTc [id number] X-rays interpreted by me (1pt min.). @ -Chest x-ray shows Airspace opacity in left lower lung possible summation artifact CT interpreted by me (1pt min.). @ -None done U/S interpreted by me (1pt. min.). @ -None done What testing was considered but not performed or refused? (CT, X-rays, U/S, labs)? Why? @ -None What meds were considered but not given or refused? Why? @ -None Did you discuss the management of the patient with other professionals (professionals i.e. EMA Ritchie, CUSTOM TAILOR APPRENTICE, lab, RT, psych nurse, social worker health services, peoplesoft crm developer, teacher, training officer, case loader operator)? Give summary @ -No Was smoking cessation discussed for >3mins.? @ -No Was critical care preformed (if so, how long)? @ -No Were there social determinants of health that impacted care today? How? (Homelessness, low income, unemployed, alcoholism, drug addiction, transportation, low edu. Level, literacy, decrease access to med. care, retirement, rehab)? @ -No Was there de-escalation of care discussed even if they declined (Discuss DNR or withdrawal of care, Hospice)? DNR status @ -No What co-morbidities impacted this encounter? (DM, HTN, Smoking, COPD, CAD, Cancer, CVA, ARF, Chemo, Hep., AIDS, mental health diagnosis, sleep apnea, morbid obesity)? @ -None Was patient admitted / discharged? Hospital course, mention meds given and route, prescriptions, significant lab abnormalities, going to OR and other pertinent info. @ -Discharge. Patient presented to the emergency department for evaluation of shortness of breath. He underwent laboratory studies revealing no significant leukocytosis.CMP on actionable at this time, negative troponin, negative D- dimer, negative for COVID, influenza, RSV. Patient was provided 1 L normal saline in the emergency department along with a DuoNeb treatment and a dose of IV Solu-Medrol. Chest x-ray shows airspace opacity in the left lower lung which is possible summation artifact with the patient's symptomatology he will be started on antibiotics and steroids. He is understanding and agreeable with this plan. Patient stable at time of discharge. Case discussed with Dr. Lake. Undiagnosed new problem with uncertain prognosis? @ -No Drug Therapy requiring intensive monitoring for toxicity (Heparin, Nitro, Insulin, Cardizem)? @ -No Were any procedures done? @ -No Diagnosis/symptom? @ -Asthma exacerbation, pneumonia Acute, or Chronic, or Acute on Chronic? @ -Acute Uncomplicated (without systemic symptoms) or Complicated (systemic symptoms)? @ -Uncomplicated Side effects of treatment? @ -No Exacerbation, Progression, or Severe Exacerbation? @ -No Poses a threat to life or bodily function? How? (Chest pain, [place], [place], pneumonia, PE, COPD, DKA, ARF, appy, cholecystitis, CVA, Diverticulitis, Homicidal, Suicidal, threat to staff... and all critical care pts) @ -No - Lab Data Result diagrams: 07/24/24 11:42 07/24/24 11:42 Lab Results 07/24/24 07/24/24 07/24/24 Range/Units 11:42 11:42 11:42 WBC 6.4 (3.8-10.6) k/uL RBC 4.95 (4.30-5.90) m/uL Hgb 14.5 (13.0-17.5) gm/dL Hct 44.6 (39.0-53.0) % MCV 90.1 (80.0-100.0) fL MCH 29.3 (25.0-35.0) pg MCHC 32.5 (31.0-37.0) g/dL RDW 13.2 (11.5-15.5) % Plt Count 306 (150-450) k/uL MPV 7.1 Neutrophils % 44 % Lymphocytes % 39 % Monocytes % 5 % Eosinophils % 10 % Basophils % 1 % Neutrophils # 2.8 (1.3-7.7) k/uL Lymphocytes # 2.5 (1.0-4.8) k/uL Monocytes # 0.3 (0-1.0) k/uL Eosinophils # 0.7 (0-0.7) k/uL Basophils # 0.1 (0-0.2) k/uL PT 10.8 (10.0-12.5) sec INR 1.0 (<1.2) APTT 28.2 (22.0-30.0) sec D-Dimer <0.17 (<0.60) mg/L FEU Sodium 137 (137-145) mmol/L Potassium 3.7 (3.5-5.1) mmol/L Chloride 109 H (98-107) mmol/L Carbon Dioxide 19 L (22-30) mmol/L Anion Gap 9 mmol/L BUN 12 (9-20) mg/dL Creatinine 1.25 (0.66-1.25) mg/dL Est GFR (CKD-EPI)AfAm 87 (>60 ml/min/1.73 sqM) Est GFR (CKD-EPI)NonAf 75 (>60 ml/min/1.73 sqM) Glucose 91 (74-99) mg/dL Plasma Lactic Acid Félix (0.7-2.0) mmol/L Calcium 9.2 (8.4-10.2) mg/dL Magnesium 1.9 (1.6-2.3) mg/dL Total Bilirubin 0.5 (0.2-1.3) mg/dL AST 19 (17-59) U/L ALT 15 (4-49) U/L Alkaline Phosphatase 59 (38-126) U/L Troponin I (0.000-0.034) ng/mL Total Protein 6.6 (6.3-8.2) g/dL Albumin 4.2 (3.5-5.0) g/dL Influenza Type A (PCR) (Not Detectd) Influenza Type B (PCR) (Not Detectd) RSV (PCR) (Not Detectd) SARS-CoV-2 (PCR) (Not Detectd) 07/24/24 07/24/24 07/24/24 Range/Units 11:42 11:42 11:47 WBC (3.8-10.6) k/uL RBC (4.30-5.90) m/uL Hgb (13.0-17.5) gm/dL Hct (39.0-53.0) % MCV (80.0-100.0) fL MCH (25.0-35.0) pg MCHC (31.0-37.0) g/dL RDW (11.5-15.5) % Plt Count (150-450) k/uL MPV Neutrophils % % Lymphocytes % % Monocytes % % Eosinophils % % Basophils % % Neutrophils # (1.3-7.7) k/uL Lymphocytes # (1.0-4.8) k/uL Monocytes # (0-1.0) k/uL Eosinophils # (0-0.7) k/uL Basophils # (0-0.2) k/uL PT (10.0-12.5) sec INR (<1.2) APTT (22.0-30.0) sec D-Dimer (<0.60) mg/L FEU Sodium (137-145) mmol/L Potassium (3.5-5.1) mmol/L Chloride (98-107) mmol/L Carbon Dioxide (22-30) mmol/L Anion Gap mmol/L BUN (9-20) mg/dL Creatinine (0.66-1.25) mg/dL Est GFR (CKD-EPI)AfAm (>60 ml/min/1.73 sqM) Est GFR (CKD-EPI)NonAf (>60 ml/min/1.73 sqM) Glucose (74-99) mg/dL Plasma Lactic Acid Félix 2.1 H* (0.7-2.0) mmol/L Calcium (8.4-10.2) mg/dL Magnesium (1.6-2.3) mg/dL Total Bilirubin (0.2-1.3) mg/dL AST (17-59) U/L ALT (4-49) U/L Alkaline Phosphatase (38-126) U/L Troponin I <0.012 (0.000-0.034) ng/mL Total Protein (6.3-8.2) g/dL Albumin (3.5-5.0) g/dL Influenza Type A (PCR) Not Detected (Not Detectd) Influenza Type B (PCR) Not Detected (Not Detectd) RSV (PCR) Not Detected (Not Detectd) SARS-CoV-2 (PCR) Not Detected (Not Detectd) Disposition Clinical Impression: Asthma exacerbation, Pneumonia Disposition: HOME SELF-CARE Condition: Stable Instructions (If sedation given, give patient instructions): Asthma (ED) Additional Instructions: Please follow-up with family care provider. Return to the emergency department for new or worsening symptoms. Prescriptions: predniSONE 50 mg PO DAILY #5 tab Doxycycline [Vibramycin] 100 mg PO BID #14 capsule Is patient prescribed a controlled substance at d/c from ED?: No Referrals: Breanna Mao MD [Primary Care Provider] - 1-2 days
[2024-07-24 11:53] LABS: Basophils # (A) 0.1 k/uL (0-0.2); Basophils % (A) 1 %; Eosinophils # (A) 0.7 k/uL (0-0.7); Eosinophils % (A) 10 %; HCT 44.6 % (39.0-53.0); HGB 14.5 gm/dL (13.0-17.5); Lymphocytes # (A) 2.5 k/uL (1.0-4.8); Lymphocytes % (A) 39 %; MCH 29.3 pg (25.0-35.0); MCHC 32.5 g/dL (31.0-37.0); MCV 90.1 fL (80.0-100.0); Mean Platelet Volume 7.1; Monocytes # (A) 0.3 k/uL (0-1.0); Monocytes % (A) 5 %; Neutrophils # (A) 2.8 k/uL (1.3-7.7); Neutrophils % (A) 44 %; Platelet Count 306 k/uL (150-450); RBC 4.95 m/uL (4.30-5.90); RDW 13.2 % (11.5-15.5); WBC 6.4 k/uL (3.8-10.6)
[2024-07-24] MEDS: methylPREDNISolone SOD SUCCI 125 MG/2 ML VIAL IV STA (11:55)
[2024-07-24] MEDS: SODIUM CHLORIDE 0.9% 1,000 ML IV ONE (11:56)
[2024-07-24] MEDS: IPRATROPIUM-ALBUTEROL 3 ML NEB INHALATION STA (12:04)
[2024-07-24 12:05] LABS: ALT 15 U/L (4-49); AST 19 U/L (17-59); African American GFR (CKD) 87 (>60 ml/min/1.73 sqM); Albumin 4.2 g/dL (3.5-5.0); Alkaline Phosphatase 59 U/L (38-126); Anion Gap 9 mmol/L; Blood Urea Nitrogen 12 mg/dL (9-20); Calcium 9.2 mg/dL (8.4-10.2); Carbon Dioxide 19 mmol/L (22-30); Chloride 109 mmol/L (98-107); Glucose 91 mg/dL (74-99); Magnesium 1.9 mg/dL (1.6-2.3); Non-African American GFR(CKD) 75 (>60 ml/min/1.73 sqM); Potassium 3.7 mmol/L (3.5-5.1); Sodium 137 mmol/L (137-145); Total Bilirubin 0.5 mg/dL (0.2-1.3); Total Protein 6.6 g/dL (6.3-8.2)
[2024-07-24 12:10] LABS: Partial Thromboplastin Time 28.2 sec (22.0-30.0); Prothrombin Time 10.8 sec (10.0-12.5)
--- NOTE | 2024-07-24 13:33 | XR ---
EXAMINATION TYPE: XR chest 2V DATE OF EXAM: 07/24/2024 1:28 PM COMPARISON: Chest radiographs from 04/14/2024 CLINICAL INDICATION: Male, 34 years old with history of difficulty breathing; TECHNIQUE: XR chest 2V Frontal and lateral views of the chest. FINDINGS: Lungs/Pleura: Airspace opacity project over the left lower lobe. There is no evidence of pleural effu amanda, focal consolidation, or pneumothorax. Pulmonary vascularity: Unremarkable. Heart/mediastinum: Cardiomediastinal silhouette is unremarkable. Musculoskeletal: No acute osseous pathology. IMPRESSION: Airspace opacity in the left lower lung possibly summation artifact with the left rib. There is caden rn consider cross-sectional imaging. [facility], , 07/24/2024 1:31 PM
[2024-07-24 14:47] VITALS: BP 134/84; PULSE 97; RESP 18
== END 2024-07-24 14:47 | disposition home or self-care (01) ==
LOC: EC 11:00
DX: J45.901 Unspecified asthma with (acute) exacerbation (principal); Z91.040 Latex allergy status; Z88.0 Allergy status to penicillin; Z88.1 Allergy status to other antibiotic agents; Z91.011 Allergy to milk products; Z91.012 Allergy to eggs; Z88.8 Allergy status to other drugs, medicaments and biological substances
CPT/HCPCS: 36415; 94640; 93005; 85379; 80053; 83605; 83735; 84484; 85025; 85610; 85730; 87636; 71046; 99285; 96374; 96361; J2919

== ENCOUNTER → 2024-08-06 | Outpatient (CLI) | payer OTHER ==
--- NOTE | 2024-08-06 16:10 | XR ---
EXAMINATION TYPE: XR chest 2V DATE OF EXAM: 08/06/2024 4:03 PM COMPARISON: Chest radiographs from 07/24/2024 CLINICAL INDICATION: Male, 34 years old with history of PNEUMONIA Z87.01; [facility] TECHNIQUE: XR chest 2V Frontal and lateral views of the chest. FINDINGS: Lungs/Pleura: There is flattening of the diaphragm with increased lucency of the lungs. No evidence o f pneumothorax, pleural effusion or focal consolidation. Pulmonary vascularity: Unremarkable. Heart/mediastinum: Cardiomediastinal silhouette is unremarkable. Musculoskeletal: No acute osseous pathology. IMPRESSION: 1. No acute cardiopulmonary disease process. 2. COPD changes. [facility], , 08/06/2024 4:08 PM
== END | disposition home or self-care (01) ==
LOC: RADXRMAIN 15:46
PROVIDERS: ATTEND Family Medicine
DX: J44.9 Chronic obstructive pulmonary disease, unspecified (principal); Z87.01 Personal history of pneumonia (recurrent)
CPT/HCPCS: 71046

== ENCOUNTER → 2024-08-06 | Outpatient (CLI) | payer OTHER ==
[2024-08-07 01:39] LABS: Basophils % (A) 1.2 %; Eosinophils # (A) 0.76 X 10*3/uL (0.04-0.35); Eosinophils % (A) 9.3 %; HCT 48.5 % (39.6-50.0); HGB 15.4 g/dL (13.0-17.0); Lymphocytes # (A) 2.32 X 10*3/uL (0.90-5.00); Lymphocytes % (A) 28.5 %; MCH 29.3 pg (27.0-32.0); MCHC 31.8 g/dL (32.0-37.0); MCV 92.2 FL (80.0-97.0); Mean Platelet Volume 10.1 FL (9.5-12.2); Monocytes # (A) 0.49 X 10*3/uL (0.20-1.00); NRBC Per 100 WBC 0 X 10*3/uL (0.00-0.01); Neutrophils % (A) 54.1 %; Platelet Count 310 X 10*3/uL (140-440); RBC 5.26 X 10*6/uL (4.40-5.60); RDW 13.2 % (11.5-14.5); WBC 8.14 X 10*3/uL (4.50-10.00)
[2024-08-07 02:19] LABS: ALT 20 U/L (10-49); AST 17 U/L (14-35); Albumin 4.5 g/dL (3.8-4.9); Albumin/Globulin Ratio 2.05 Ratio (1.60-3.17); Alkaline Phosphatase 62 U/L (41-126); Blood Urea Nitrogen 8.4 mg/dL (9.0-27.0); Calcium 9.5 mg/dL (8.7-10.3); Carbon Dioxide 26.3 mmol/L (21.6-31.8); Chloride 104 mmol/L (96-109); Chol/HDL Ratio 5.27 Ratio; Globulin 2.2 g/dL (1.6-3.3); Glucose 86 mg/dL (70-110); LDL Cholesterol,Calculated 154.3 mg/dL (0.0-131.0); Potassium 4.5 mmol/L (3.5-5.5); Sodium 140 mmol/L (135-145); Total Bilirubin 0.3 mg/dL (0.3-1.2); Total Protein 6.7 g/dL (6.2-8.2)
== END | disposition home or self-care (01) ==
LOC: LABWHC1 15:33
PROVIDERS: ATTEND Nurse Practitioner Family
DX: Z00.01 Encounter for general adult medical examination with abnormal findings (principal); F33.2 Major depressive disorder, recurrent severe without psychotic features; Z79.899 Other long term (current) drug therapy
CPT/HCPCS: 36415; 80053; 80061; 82306; 84439; 84443; 85025

== ENCOUNTER → 2024-09-16 | Outpatient (CLI) | payer OTHER ==
--- NOTE | 2024-09-16 11:30 | CT ---
EXAMINATION TYPE: CT chest wo con DATE OF EXAM: 09/16/2024 COMPARISON: 07/24/2021 HISTORY: 34-year-old male chest pain and tightness REJI hx of recent pneumonia TECHNIQUE: Contiguous axial scanning of the chest after without IV contrast. Coronal/sagittal reconst ructions performed. CT DLP: 260.90mGycm. Automatic exposure control utilized for a dose reduction. FINDINGS: The heart is normal size without pericardial effusion. Aorta normal caliber with conventional arch vessel branching anatomy. Some strandy soft tissue in the prevascular space suggestive of some residual thymic tissue, unchange d from prior. No thoracic lymphadenopathy by CT size criteria. There is mild patchy reticular densities anterior left upper lobe. No other consolidation or pleural effusion. Visualized upper abdomen shows a punctate 2 mm stone within either kidney. Bones: No osseous destructive process. Slight levoconvex curvature along the upper lumbar spine. IMPRESSION: 1. Minimal interstitial infiltrate anterior left upper lobe probably relates to residual changes of p atient's reported recent pneumonia. Otherwise, no acute process seen. 2. A couple punctate nonobstructive renal calculi. [facility], Workstation: [employer] SADEVI, 09/16/2024 11:28 AM
== END | disposition home or self-care (01) ==
LOC: RADCTMAIN 10:25
PROVIDERS: ATTEND Internal Medicine
DX: R59.0 Localized enlarged lymph nodes (principal); R91.8 Other nonspecific abnormal finding of lung field; Z87.01 Personal history of pneumonia (recurrent); N20.0 Calculus of kidney
CPT/HCPCS: 71250

== ENCOUNTER 2024-10-27 07:42 | Emergency (ER) | payer OTHER ==
--- NOTE | 2024-10-27 08:26 | ED ---
General Adult HPI - General Chief complaint: ENT Stated complaint: Ear infection Time Seen by Provider: 10/27/24 07:53 Source: patient Mode of arrival: ambulatory Limitations: no limitations - History of Present Illness Initial comments: Dictation was produced using [employer] dictation software. please excuse any grammatical, word or spelling errors. Chief Complaint: 34-year-old male with right ear pain History of Present Illness: Patient 34-year-old male has history of myringotomy tubes. Presents to the ER for 3 to 4 days of right ear pain. Denies any fevers. Patient states that feels like it hurts on the inside. No sore throat. No trismus states that his ear does hurt whenever he wiggles it. Patient does not swim or get water collected in his ears. The ROS documented in this emergency department record has been reviewed and confirmed by me. Those systems with pertinent positive or negative responses have been documented in the HPI. All other systems are other negative and/or noncontributory. - Related Data Home Medications Medication Instructions Recorded Confirmed Albuterol Inhaler [Ventolin Hfa 2 puff INHALATION RT-QID PRN 07/24/24 07/24/24 Inhaler] Albuterol Nebulized [Ventolin 2.5 mg INHALATION RT-Q6H PRN 07/24/24 07/24/24 Nebulized] Atorvastatin [Lipitor] 10 mg PO HS 07/24/24 07/24/24 Dextroamphetamine/Amphetamine 10 mg PO DAILY 07/24/24 07/24/24 [Adderall Xr 10 mg Capsule] FLUoxetine HCL 40 mg PO DAILY 07/24/24 07/24/24 Famotidine [Pepcid] 20 mg PO BID 07/24/24 07/24/24 Fluticasone Propionate 110 Mcg 2 puff INHALATION RT-BID 07/24/24 07/24/24 [Flovent 110 Mcg Inhaler] Ipratropium-Albuterol Nebulize 3 ml INHALATION RT-Q6H PRN 07/24/24 07/24/24 [Duoneb 0.5 mg-3 mg/3 ml Soln] Montelukast [Singulair] 10 mg PO HS 07/24/24 07/24/24 Prazosin HCl [Minipress] 2 mg PO HS 07/24/24 07/24/24 traZODone HCL [Desyrel] 50 mg PO HS 07/24/24 07/24/24 Previous Rx's Medication Instructions Recorded Doxycycline [Vibramycin] 100 mg PO BID #14 capsule 07/24/24 predniSONE 50 mg PO DAILY #5 tab 07/24/24 predniSONE 50 mg PO DAILY #5 tab 09/28/24 Azithromycin [Zithromax Z Pack] 1 tab PO DIRECTED #6 tab 10/27/24 Allergies Allergy/AdvReac Type Severity Reaction Status Date / Time egg Allergy Rash/Hives Verified 10/27/24 07:59 latex Allergy Rash/Hives Verified 10/27/24 07:59 milk Allergy Anaphylaxis Verified 10/27/24 07:59 Penicillins AdvReac Nausea & Verified 10/27/24 07:59 Vomiting & Diarrhea antibiotics Allergy Unknown Uncoded 10/27/24 07:59 antihistamines Allergy Unknown Uncoded 10/27/24 07:59 Review of Systems ROS Statement: Those systems with pertinent positive or pertinent negative responses have been documented in the HPI. ROS Other: All systems not noted in ROS Statement are negative. Past Medical History Past Medical History: Asthma, GERD/Reflux, Osteoarthritis (OA), Pneumonia Additional Past Medical History / Comment(s): eosinophilic gastroenteritis, osteoporosis, kidney stones History of Any Multi-Drug Resistant Organisms: MRSA Date of last positivie culture/infection: 03/02/21 MDRO Source:: [place] Past Surgical History: Unable to Obtain Additional Past Surgical History / Comment(s): surgery for undescended testicle, EGD, colonocopy Past Anesthesia/Blood Transfusion Reactions: Previous Problems w/ Anesthesia, Motion Sickness Additional Past Anesthesia/Blood Transfusion Reaction / Comment(s): "My heart stopped and I stopped breathing age 10 during a EGD/colonoscopy", was done at [facility] about 15 yrs ago. Past Psychological History: Anxiety, Depression, PTSD Smoking Status: Never smoker Past Alcohol Use History: Rare Past Drug Use History: None Reported - Past Family History Mother Family Medical History: Cancer Father Family Medical History: Cancer General Exam - General Exam Comments Initial Comments: General: Well-appearing, nontoxic, no acute distress. Head: Normocephalic, atraumatic Eyes: PERRLA, EOMI ENT: Airway patent, right TM is bulging and erythematous without obvious effusion. There does appear to be some inflammation at the external auditory canal Chest: Nonlabored breathing Skin: No visual rash, normal skin tone Neuro: Alert and oriented 3 Musculoskeletal: No gross abnormalities Limitations: no limitations Course Vital Signs 10/27/24 07:56 Temperature 98 F Pulse Rate 73 Respiratory 18 Rate Blood Pressure 105/79 O2 Sat by Pulse 97 Oximetry Medical Decision Making - Medical Decision Making Was pt. sent in by a medical professional or institution (, PA, SAP BW CONSULTANT, urgent care, hospital, or fci...) When possible be specific @ -No Did you speak to anyone other than the patient for history (EMS, parent, family, police, friend...)? What history was obtained from this source @ -No Did you review nursing and triage notes (agree or disagree)? Why? @ -I reviewed and agree with nursing and triage notes Were old charts reviewed (outside hosp., previous admission, EMS record, old EKG, old radiological studies, urgent care reports/EKG's, fci records)? Report findings @ -No old charts were reviewed Differential Diagnosis (chest pain, altered mental status, abdominal pain women, abdominal pain men, vaginal bleeding, musculoskeletal, weakness, fever, dyspnea, syncope, headache, dizziness, GI bleed, back pain, seizure, CVA, palpatations, mental health)? @ -Otitis externa, otitis media, ruptured TM EKG interpreted by me (3pts min.). @ -None done X-rays interpreted by me (1pt min.). @ -None done CT interpreted by me (1pt min.). @ -None done U/S interpreted by me (1pt. min.). @ -None done What testing was considered but not performed or refused? (CT, X-rays, U/S, labs)? Why? @ -None What meds were considered but not given or refused? Why? @ -None Was smoking cessation discussed for >3mins.? @ -No Were there social determinants of health that impacted care today? How? (Homelessness, low income, unemployed, alcoholism, drug addiction, transportation, low edu. Level, literacy, decrease access to med. care, fpc, rehab)? @ -No Was there de-escalation of care discussed even if they declined (Discuss DNR or withdrawal of care, Hospice)? DNR status @ -No What co-morbidities impacted this encounter? (DM, HTN, Smoking, COPD, CAD, Cancer, CVA, ARF, Chemo, Hep., AIDS, mental health diagnosis, sleep apnea, morbid obesity)? @ -None Was patient admitted / discharged? Hospital course, mention meds given and route, prescriptions, significant lab abnormalities, going to OR and other pertinent info. @ -34-year-old male with otitis media. Vital signs stable. Patient given oral antibiotics at discharge. Did you discuss the management of the patient with other professionals (professionals i.e. , PA, SAP BW CONSULTANT, lab, RT, psych nurse, social worker aide, slip sheeter, teacher, nuclear security officer, nurse case manager)? Give summary @ -No Was critical care preformed (if so, how long)? @ -No Undiagnosed new problem with uncertain prognosis? @ -No Drug Therapy requiring intensive monitoring for toxicity (Heparin, Nitro, Insulin, Cardizem)? @ -No Were any procedures done? @ -No Diagnosis/symptom? Acute, or Chronic, or Acute on Chronic? Uncomplicated (without systemic symptoms) or Complicated (systemic symptoms)? @ -Otitis media Side effects of treatment? @ -No Exacerbation, Progression, or Severe Exacerbation? @ -No Poses a threat to life or bodily function? How? (Chest pain, [place], [place], pneumonia, PE, COPD, DKA, ARF, appy, cholecystitis, CVA, Diverticulitis, Homicidal, Suicidal, threat to staff... and all critical care pts) @ -yes Disposition Clinical Impression: Otitis media Disposition: HOME SELF-CARE Condition: Good Instructions (If sedation given, give patient instructions): Earache (ED) Prescriptions: Azithromycin [Zithromax Z Pack] 1 tab PO DIRECTED #6 tab Is patient prescribed a controlled substance at d/c from ED?: No Referrals: Ravi Alexander MD [Primary Care Provider] - 1-2 days Time of Disposition: 08:26
[2024-10-27 08:41] VITALS: BP 106/68; PULSE 62; RESP 20; TEMP 98.5
== END 2024-10-27 08:43 | disposition home or self-care (01) ==
LOC: EC 07:42
DX: H66.91 Otitis media, unspecified, right ear (principal); Z88.0 Allergy status to penicillin; Z88.1 Allergy status to other antibiotic agents; Z91.040 Latex allergy status; Z91.011 Allergy to milk products; Z91.012 Allergy to eggs; Z88.8 Allergy status to other drugs, medicaments and biological substances
CPT/HCPCS: 99282

== ENCOUNTER 2024-11-02 14:30 | Emergency (ER) | payer OTHER ==
[2024-11-02 14:35] VITALS: BP 134/85; PULSE 79; RESP 16; TEMP 97.7
--- NOTE | 2024-11-02 14:49 | ED ---
General Adult HPI - General Chief complaint: ENT Stated complaint: Right ear infection Time Seen by Provider: 11/02/24 14:36 Source: patient Mode of arrival: ambulatory Limitations: no limitations - History of Present Illness Initial comments: Dictation was produced using [employer] dictation software. please excuse any grammatical, word or spelling errors. Chief Complaint: 34-year-old male persistent right ear pain History of Present Illness: Patient 34-year-old male presents emergency department right ear pain. Patient was seen here 6 days ago seen by me with similar complaints. He was placed on antibiotics. Patient completed course of Z-Demarco however symptoms did not really improve. Denies any fever. Denies any mastoid tenderness The ROS documented in this emergency department record has been reviewed and confirmed by me. Those systems with pertinent positive or negative responses have been documented in the HPI. All other systems are other negative and/or noncontributory. - Related Data Home Medications Medication Instructions Recorded Confirmed Albuterol Inhaler [Ventolin Hfa 2 puff INHALATION RT-QID PRN 07/24/24 07/24/24 Inhaler] Albuterol Nebulized [Ventolin 2.5 mg INHALATION RT-Q6H PRN 07/24/24 07/24/24 Nebulized] Atorvastatin [Lipitor] 10 mg PO HS 07/24/24 07/24/24 Dextroamphetamine/Amphetamine 10 mg PO DAILY 07/24/24 07/24/24 [Adderall Xr 10 mg Capsule] FLUoxetine HCL 40 mg PO DAILY 07/24/24 07/24/24 Famotidine [Pepcid] 20 mg PO BID 07/24/24 07/24/24 Fluticasone Propionate 110 Mcg 2 puff INHALATION RT-BID 07/24/24 07/24/24 [Flovent 110 Mcg Inhaler] Ipratropium-Albuterol Nebulize 3 ml INHALATION RT-Q6H PRN 07/24/24 07/24/24 [Duoneb 0.5 mg-3 mg/3 ml Soln] Montelukast [Singulair] 10 mg PO HS 07/24/24 07/24/24 Prazosin HCl [Minipress] 2 mg PO HS 07/24/24 07/24/24 traZODone HCL [Desyrel] 50 mg PO HS 07/24/24 07/24/24 Previous Rx's Medication Instructions Recorded Doxycycline [Vibramycin] 100 mg PO BID #14 capsule 07/24/24 predniSONE 50 mg PO DAILY #5 tab 07/24/24 predniSONE 50 mg PO DAILY #5 tab 09/28/24 Azithromycin [Zithromax Z Pack] 1 tab PO DIRECTED #6 tab 10/27/24 Ciprofloxacin-Dexameth [Ciprodex 4 drops RIGHT EAR BID 7 Days #7.5 11/02/24 Otic Susp] ml Allergies Allergy/AdvReac Type Severity Reaction Status Date / Time egg Allergy Rash/Hives Verified 10/27/24 07:59 latex Allergy Rash/Hives Verified 10/27/24 07:59 milk Allergy Anaphylaxis Verified 10/27/24 07:59 Penicillins AdvReac Nausea & Verified 10/27/24 07:59 Vomiting & Diarrhea antibiotics Allergy Unknown Uncoded 10/27/24 07:59 antihistamines Allergy Unknown Uncoded 10/27/24 07:59 Review of Systems ROS Statement: Those systems with pertinent positive or pertinent negative responses have been documented in the HPI. ROS Other: All systems not noted in ROS Statement are negative. Past Medical History Past Medical History: Asthma, GERD/Reflux, Osteoarthritis (OA), Pneumonia Additional Past Medical History / Comment(s): eosinophilic gastroenteritis, osteoporosis, kidney stones History of Any Multi-Drug Resistant Organisms: MRSA Date of last positivie culture/infection: 03/02/21 MDRO Source:: [place] Past Surgical History: Unable to Obtain Additional Past Surgical History / Comment(s): surgery for undescended testicle, EGD, colonocopy Past Anesthesia/Blood Transfusion Reactions: Previous Problems w/ Anesthesia, Motion Sickness Additional Past Anesthesia/Blood Transfusion Reaction / Comment(s): "My heart stopped and I stopped breathing age 10 during a EGD/colonoscopy", was done at [facility] about 15 yrs ago. Past Psychological History: Anxiety, Depression, PTSD Smoking Status: Never smoker Past Alcohol Use History: Rare Past Drug Use History: None Reported - Past Family History Mother Family Medical History: Cancer Father Family Medical History: Cancer General Exam - General Exam Comments Initial Comments: General: Well-appearing, nontoxic, no acute distress. Head: Normocephalic, atraumatic Eyes: PERRLA, EOMI ENT: Airway patent Right ear: Worsening external auditory canal inflammation Chest: Nonlabored breathing Skin: No visual rash, normal skin tone Neuro: Alert and oriented 3 Musculoskeletal: No gross abnormalities Limitations: no limitations Course Vital Signs 11/02/24 14:32 Temperature 97.7 F Pulse Rate 79 Respiratory 16 Rate Blood Pressure 134/85 O2 Sat by Pulse 99 Oximetry Medical Decision Making - Medical Decision Making Was pt. sent in by a medical professional or institution (, PA, PROPERTY UTILIZATION MANAGER, urgent care, hospital, or senior living...) When possible be specific @ -No Did you speak to anyone other than the patient for history (EMS, parent, family, police, friend...)? What history was obtained from this source @ -No Did you review nursing and triage notes (agree or disagree)? Why? @ -I reviewed and agree with nursing and triage notes Were old charts reviewed (outside hosp., previous admission, EMS record, old EKG, old radiological studies, urgent care reports/EKG's, senior living records)? Report findings @ -No old charts were reviewed Differential Diagnosis (chest pain, altered mental status, abdominal pain women, abdominal pain men, vaginal bleeding, musculoskeletal, weakness, fever, dyspnea, syncope, headache, dizziness, GI bleed, back pain, seizure, CVA, palpatations, mental health)? @ -Otitis media, otitis externa, mastoiditis EKG interpreted by me (3pts min.). @ -None done X-rays interpreted by me (1pt min.). @ -None done CT interpreted by me (1pt min.). @ -None done U/S interpreted by me (1pt. min.). @ -None done What testing was considered but not performed or refused? (CT, X-rays, U/S, labs)? Why? @ -None What meds were considered but not given or refused? Why? @ -None Was smoking cessation discussed for >3mins.? @ -No Were there social determinants of health that impacted care today? How? (Homelessness, low income, unemployed, alcoholism, drug addiction, transportation, low edu. Level, literacy, decrease access to med. care, half-way, rehab)? @ -No Was there de-escalation of care discussed even if they declined (Discuss DNR or withdrawal of care, Hospice)? DNR status @ -No What co-morbidities impacted this encounter? (DM, HTN, Smoking, COPD, CAD, Cancer, CVA, ARF, Chemo, Hep., AIDS, mental health diagnosis, sleep apnea, morbid obesity)? @ -None Was patient admitted / discharged? Hospital course, mention meds given and route, prescriptions, significant lab abnormalities, going to OR and other pertinent info. @ -34-year-old male with persistent ear pain. He completed course of antibiotics with persistent ear pain. Vital signs stable. Physical examination shows otitis externa. Patient given eardrops and discharged with referral to ENT Did you discuss the management of the patient with other professionals (professionals i.e. , PA, PROPERTY UTILIZATION MANAGER, lab, RT, psych nurse, social human services assistants, drain layer, teacher, personnel officer, child welfare caseworker)? Give summary @ -No Was critical care preformed (if so, how long)? @ -No Undiagnosed new problem with uncertain prognosis? @ -No Drug Therapy requiring intensive monitoring for toxicity (Heparin, Nitro, Insulin, Cardizem)? @ -No Were any procedures done? @ -No Diagnosis/symptom? Acute, or Chronic, or Acute on Chronic? Uncomplicated (without systemic symptoms) or Complicated (systemic symptoms)? @ -Otitis externa Side effects of treatment? @ -No Exacerbation, Progression, or Severe Exacerbation? @ -No Poses a threat to life or bodily function? How? (Chest pain, USA, [place], pneumonia, PE, COPD, DKA, ARF, appy, cholecystitis, CVA, Diverticulitis, Homicidal, Suicidal, threat to staff... and all critical care pts) @ -yes Disposition Clinical Impression: Otitis externa Disposition: HOME SELF-CARE Condition: Fair Instructions (If sedation given, give patient instructions): Earache (ED) Prescriptions: Ciprofloxacin-Dexameth [Ciprodex Otic Susp] 4 drops RIGHT EAR BID 7 Days #7.5 ml Is patient prescribed a controlled substance at d/c from ED?: No Referrals: Lavelle Ruiz MD [STAFF PHYSICIAN] - 1-2 days Time of Disposition: 14:49
[2024-11-02] MEDS: ACET/COD 300 MG/30 MG STARTER PACK 6 TAB BTL PO STA (15:03)
[2024-11-02] MEDS: KETOROLAC 15 MG/ML 1 ML VIAL IM STA (15:03)
== END 2024-11-02 15:38 | disposition home or self-care (01) ==
LOC: EC 14:30
DX: H60.91 Unspecified otitis externa, right ear (principal); Z88.0 Allergy status to penicillin; Z88.1 Allergy status to other antibiotic agents; Z91.040 Latex allergy status; Z91.012 Allergy to eggs; Z91.011 Allergy to milk products; Z88.8 Allergy status to other drugs, medicaments and biological substances
CPT/HCPCS: 99283; 96372; J1885; 99282

== ENCOUNTER → 2024-12-05 | Outpatient (CLI) | payer OTHER ==
--- NOTE | 2024-12-05 19:07 | BD ---
EXAMINATION TYPE: Axial Bone Density DATE OF EXAM: 12/05/2024 CLINICAL HISTORY: 34 years old Male. ICD-10 CODE: G89.29 M54.50 Z87.39 / BACK PAIN / MS SYS , Additi onal History: Height: 63.25 Weight: 138.6 FRAX RISK QUESTIONS: Alcohol (3 or more units per day): no Family History (Parent hip fracture): no Glucocorticoids (More than 3mos): no (Ex: prednisone, prednisolone, methylprednisolone, dexamethasone, and hydrocortisone). History of Fracture in Adulthood: ribs, hand, Secondary Osteoporosis: 1. Type 1 Diabetes: no 2. Hyperthyroidism: no 3. Menopause before 45: n/a 4. Malnutrition: no 5. Chronic liver disease: no Rheumatoid Arthritis: no Current Tobacco Use: no RISK FACTORS HISTORY OF: Hip Fracture (Right/Left): no Spine Fracture: no History of Wrist Fracture: bilateral as a child Surgery to Spine/Hip(right/left)/Wrist (right/left): no MEDICATIONS: Thyroid Medications:no Osteoporosis Medications: no EXAM MEASUREMENTS: Bone mineral densitometry was performed using the [employer] System. Bone mineral density as measured about the Lumbar spine is: ----- L1-L4(G/cm2): 0.830 T Score Values are as follows: ----- L1: -3.3 ----- L2: -2.8 ----- L3: -2.8 ----- L4: -3.0 ----- L1-L4: -2.9 Z Score Values are as follows: ----- L1: -3.0 ----- L2: -2.6 ----- L3: -2.6 ----- L4: -2.8 ----- L1-L4: -2.7 Bone mineral density has: increased 8.1 % since study of: 11/17/2009 Bone mineral density about the R hip (g/cm2): 0.705 Bone mineral density about the L hip (g/cm2): 0.645 T Score values are as follows: -----R Neck: -2.6 -----L Neck: -3.1 -----R Total: -2.4 -----L Total: -2.9 Z Score values are as follows: -----R Neck: -2.5 -----L Neck: -3.1 -----R Total: -2.3 -----L Total: -2.7 BASELINE HIPS STUDY No Frax's given due to patient age. FRAX%s: The graph provided illustrates a % chance for a major osteoporotic fx and a % chance for the hips probability for fx in 10 years time. IMPRESSION: Osteoporosis (T Score less than -2.5). There is increased fracture risk and therapy is usually indicated based on age. Re-Screen 1-2 years. NOTE: T-SCORE=SD OF THE YOUNG ADULT MEAN. "" [facility], , 12/05/2024 7:04 PM
== END | disposition home or self-care (01) ==
LOC: RADBDWWP 15:59
PROVIDERS: ATTEND Family Medicine
DX: M81.0 Age-related osteoporosis without current pathological fracture (principal); M54.50 Low back pain, unspecified; Z87.39 Personal history of other diseases of the musculoskeletal system and connective tissue; G89.29 Other chronic pain
CPT/HCPCS: 77080

== ENCOUNTER 2025-01-19 18:13 | Emergency (ER) | payer OTHER ==
[2025-01-19 18:18] VITALS: BP 106/81; RESP 22
--- NOTE | 2025-01-19 19:07 | ED ---
General Adult HPI - General Chief complaint: Headache Stated complaint: Headache Time Seen by Provider: 01/19/25 18:29 Source: patient, RN notes reviewed Mode of arrival: ambulatory Limitations: no limitations - History of Present Illness Initial comments: This is a 34-year-old male with history of asthma, GERD and pneumonia presenting for right-sided headache (11/27) x 4 days. Patient endorses "fuzziness" and nausea with associated congestion, productive cough, SOB and pressure. Patient states he was recently diagnosed with an ear infection and has been taking antibiotics. Patient denies fever, chills, neck stiffness, hearing changes, epiphora, rhinorrhea, blurred vision or nausea/vomiting. Onset/Timin -: days(s) Severity scale (1-10): 4 Associated Symptoms: nausea/vomiting - Related Data Home Medications Medication Instructions Recorded Confirmed Albuterol Inhaler [Ventolin Hfa 2 puff INHALATION RT-QID PRN 07/24/24 07/24/24 Inhaler] Albuterol Nebulized [Ventolin 2.5 mg INHALATION RT-Q6H PRN 07/24/24 07/24/24 Nebulized] Atorvastatin [Lipitor] 10 mg PO HS 07/24/24 07/24/24 Dextroamphetamine/Amphetamine 10 mg PO DAILY 07/24/24 07/24/24 [Adderall Xr 10 mg Capsule] FLUoxetine HCL 40 mg PO DAILY 07/24/24 07/24/24 Famotidine [Pepcid] 20 mg PO BID 07/24/24 07/24/24 Fluticasone Propionate 110 Mcg 2 puff INHALATION RT-BID 07/24/24 07/24/24 [Flovent 110 Mcg Inhaler] Ipratropium-Albuterol Nebulize 3 ml INHALATION RT-Q6H PRN 07/24/24 07/24/24 [Duoneb 0.5 mg-3 mg/3 ml Soln] Montelukast [Singulair] 10 mg PO HS 07/24/24 07/24/24 Prazosin HCl [Minipress] 2 mg PO HS 07/24/24 07/24/24 traZODone HCL [Desyrel] 50 mg PO HS 07/24/24 07/24/24 Previous Rx's Medication Instructions Recorded Doxycycline [Vibramycin] 100 mg PO BID #14 capsule 07/24/24 predniSONE 50 mg PO DAILY #5 tab 07/24/24 predniSONE 50 mg PO DAILY #5 tab 09/28/24 Azithromycin [Zithromax Z Pack] 1 tab PO DIRECTED #6 tab 10/27/24 Ciprofloxacin-Dexameth [Ciprodex 4 drops RIGHT EAR BID 7 Days #7.5 11/02/24 Otic Susp] ml Azithromycin [Zithromax Z Pack] 0 tab PO DIRECTED #6 tab 01/16/25 Doxycycline [Vibramycin] 100 mg PO BID #14 capsule 01/19/25 Allergies Allergy/AdvReac Type Severity Reaction Status Date / Time egg Allergy Rash/Hives Verified 01/19/25 18:18 latex Allergy Rash/Hives Verified 01/19/25 18:18 milk Allergy Anaphylaxis Verified 01/19/25 18:18 Penicillins AdvReac Nausea & Verified 01/19/25 18:18 Vomiting & Diarrhea antibiotics Allergy Unknown Uncoded 01/19/25 18:18 antihistamines Allergy Unknown Uncoded 01/19/25 18:18 Review of Systems ROS Statement: Those systems with pertinent positive or pertinent negative responses have been documented in the HPI. ROS Other: All systems not noted in ROS Statement are negative. Past Medical History Past Medical History: Asthma, GERD/Reflux, Osteoarthritis (OA), Pneumonia Additional Past Medical History / Comment(s): eosinophilic gastroenteritis, osteoporosis, kidney stones History of Any Multi-Drug Resistant Organisms: MRSA Date of last positivie culture/infection: 03/02/21 MDRO Source:: [place] Past Surgical History: Unable to Obtain Additional Past Surgical History / Comment(s): surgery for undescended testicle, EGD, colonocopy Past Anesthesia/Blood Transfusion Reactions: Previous Problems w/ Anesthesia, Motion Sickness Additional Past Anesthesia/Blood Transfusion Reaction / Comment(s): "My heart stopped and I stopped breathing age 10 during a EGD/colonoscopy", was done at [facility] about 15 yrs ago. Past Psychological History: Anxiety, Depression, PTSD Smoking Status: Never smoker Past Alcohol Use History: Rare Past Drug Use History: None Reported - Past Family History Mother Family Medical History: Cancer Father Family Medical History: Cancer General Exam Limitations: no limitations General appearance: alert, in no apparent distress Head exam: Present: atraumatic, normocephalic, other (Positive right frontal and maxillary sinus TTP) Eye exam: Present: normal appearance, PERRL, EOMI. Absent: scleral icterus, conjunctival injection, periorbital swelling ENT exam: Present: normal exam, normal oropharynx, mucous membranes moist, other (Negative right mastoid edema, TTP, erythema, proptosis). Absent: TM's normal bilaterally (Positive bilateral TM opacity with right TM bulging. Negative canal edema, otorrhea.) Neck exam: Present: normal inspection, lymphadenopathy (Positive right postauricular lymphadenopathy). Absent: tenderness, meningismus Respiratory exam: Present: wheezes, decreased breath sounds, prolonged expiratory. Absent: respiratory distress, rales, rhonchi, stridor, accessory muscle use Cardiovascular Exam: Present: regular rate, normal rhythm, normal heart sounds. Absent: systolic murmur, diastolic murmur, rubs, gallop, clicks GI/Abdominal exam: Present: soft, normal bowel sounds. Absent: distended, tenderness, guarding, rebound, rigid Extremities exam: Present: normal inspection, full ROM, normal capillary refill. Absent: tenderness, pedal edema, joint swelling, calf tenderness Back exam: Present: normal inspection Neurological exam: Present: alert, oriented X3, CN II-XII intact Psychiatric exam: Present: normal affect, normal mood Skin exam: Present: warm, dry, intact, normal color. Absent: rash Course Vital Signs 01/19/25 01/19/25 01/19/25 18:15 19:13 19:54 Temperature 976 F H 97.9 F Pulse Rate 81 101 H Respiratory 22 Rate Blood Pressure 106/81 O2 Sat by Pulse 98 Oximetry 01/19/25 20:04 Temperature Pulse Rate 98 Respiratory Rate Blood Pressure O2 Sat by Pulse Oximetry Medical Decision Making - Medical Decision Making Was pt. sent in by a medical professional or institution (, PA, LANDSCAPE AND YARDWORK LABORER, urgent care, hospital, or senior living...) When possible be specific @ -No Did you speak to anyone other than the patient for history (EMS, parent, family, police, friend...)? What history was obtained from this source @ -No Did you review nursing and triage notes (agree or disagree)? Why? @ -I reviewed and agree with nursing and triage notes Were old charts reviewed (outside hosp., previous admission, EMS record, old EKG, old radiological studies, urgent care reports/EKG's, senior living records)? Report findings @ -Chart from ER visit on 01/16/2025 reviewed showing treatment for right AOM with azithromycin. Differential Diagnosis (chest pain, altered mental status, abdominal pain women, abdominal pain men, vaginal bleeding, weakness, fever, dyspnea, syncope, headache, dizziness, GI bleed, back pain, seizure, CVA, palpatations, mental health, musculoskeletal)? @ -Differential Headache: Migraine, tension, cluster, carbon monoxide, central venous thrombosis, pension karma temporal arteritis, acute closure glaucoma, intercranial hemorrhage, mastoiditis, sinusitis, head injury, this is not meant to be an all-inclusive list. EKG interpreted by me (3pts min.). @ -Not done X-rays interpreted by me (1pt min.). @ -None done CT interpreted by me (1pt min.). @ -None done U/S interpreted by me (1pt. min.). @ -None done What testing was considered but not performed or refused? (CT, X-rays, U/S, labs)? Why? @ -Head CT scan considered but with obvious sinus tenderness on affected side with described pressure, this was deferred at this time. What meds were considered but not given or refused? Why? @ -None Did you discuss the management of the patient with other professionals (professionals i.e. , PA, LANDSCAPE AND YARDWORK LABORER, lab, RT, psych nurse, social and political studies professor, criminal defense lawyer, teacher, special assets officer, case technician)? Give summary @ -No Was smoking cessation discussed for >3mins.? @ -No Was critical care preformed (if so, how long)? @ -No Were there social determinants of health that impacted care today? How? (Homelessness, low income, unemployed, alcoholism, drug addiction, transportation, low edu. Level, literacy, decrease access to med. care, [place] [facility], rehab)? @ -No Was there de-escalation of care discussed even if they declined (Discuss DNR or withdrawal of care, Hospice)? DNR status @ -No What co-morbidities impacted this encounter? (DM, HTN, Smoking, COPD, CAD, Cancer, CVA, ARF, Chemo, Hep., AIDS, mental health diagnosis, sleep apnea, morbid obesity)? @ -None Was patient admitted / discharged? Hospital course, mention meds given and route, prescriptions, significant lab abnormalities, going to OR and other pertinent info. @ -Cepheid test negative. CXR shows no acute pulmonary infiltrate. Patient initially provided IV normal saline, Reglan, Toradol, Benadryl and DuoNeb breathing treatment. Significant right frontal and maxillary tenderness indicating likely sinusitis as cause of right-sided pressure/headache. Patient notes some pressure relief. Also provided IV Zofran for ongoing nausea and Decadron. Patient provided initial dose of p.o. doxycycline with remaining regimen sent to patient's pharmacy. Advised hold on azithromycin use. Advised Flonase nasal spray and Sudafed use as directed. Once daily nasal saline irrigation also recommended. Follow-up with PCP for any ongoing or worsening symptoms. Discussed patient with Dr. Wyman. Undiagnosed new problem with uncertain prognosis? @ -No Drug Therapy requiring intensive monitoring for toxicity (Heparin, Nitro, Insulin, Cardizem)? @ -No Were any procedures done? @ -No Diagnosis/symptom? @ -AOM, sinusitis Acute, or Chronic, or Acute on Chronic? @ -Acute Uncomplicated (without systemic symptoms) or Complicated (systemic symptoms)? @ -Uncomplicated Side effects of treatment? @ -No Exacerbation, Progression, or Severe Exacerbation? @ -No Poses a threat to life or bodily function? How? (Chest pain, USA, [place], pneumonia, PE, COPD, DKA, ARF, appy, cholecystitis, CVA, Diverticulitis, Homicidal, Suicidal, threat to staff... and all critical care pts) @ -No - Lab Data Lab Results 01/19/25 Range/Units 19:13 Influenza Type A (PCR) Not Detected (Not Detectd) Influenza Type B (PCR) Not Detected (Not Detectd) RSV (PCR) Not Detected (Not Detectd) SARS-CoV-2 (PCR) Not Detected (Not Detectd) Disposition Clinical Impression: Right otitis media, Sinusitis, acute Disposition: HOME SELF-CARE Instructions (If sedation given, give patient instructions): Sinusitis (ED), Ear Infection (ED) Additional Instructions: Flonase nasal spray once every 12 hours as needed. [id number] Sudafed as directed for sinus/ear pressure/congestion. Alternate Tylenol/Motrin every 4 hours for fever/pain. Follow-up with PCP/ENT for any ongoing or worsening symptoms. Prescriptions: Doxycycline [Vibramycin] 100 mg PO BID #14 capsule Is patient prescribed a controlled substance at d/c from ED?: No Referrals: Breanna Mao MD [Primary Care Provider] - 1-2 days Sabine Ford MD [Medical Doctor] - 1-2 days Time of Disposition: 20:30
[2025-01-19] MEDS: SODIUM CHLORIDE 0.9% 1,000 ML IV STA (19:09)
[2025-01-19 19:13] VITALS: TEMP 97.9
--- NOTE | 2025-01-19 19:27 | XR ---
EXAMINATION TYPE: XR chest 2V DATE OF EXAM: 01/19/2025 CLINICAL INDICATION: Male, 34 years old with history of Productive cough, TECHNIQUE: Frontal and lateral views of the chest are obtained. COMPARISON: Chest x-ray September 28, 2024 FINDINGS: There is no focal air space opacity, pleural effusion, or pneumothorax seen. The cardiac silhouette size is within normal limits. The osseous structures are intact. IMPRESSION: No acute pulmonary infiltrate. [facility], , 01/19/2025 7:25 PM
[2025-01-19] MEDS: diphenhydrAMINE 50 MG/ML 1 ML VIAL IVP STA (19:45)
[2025-01-19] MEDS: KETOROLAC 15 MG/ML 1 ML VIAL IVP STA (19:46)
[2025-01-19] MEDS: METOCLOPRAMIDE 5 MG/ML 2 ML VIAL IVP STA (19:47)
[2025-01-19] MEDS: IPRATROPIUM-ALBUTEROL 3 ML NEB INHALATION STA (19:52)
[2025-01-19 19:55] LABS: Influenza A Not Detected (Not Detectd); Influenza B Not Detected (Not Detectd); RSV Not Detected (Not Detectd)
[2025-01-19 20:09] VITALS: PULSE 98
[2025-01-19] MEDS: ONDANSETRON 4 MG/2 ML VIAL IVP STA (20:38)
[2025-01-19] MEDS: DEXAMETHASONE SOD PHOSPHATE 4 MG/ML 1 ML VIAL IVP STA (20:41)
[2025-01-19] MEDS: DOXYCYCLINE 100 MG TABLET PO ONE (20:42)
== END 2025-01-19 20:47 | disposition home or self-care (01) ==
LOC: EC 18:13
DX: H66.91 Otitis media, unspecified, right ear (principal); J01.90 Acute sinusitis, unspecified; Z88.0 Allergy status to penicillin; Z88.1 Allergy status to other antibiotic agents; Z91.040 Latex allergy status; Z91.012 Allergy to eggs; Z91.011 Allergy to milk products
CPT/HCPCS: 94640; 87636; 71046; 99284; 96374; 96375 ×4; 96361 ×2; J1200; J1100; J2765; J2405; J1885

== ENCOUNTER 2025-03-14 09:37 | Emergency (ER) | payer OTHER ==
[2025-03-14 09:40] VITALS: RESP 20; TEMP 98.4
--- NOTE | 2025-03-14 09:51 | ED ---
General Adult HPI - General Chief complaint: Abdominal Pain Stated complaint: L sided flank pain Time Seen by Provider: 03/14/25 09:43 Source: patient, RN notes reviewed Mode of arrival: ambulatory Limitations: no limitations - History of Present Illness Initial comments: 35-year-old male with history of nephrolithiasis presenting to the urgency department for complaints of left-sided abdominal pain with radiation to the left flank that started about an hour ago. He states that he woke up this morning and pain worsened described as a stabbing type of sensation. He had an episode of emesis due to the pain. States that he feels like he has to urinate however is unable to. Denies dysuria, hematuria, increased urinary frequency or urgency, diarrhea, constipation. Denies previous surgeries due to kidney stones in the past. Denies previous surgical abdominal history. - Related Data Home Medications Medication Instructions Recorded Confirmed Albuterol Inhaler [Ventolin Hfa 2 puff INHALATION RT-QID PRN 07/24/24 07/24/24 Inhaler] Albuterol Nebulized [Ventolin 2.5 mg INHALATION RT-Q6H PRN 07/24/24 07/24/24 Nebulized] Atorvastatin [Lipitor] 10 mg PO HS 07/24/24 07/24/24 Dextroamphetamine/Amphetamine 10 mg PO DAILY 07/24/24 07/24/24 [Adderall Xr 10 mg Capsule] FLUoxetine HCL 40 mg PO DAILY 07/24/24 07/24/24 Famotidine [Pepcid] 20 mg PO BID 07/24/24 07/24/24 Fluticasone Propionate 110 Mcg 2 puff INHALATION RT-BID 07/24/24 07/24/24 [Flovent 110 Mcg Inhaler] Ipratropium-Albuterol Nebulize 3 ml INHALATION RT-Q6H PRN 07/24/24 07/24/24 [Duoneb 0.5 mg-3 mg/3 ml Soln] Montelukast [Singulair] 10 mg PO HS 07/24/24 07/24/24 Prazosin HCl [Minipress] 2 mg PO HS 07/24/24 07/24/24 traZODone HCL [Desyrel] 50 mg PO HS 07/24/24 07/24/24 Previous Rx's Medication Instructions Recorded Doxycycline [Vibramycin] 100 mg PO BID #14 capsule 07/24/24 predniSONE 50 mg PO DAILY #5 tab 07/24/24 predniSONE 50 mg PO DAILY #5 tab 09/28/24 Azithromycin [Zithromax Z Pack] 1 tab PO DIRECTED #6 tab 10/27/24 Ciprofloxacin-Dexameth [Ciprodex 4 drops RIGHT EAR BID 7 Days #7.5 11/02/24 Otic Susp] ml Azithromycin [Zithromax Z Pack] 0 tab PO DIRECTED #6 tab 01/16/25 Doxycycline [Vibramycin] 100 mg PO BID #14 capsule 01/19/25 HYDROcodone/APAP 7.5-325MG [[place] 1 tab PO Q6HR PRN 3 Days #12 tab 03/14/25 7.5-325] Ondansetron Odt [Zofran Odt] 4 mg PO Q8HR PRN #10 tab 03/14/25 Tamsulosin [Flomax] 0.4 mg PO DAILY #7 cap 03/14/25 predniSONE 50 mg PO DAILY #5 tab 03/14/25 Allergies Allergy/AdvReac Type Severity Reaction Status Date / Time egg Allergy Rash/Hives Verified 03/14/25 09:40 latex Allergy Rash/Hives Verified 03/14/25 09:40 milk Allergy Anaphylaxis Verified 03/14/25 09:40 Penicillins AdvReac Nausea & Verified 03/14/25 09:40 Vomiting & Diarrhea antibiotics Allergy Unknown Uncoded 03/14/25 09:40 antihistamines Allergy Unknown Uncoded 03/14/25 09:40 Review of Systems ROS Statement: Those systems with pertinent positive or pertinent negative responses have been documented in the HPI. ROS Other: All systems not noted in ROS Statement are negative. Past Medical History Past Medical History: Asthma, GERD/Reflux, Osteoarthritis (OA), Pneumonia Additional Past Medical History / Comment(s): eosinophilic gastroenteritis, osteoporosis, kidney stones History of Any Multi-Drug Resistant Organisms: MRSA Date of last positivie culture/infection: 03/02/21 MDRO Source:: [place] Past Surgical History: Unable to Obtain Additional Past Surgical History / Comment(s): surgery for undescended testicle, EGD, colonocopy Past Anesthesia/Blood Transfusion Reactions: Previous Problems w/ Anesthesia, Motion Sickness Additional Past Anesthesia/Blood Transfusion Reaction / Comment(s): "My heart stopped and I stopped breathing age 10 during a EGD/colonoscopy", was done at [facility] about 15 yrs ago. Past Psychological History: Anxiety, Depression, PTSD Smoking Status: Never smoker Past Alcohol Use History: Rare Past Drug Use History: None Reported - Past Family History Mother Family Medical History: Cancer Father Family Medical History: Cancer General Exam Limitations: no limitations Respiratory exam: Present: normal lung sounds bilaterally. Absent: respiratory distress, wheezes, rales, rhonchi, stridor Cardiovascular Exam: Present: regular rate, normal rhythm, normal heart sounds. Absent: systolic murmur, diastolic murmur, rubs, gallop, clicks GI/Abdominal exam: Present: soft, tenderness (left flank), normal bowel sounds. Absent: distended, guarding, rebound, rigid Extremities exam: Present: normal inspection, full ROM, normal capillary refill. Absent: tenderness, pedal edema, joint swelling, calf tenderness Back exam: Present: CVA tenderness (L). Absent: CVA tenderness (R) Course Vital Signs 03/14/25 03/14/25 03/14/25 09:39 10:34 11:36 Temperature 98.4 F Pulse Rate 69 70 64 Respiratory 20 20 20 Rate Blood Pressure 105/70 113/79 111/77 O2 Sat by Pulse 96 100 98 Oximetry Medical Decision Making - Medical Decision Making Was pt. sent in by a medical professional or institution ([facility], MACHINE STITCHER, urgent care, hospital, or fpc...) When possible be specific @ -No Did you speak to anyone other than the patient for history (EMS, parent, family, police, friend...)? What history was obtained from this source @ -No Did you review nursing and triage notes (agree or disagree)? Why? @ -I reviewed and agree with nursing and triage notes Were old charts reviewed (outside hosp., previous admission, EMS record, old EKG, old radiological studies, urgent care reports/EKG's, fpc records)? Report findings @ -No old charts were reviewed Differential Diagnosis (chest pain, altered mental status, abdominal pain women, abdominal pain men, vaginal bleeding, weakness, fever, dyspnea, syncope, headache, dizziness, GI bleed, back pain, seizure, CVA, palpatations, mental health, musculoskeletal)? @ -Differential Abdominal Pain Men: Appendicitis, cholecystitis, diverticulosis, ischemic bowel, pancreatitis, hepatitis, UTI, gastroenteritis, AAA, incarcerated hernia, bowel obstruction, constipation, inflammatory bowel, hepatitis, peptic ulcer disease, splenic infarction, perforated viscus, testicular torsion, this is not meant to be an all-inclusive list EKG interpreted by me (3pts min.). @ -none X-rays interpreted by me (1pt min.). @ -None done CT interpreted by me (1pt min.). @ -CT imaging of the abdomen pelvis without contrast reveals a 2.5 mm calculus passing into the urinary bladder and resides adjacent to the right UVJ with an additional 2 mm nonobstructing calculus in the upper pole of the right kidney U/S interpreted by me (1pt. min.). @ -None done What testing was considered but not performed or refused? (CT, X-rays, U/S, labs)? Why? @ -None What meds were considered but not given or refused? Why? @ -None Did you discuss the management of the patient with other professionals (professionals i.e. , PA, MACHINE STITCHER, lab, RT, psych nurse, social sciences lecturer, skein bander, teacher, jailer/training officer, manager of case management)? Give summary @ -No Was smoking cessation discussed for >3mins.? @ -No Was critical care preformed (if so, how long)? @ -No Were there social determinants of health that impacted care today? How? (Homelessness, low income, unemployed, alcoholism, drug addiction, transportatio n, low edu. Level, literacy, decrease access to med. care, intermediate, rehab)? @ -No Was there de-escalation of care discussed even if they declined (Discuss DNR or withdrawal of care, Hospice)? DNR status @ -No What co-morbidities impacted this encounter? (DM, HTN, Smoking, COPD, CAD, Cancer, CVA, ARF, Chemo, Hep., AIDS, mental health diagnosis, sleep apnea, morbid obesity)? @ -None Was patient admitted / discharged? Hospital course, mention meds given and route, prescriptions, significant lab abnormalities, going to OR and other pertinent info. @ -Discharge. 35-year-old male presenting with flank pain. Pain is reproduced on examination. He is provided with pain medication and antiemetics. CT reveals a 2.5 mm calculus. Urine reveals blood with no signs of infection. Patient is discharged in stable condition and provided with outpatient prescription for Flomax, Zofran, pain medications in addition to dose of steroids as he has history of eosinophilic esophagitis. Case discussed with my attending Dr. Lake new problem with uncertain prognosis? @ -No Drug Therapy requiring intensive monitoring for toxicity (Heparin, Nitro, Insulin, Cardizem)? @ -No Were any procedures done? @ -No Diagnosis/symptom? @ -Kidney stone Acute, or Chronic, or Acute on Chronic? @ -acute Uncomplicated (without systemic symptoms) or Complicated (systemic symptoms)? @ -uncomplicated Side effects of treatment? @ -No Exacerbation, Progression, or Severe Exacerbation? @ -No Poses a threat to life or bodily function? How? (Chest pain, [place], AL, pneumonia, PE, COPD, DKA, ARF, appy, cholecystitis, CVA, Diverticulitis, Homicidal, Suicidal, threat to staff... and all critical care pts) @ -No - Lab Data Result diagrams: 03/14/25 10:15 03/14/25 10:15 Lab Results 03/14/25 03/14/25 03/14/25 Range/Units 10:15 10:15 11:27 WBC 9.07 (4.50-10.00) 10*3/uL RBC 4.94 (4.40-5.60) 10*6/uL Hgb 14.7 (13.0-17.0) g/dL Hct 42.3 (39.6-50.0) % MCV 85.6 (80.0-97.0) fL MCH 29.8 (27.0-32.0) pg MCHC 34.8 (32.0-37.0) g/dL Plt Count 296 (140-440) 10*3/uL MPV 9.8 (9.5-12.2) fL Immature Gran % (Auto) 0.6 % Neutrophils % 67.2 % Lymphocytes % 26.0 % Monocytes % 6.1 % Eosinophils % 0.0 % Basophils % 0.1 % Immature Gran # 0.05 H (0.00-0.04) 10*3/uL Neutrophils # 6.10 (1.80-7.70) 10*3/uL Lymphocytes # 2.36 (0.90-5.00) 10*3/uL Monocytes # 0.55 (0.20-1.00) 10*3/uL Eosinophils # 0.00 L (0.04-0.35) 10*3/uL Basophils # 0.01 (0.00-0.10) 10*3/uL Sodium 134 L (137-145) mmol/L Potassium 4.1 (3.5-5.1) mmol/L Chloride 103 (98-107) mmol/L Carbon Dioxide 20 L (22-30) mmol/L Anion Gap 11 mmol/L BUN 12 (9-20) mg/dL Creatinine 1.05 (0.66-1.25) mg/dL Est GFR (CKD-EPI)AfAm >90 (>60 ml/min/1.73 sqM) Est GFR (CKD-EPI)NonAf >90 (>60 ml/min/1.73 sqM) Glucose 89 (74-99) mg/dL Calcium 9.2 (8.4-10.2) mg/dL Total Bilirubin 0.4 (0.2-1.3) mg/dL AST 22 (17-59) U/L ALT 16 (4-49) U/L Alkaline Phosphatase 68 (38-126) U/L Total Protein 6.4 (6.3-8.2) g/dL Albumin 4.1 (3.5-5.0) g/dL Lipase 70 (23-300) U/L Urine Color Colorless Urine Appearance Clear (Clear) Urine pH 6.5 (5.0-8.0) Ur Specific [place] 1.011 (1.001-1.035) Urine Protein Negative (Negative) Urine Glucose (UA) Negative (Negative) Urine Ketones Negative (Negative) Urine Blood Moderate H (Negative) Urine Nitrite Negative (Negative) Urine Bilirubin Negative (Negative) Urine Urobilinogen <2.0 (<2.0) mg/dL Ur Leukocyte Esterase Negative (Negative) Urine RBC 61 H (0-5) /hpf Urine WBC 1 (0-5) /hpf Hyaline Casts 1 (0-2) /lpf Urine Mucus Rare H (None) /hpf Disposition Clinical Impression: Kidney stone Disposition: HOME SELF-CARE Condition: Good Instructions (If sedation given, give patient instructions): Kidney Stones (ED) Additional Instructions: Please return to the Emergency Department if symptoms worsen or any other concerns. Prescriptions: Tamsulosin [Flomax] 0.4 mg PO DAILY #7 cap HYDROcodone/APAP 7.5-325MG [[place] 7.5-325] 1 tab PO Q6HR PRN 3 Days #12 tab PRN Reason: Severe Pain (Scale 7 To 10) predniSONE 50 mg PO DAILY #5 tab Ondansetron Odt [Zofran Odt] 4 mg PO Q8HR PRN #10 tab PRN Reason: Nausea Is patient prescribed a controlled substance at d/c from ED?: Yes If prescribed controlled substance>3 days was MAPS reviewed?: Prescribed <3 Days If Rx opioid, was Start Talking consent form obtained?: Yes Referrals: Breanna Mao MD [Primary Care Provider] - 1-2 days Time of Disposition: 11:40
[2025-03-14] MEDS: KETOROLAC 15 MG/ML 1 ML VIAL IVP STA (10:10)
[2025-03-14] MEDS: ONDANSETRON 4 MG/2 ML VIAL IVP STA (10:11)
[2025-03-14] MEDS: SODIUM CHLORIDE 0.9% 1,000 ML IV ONE (10:12)
[2025-03-14] MEDS: HYDROmorphone 1 MG/ML 1 ML SYRINGE IVP STA (10:12)
[2025-03-14 10:39] LABS: Basophils # (A) 0.01 10*3/uL (0.00-0.10); Basophils % (A) 0.1 %; Eosinophils # (A) 0.00 10*3/uL (0.04-0.35); Eosinophils % (A) 0.0 %; HCT 42.3 % (39.6-50.0); HGB 14.7 g/dL (13.0-17.0); Lymphocytes # (A) 2.36 10*3/uL (0.90-5.00); Lymphocytes % (A) 26.0 %; MCH 29.8 pg (27.0-32.0); MCHC 34.8 g/dL (32.0-37.0); MCV 85.6 fL (80.0-97.0); Monocytes # (A) 0.55 10*3/uL (0.20-1.00); Monocytes % (A) 6.1 %; Neutrophils # (A) 6.10 10*3/uL (1.80-7.70); Neutrophils % (A) 67.2 %; Platelet Count 296 10*3/uL (140-440); RBC 4.94 10*6/uL (4.40-5.60); RDW 12.5 % (11.5-14.5); WBC 9.07 10*3/uL (4.50-10.00)
--- NOTE | 2025-03-14 10:46 | CT ---
EXAMINATION TYPE: CT abdomen pelvis wo con DATE OF EXAM: 03/14/2025 10:27 AM COMPARISON: None. CLINICAL INDICATION: Male, 35 years old with history of R flank pain, hx stones, right flank pain, hi story of stones TECHNIQUE: Axial images with sagittal coronal reformats. Examination of the solid and hollow viscera is limited given the lack of contrast. CT DLP: 427.9 mGycm, Automated exposure control for dose reduction was used. FINDINGS: LUNG BASES: No evidence for nodule. No evidence for infiltrate. LIVER/GB: The gallbladder is unremarkable. No space-occupying hepatic lesion. PANCREAS: No pancreatic mass identified. No inflammatory process seen. SPLEEN: No evidence for splenomegaly. No intrasplenic lesions seen. ADRENALS: No adrenal nodules identified. No evidence for thickening. KIDNEYS: No evidence for renal mass. 2.5 mm calculus which appears to pass into the urinary bladder a nd resides adjacent to the right UVJ. No significant hydronephrosis. Additional 2 mm nonobstructing c alculus upper pole right kidney. BOWEL: Appendix has a normal appearance. No evidence of bowel obstruction. No inflammatory process. Lymph nodes: No evidence for adenopathy greater than 1 cm. Abdominal aorta: Atheromatous changes seen. No evidence for aneurysm. Genital organs: No significant abnormality. Other: No significant abnormality. IMPRESSION: 2.5 mm calculus which appears to have passed into the urinary bladder and resides adjacent to the rig ht UVJ. No significant hydronephrosis. Additional 2 mm nonobstructing calculus upper pole right kidne y. [facility], , 03/14/2025 10:44 AM
[2025-03-14 11:01] LABS: ALT 16 U/L (4-49); AST 22 U/L (17-59); African American GFR (CKD) >90 (>60 ml/min/1.73 sqM); Albumin 4.1 g/dL (3.5-5.0); Alkaline Phosphatase 68 U/L (38-126); Anion Gap 11 mmol/L; Blood Urea Nitrogen 12 mg/dL (9-20); Calcium 9.2 mg/dL (8.4-10.2); Carbon Dioxide 20 mmol/L (22-30); Chloride 103 mmol/L (98-107); Glucose 89 mg/dL (74-99); Lipase 70 U/L (23-300); Non-African American GFR(CKD) >90 (>60 ml/min/1.73 sqM); Potassium 4.1 mmol/L (3.5-5.1); Sodium 134 mmol/L (137-145); Total Protein 6.4 g/dL (6.3-8.2)
[2025-03-14] MEDS: METOCLOPRAMIDE 5 MG/ML 2 ML VIAL IVP STA (11:34)
[2025-03-14 11:39] LABS: Bilirubin,Urine Negative (Negative); Blood,Urine Moderate (Negative); Color,Urine Colorless; Glucose,Urine (UA) Negative (Negative); Hyaline Casts,Urine 1 /lpf (0-2); Ketones,Urine Negative (Negative); Leukocyte Esterase,Urine Negative (Negative); Mucus,Urine Rare /hpf; Nitrite,Urine Negative (Negative); PH, Urine 6.5 (5.0-8.0); Protein,Urine Negative (Negative); RBC,Urine 61 /hpf (0-5); Specific Gravity,Urine 1.011 (1.001-1.035); Urobilinogen,Urine <2.0 mg/dL (<2.0); WBC,Urine 1 /hpf (0-5)
[2025-03-14 12:53] VITALS: BP 118/79; PULSE 68
== END 2025-03-14 13:00 | disposition home or self-care (01) ==
LOC: EC 09:37
DX: N20.0 Calculus of kidney (principal); Z88.0 Allergy status to penicillin; Z91.011 Allergy to milk products; Z91.012 Allergy to eggs; Z88.1 Allergy status to other antibiotic agents; Z91.040 Latex allergy status
CPT/HCPCS: 36415; 80053; 83690; 85025; 81001; 74176; 99284; 96374; 96375; 96361; J2765; J2405; J1171; J1885